=== PATIENT | female | born 1960 ===

== ENCOUNTER 2017-09-18 14:31 | Inpatient (IN) ==
[2017-09-18 15:25] LABS: Basophils % 0.9 % (0.0-0.8); Eosinophils # 0.1 10*3/uL (0.0-0.87); Eosinophils % 3.5 % (0.00-10.9); Immature Granulocytes % 0.9 %; Immature Granulocytes Absolute 0.03 #; Lymphocytes # 0.6 10*3/uL (1.4-4.0); Lymphocytes % 16.4 % (21.3-54.2); Mean Corpuscular HGB Conc 30.8 GM/DL (32-36); Mean Corpuscular Hemoglobin 37 PG (27-34); Mean Corpuscular Volume 119.2 FL (87-102); Mean Platelet Volume 11.8 FL (9.6-12.0); Monocytes # 0.3 10*3/uL (0.11-0.8); Monocytes % 9.1 % (1.7-12.7); Neutrophils # 2.4 10*3/uL (1.4-7.4); Neutrophils % 69.2 % (38.7-73.9); Red Blood Count 1.77 MC/CUMM (3.8-5.5); Red Cell Distribution Width 17.9 % (9.3-17.3); White Blood Count 3.4 T/CUMM (4-12)
[2017-09-18 15:31] LABS: Hemoglobin 6.5 GM/DL (12.0-16.0); Platelet Count 37 T/CUMM (130-400)
[2017-09-18 15:32] LABS: Hematocrit 21.1 VOL% (35.7-47.0)
[2017-09-18 15:55] LABS: Albumin 2.7 G/DL (3.4-5.0); Calcium 7.2 MG/DL (8.5-10.1); Osmolality,Calculated 290.5 MOS/KG (273-304); Potassium 3.8 MMOL/L (3.5-5.1); Total Protein 7.3 G/DL (6.4-8.3)
[2017-09-18 16:40] LABS: Hypochromasia 2+; Platelet Estimate Decreased; Target Cells 1+
[2017-09-18] MEDS ORDERED: GLUCAGON 1 MG VIAL IM PRN (16:44)
[2017-09-18] MEDS ORDERED: DEXTROSE 50% 25 GM/50 ML VIAL IV PRN (16:44)
[2017-09-18] MEDS ORDERED: DOCUSATE SODIUM 100 MG CAPSULE PO PRN (16:44)
[2017-09-18] MEDS: GABAPENTIN 100 MG CAPSULE PO SCH (21:56)
[2017-09-18] MEDS: SIMVASTATIN 20 MG TABLET PO SCH (21:56)
[2017-09-18] MEDS: CARVEDILOL 25 MG TABLET PO SCH (21:56)
[2017-09-18] MEDS: INSULIN REGULAR 100 UNIT/ML SUBCUT SCH (22:51)
[2017-09-18] MEDS: ACETAMINOPHEN 325 MG TABLET PO PRN (23:06)
[2017-09-19 05:24] LABS: Basophils % 0.7 % (0.0-0.8); Eosinophils # 0.1 10*3/uL (0.0-0.87); Eosinophils % 3.1 % (0.00-10.9); Hematocrit 18.9 VOL% (35.7-47.0); Immature Granulocytes Absolute 0.04 #; Lymphocytes # 0.6 10*3/uL (1.4-4.0); Lymphocytes % 13.3 % (21.3-54.2); Mean Corpuscular HGB Conc 30.7 GM/DL (32-36); Mean Corpuscular Hemoglobin 37 PG (27-34); Mean Corpuscular Volume 119.6 FL (87-102); Mean Platelet Volume 12.1 FL (9.6-12.0); Monocytes # 0.4 10*3/uL (0.11-0.8); Monocytes % 8.4 % (1.7-12.7); Neutrophils # 3.1 10*3/uL (1.4-7.4); Neutrophils % 73.5 % (38.7-73.9); Red Blood Count 1.58 MC/CUMM (3.8-5.5); White Blood Count 4.2 T/CUMM (4-12)
[2017-09-19 05:36] LABS: Hemoglobin 5.8 GM/DL (12.0-16.0)
[2017-09-19 05:37] LABS: Platelet Count 36 T/CUMM (130-400)
[2017-09-19 05:57] LABS: Calcium 6.5 MG/DL (8.5-10.1); Osmolality,Calculated 298.1 MOS/KG (273-304); Potassium 4.4 MMOL/L (3.5-5.1)
[2017-09-19 06:00] LABS: Hypochromasia 1+
[2017-09-19 06:01] LABS: Giant Platelets Few; Ovalocytes Slight; Platelet Estimate Decreased
[2017-09-19 06:47] LABS: HIV Antigen/Antibody Result Nonreactive (Nonreactive)
[2017-09-19] MEDS: MULTIVITAMIN (BEROCCA) TABLET PO SCH (08:50)
[2017-09-19] MEDS: amLODIPine 2.5 MG TABLET PO SCH (08:50)
[2017-09-19] MEDS: SEVELAMER CARBONATE 800 MG TABLET PO SCH ×3 (08:50→17:14)
[2017-09-19] MEDS: INSULIN REGULAR 100 UNIT/ML SUBCUT SCH ×4 (08:50→21:24)
[2017-09-19] MEDS: CARVEDILOL 25 MG TABLET PO SCH ×2 (08:50→21:25)
[2017-09-19] MEDS ORDERED: PANTOPRAZOLE 40 MG TABLET PO SCH (09:00)
[2017-09-19] MEDS ORDERED: SODIUM CHLORIDE 0.9% 1,000 ML IV PRN (09:54)
[2017-09-19] MEDS ORDERED: CINACALCET 30 MG TABLET PO SCH (17:00)
[2017-09-19] MEDS: ACETAMINOPHEN 325 MG TABLET PO PRN (17:14)
[2017-09-19 18:13] LABS: Hematocrit 25.6 VOL% (35.7-47.0); Hemoglobin 8.1 GM/DL (12.0-16.0)
[2017-09-19] MEDS: GABAPENTIN 100 MG CAPSULE PO SCH (21:25)
[2017-09-19] MEDS: SIMVASTATIN 20 MG TABLET PO SCH (21:25)
[2017-09-20] MEDS: INSULIN REGULAR 100 UNIT/ML SUBCUT SCH ×2 (08:16→11:36)
[2017-09-20] MEDS: MULTIVITAMIN (BEROCCA) TABLET PO SCH (10:56)
[2017-09-20] MEDS: CARVEDILOL 25 MG TABLET PO SCH (10:56)
[2017-09-20] MEDS: amLODIPine 2.5 MG TABLET PO SCH (10:56)
[2017-09-20] MEDS: SEVELAMER CARBONATE 800 MG TABLET PO SCH ×2 (10:57→11:41)
[2017-09-20 10:59] LABS: Ferritin 791.1 ng/ml (8-252); Total Protein 7.1 G/DL (6.4-8.3)
[2017-09-20 11:24] VITALS: BP 129/65
[2017-09-23 11:48] LABS: Albumin (SPE) 3.7 G/DL (3.2-5.3); Albumin (SPE) Rel % 52.5 %; Alpha 1 (SPE) 0.2 G/DL (0.1-0.4); Alpha 1 (SPE) Rel % 3.3 %; Alpha 2 (SPE) 0.5 G/DL (0.4-1.0); Alpha 2 (SPE) Rel % 7.8 %; Beta (SPE) 0.7 G/DL (0.5-1.1); Gamma (SPE) 1.9 G/DL (0.7-1.7); Gamma (SPE) Rel % 26.4 %; Total Protein (Chem) 7.1 G/DL (6.4-8.3)
== END 2017-09-20 17:20 | disposition home or self-care (01) | DRG 811 ==
LOC: EDUNIT# → EDBD → N.ED 14:31 → N.EDINP 14:31 → N.3E 19:03
PROVIDERS: ADMIT Internal Medicine; ATTEND Internal Medicine

== ENCOUNTER 2017-10-06 17:54 | Inpatient (IN) ==
[2017-10-06] MEDS ORDERED: GLUCAGON 1 MG VIAL IM PRN (21:54)
[2017-10-06] MEDS ORDERED: ONDANSETRON 4 MG/2 ML VIAL IV PRN (21:54)
[2017-10-06] MEDS ORDERED: DEXTROSE 50% 25 GM/50 ML VIAL IV PRN (21:54)
[2017-10-06] MEDS: ACETAMINOPHEN 325 MG TABLET PO PRN (23:34)
[2017-10-06] MEDS: CEFTAROLINE 600 MG in SODIUM CHLORIDE 0.9% 100 ML IV SCH (23:47)
[2017-10-07] MEDS: ACETAMINOPHEN 325 MG TABLET PO PRN ×3 (04:47→18:00)
[2017-10-07 05:43] LABS: Basophils % 0.3 % (0.0-0.8); Eosinophils # 0.1 10*3/uL (0.0-0.87); Eosinophils % 0.9 % (0.00-10.9); Hematocrit 27.4 VOL% (35.7-47.0); Hemoglobin 8.8 GM/DL (12.0-16.0); Immature Granulocytes % 0.6 %; Immature Granulocytes Absolute 0.05 #; Lymphocytes # 0.3 10*3/uL (1.4-4.0); Lymphocytes % 3.8 % (21.3-54.2); Mean Corpuscular HGB Conc 32.1 GM/DL (32-36); Mean Corpuscular Hemoglobin 36 PG (27-34); Mean Corpuscular Volume 112.3 FL (87-102); Mean Platelet Volume 12.7 FL (9.6-12.0); Monocytes # 0.2 10*3/uL (0.11-0.8); NRBC # 0.02 10*3/uL; Neutrophils # 7.3 10*3/uL (1.4-7.4); Neutrophils % 91.4 % (38.7-73.9); Red Blood Count 2.44 MC/CUMM (3.8-5.5); Red Cell Distribution Width 19.5 % (9.3-17.3)
[2017-10-07 05:52] LABS: INR 1.4; PT Patient Result 14.9 SECS
[2017-10-07 05:53] LABS: INR 1.4; PT Patient Result 14.9 SECS; Partial Thromboplastin Time 32.1 SECS (0-40)
[2017-10-07 05:57] LABS: Platelet Count 29 T/CUMM (130-400)
[2017-10-07 06:14] LABS: Calcium 7.2 MG/DL (8.5-10.1); Osmolality,Calculated 291.4 MOS/KG (273-304); Potassium 4.2 MMOL/L (3.5-5.1)
[2017-10-07 07:08] LABS: Band Neutrophils 18 % (0-10); Eosinophils 1 % (0-10); Hypochromasia 2+; Lymphocytes 2 % (20-55); Microcytosis 2+; Platelet Estimate Decreased; Segmented Neutrophils 74 % (50-85); Total Cells Counted 100
[2017-10-07] MEDS ORDERED: ALBUTEROL 2.5 MG/3 ML NEB RESP TX PRN (08:09)
[2017-10-07] MEDS: INSULIN LISPRO 100 UNIT/ML SUBCUT SCH ×4 (08:34→21:13)
[2017-10-07] MEDS: SEVELAMER CARBONATE 800 MG TABLET PO SCH ×3 (09:26→17:58)
[2017-10-07] MEDS: MULTIVITAMIN (BEROCCA) TABLET PO SCH (09:27)
[2017-10-07] MEDS: MULTIVITAMIN (CENTRUM) TABLET PO SCH (09:27)
[2017-10-07] MEDS: CARVEDILOL 25 MG TABLET PO SCH ×2 (09:27→21:12)
[2017-10-07] MEDS: CLINDAMYCIN INJ 600 MG in PREMIX 1 EACH IV SCH ×2 (13:29→17:59)
[2017-10-07] MEDS: CEFTAROLINE 600 MG in SODIUM CHLORIDE 0.9% 100 ML IV SCH (13:44)
[2017-10-07] MEDS ORDERED: CEFTAROLINE 200 MG in SODIUM CHLORIDE 0.9% 50 ML IV SCH (14:00)
[2017-10-07] MEDS: LOPERAMIDE 2 MG CAPSULE PO PRN ×2 (15:56→18:00)
[2017-10-07] MEDS: CINACALCET 30 MG TABLET PO SCH (17:58)
[2017-10-07] MEDS: ZINC OXIDE PASTE 113 GM TUBE TOP PRN (18:38)
[2017-10-07] MEDS ORDERED: amLODIPine 2.5 MG TABLET PO SCH (21:00)
[2017-10-07] MEDS: SIMVASTATIN 20 MG TABLET PO SCH (22:06)
[2017-10-07] MEDS: GABAPENTIN 100 MG CAPSULE PO SCH (22:06)
[2017-10-08] MEDS: CLINDAMYCIN INJ 600 MG in PREMIX 1 EACH IV SCH ×2 (03:02→09:00)
[2017-10-08 06:04] LABS: Basophils % 0.2 % (0.0-0.8); Eosinophils # 0.1 10*3/uL (0.0-0.87); Eosinophils % 0.9 % (0.00-10.9); Hematocrit 23.7 VOL% (35.7-47.0); Hemoglobin 7.5 GM/DL (12.0-16.0); Immature Granulocytes % 1.2 %; Immature Granulocytes Absolute 0.11 #; Lymphocytes # 0.5 10*3/uL (1.4-4.0); Lymphocytes % 5.1 % (21.3-54.2); Mean Corpuscular HGB Conc 31.6 GM/DL (32-36); Mean Corpuscular Hemoglobin 35 PG (27-34); Mean Corpuscular Volume 110.2 FL (87-102); Mean Platelet Volume 13.7 FL (9.6-12.0); Monocytes # 0.6 10*3/uL (0.11-0.8); Monocytes % 6.6 % (1.7-12.7); NRBC # 0.02 10*3/uL; Neutrophils # 7.7 10*3/uL (1.4-7.4); Red Blood Count 2.15 MC/CUMM (3.8-5.5); Red Cell Distribution Width 19.6 % (9.3-17.3)
[2017-10-08 06:18] LABS: Platelet Count 29 T/CUMM (130-400)
[2017-10-08 06:29] LABS: Band Neutrophils 5 % (0-10); Eosinophils 2 % (0-10); Hypochromasia 1+; Lymphocytes 5 % (20-55); Ovalocytes Slight; Platelet Estimate Decreased; Segmented Neutrophils 81 % (50-85); Total Cells Counted 100
[2017-10-08 06:30] LABS: Microcytosis 1+
[2017-10-08 06:30] LABS: Calcium 7.4 MG/DL (8.5-10.1); Osmolality,Calculated 276.1 MOS/KG (273-304); Potassium 4.2 MMOL/L (3.5-5.1)
[2017-10-08] MEDS: ACETAMINOPHEN 325 MG TABLET PO PRN ×3 (06:41→20:27)
[2017-10-08] MEDS ORDERED: SODIUM CHLORIDE 0.9% 100 ML IV ONE (07:29)
[2017-10-08] MEDS ORDERED: ceFAZolin 1,000 MG VIAL ONE (07:29)
[2017-10-08] MEDS: INSULIN LISPRO 100 UNIT/ML SUBCUT SCH ×4 (07:50→20:15)
[2017-10-08] MEDS: SEVELAMER CARBONATE 800 MG TABLET PO SCH ×4 (07:55→19:06)
[2017-10-08] MEDS: MULTIVITAMIN (CENTRUM) TABLET PO SCH (07:55)
[2017-10-08] MEDS: CARVEDILOL 25 MG TABLET PO SCH (07:55)
[2017-10-08] MEDS: MULTIVITAMIN (BEROCCA) TABLET PO SCH (07:55)
[2017-10-08] MEDS ORDERED: ceFAZolin 1,000 MG in SYRINGE 1 EACH IV SCH (09:00)
[2017-10-08] MEDS ORDERED: SODIUM CHLORIDE 0.9% 250 ML IV ONE (10:06)
[2017-10-08] MEDS ORDERED: NOREPINEPHRINE 8 MG in SODIUM CHLORIDE 0.9% 242 ML IV PRN (12:16)
[2017-10-08] MEDS ORDERED: SODIUM CHLORIDE 0.9% 1,000 ML IV PRN (12:36)
[2017-10-08] MEDS ORDERED: NOREPINEPHRINE 4 MG/4 ML VIAL IV ONE ×2 (12:38)
[2017-10-08] MEDS ORDERED: PIPERACILLIN/TAZOBACTAM 2,250 MG in SODIUM CHLORIDE 0.9% 100 ML IV SCH (13:00)
[2017-10-08] MEDS: FAMOTIDINE 20 MG/2 ML VIAL IV SCH (13:06)
[2017-10-08] MEDS ORDERED: TOBRAMYCIN INJ 80 MG in SODIUM CHLORIDE 0.9% 100 ML IV PRN (13:07)
[2017-10-08] MEDS: MEROPENEM 1,000 MG in SODIUM CHLORIDE 0.9% 100 ML IV SCH (13:10)
[2017-10-08] MEDS ORDERED: CEFTAROLINE 200 MG in SODIUM CHLORIDE 0.9% 100 ML IV SCH (14:00)
[2017-10-08] MEDS ORDERED: TOBRAMYCIN INJ 160 MG in SODIUM CHLORIDE 0.9% 100 ML IV ONE (14:00)
[2017-10-08] MEDS: LOPERAMIDE 2 MG CAPSULE PO PRN (14:10)
[2017-10-08] MEDS: ZINC OXIDE PASTE 113 GM TUBE TOP PRN (14:10)
[2017-10-08] MEDS: CINACALCET 30 MG TABLET PO SCH (19:06)
[2017-10-08] MEDS ORDERED: VANCOMYCIN INJ 500 MG in SODIUM CHLORIDE 0.9% 100 ML IV PRN (19:18)
[2017-10-08] MEDS ORDERED: VANCOMYCIN INJ 1,500 MG in SODIUM CHLORIDE 0.9% 500 ML IV ONE (19:30)
[2017-10-08] MEDS: GABAPENTIN 100 MG CAPSULE PO SCH (20:25)
[2017-10-08] MEDS: SIMVASTATIN 20 MG TABLET PO SCH (20:25)
[2017-10-09 04:52] LABS: Basophils % 0.4 % (0.0-0.8); Eosinophils # 0.1 10*3/uL (0.0-0.87); Eosinophils % 1.5 % (0.00-10.9); Immature Granulocytes % 1.3 %; Immature Granulocytes Absolute 0.11 #; Lymphocytes # 0.5 10*3/uL (1.4-4.0); Lymphocytes % 6.5 % (21.3-54.2); Mean Corpuscular HGB Conc 32.1 GM/DL (32-36); Mean Corpuscular Hemoglobin 34 PG (27-34); Mean Corpuscular Volume 105.3 FL (87-102); Monocytes # 0.6 10*3/uL (0.11-0.8); Monocytes % 7.7 % (1.7-12.7); NRBC # 0.05 10*3/uL; Neutrophils # 6.8 10*3/uL (1.4-7.4); Neutrophils % 82.6 % (38.7-73.9); Red Blood Count 2.66 MC/CUMM (3.8-5.5); Red Cell Distribution Width 23.2 % (9.3-17.3); White Blood Count 8.2 T/CUMM (4-12)
[2017-10-09 04:58] LABS: Platelet Count 24 T/CUMM (130-400)
[2017-10-09 05:21] LABS: Hypochromasia 1+; Microcytosis 1+; Ovalocytes Slight; Platelet Estimate Decreased
[2017-10-09] MEDS: INSULIN LISPRO 100 UNIT/ML SUBCUT SCH ×4 (07:44→22:45)
[2017-10-09] MEDS: SEVELAMER CARBONATE 800 MG TABLET PO SCH ×3 (08:20→18:12)
[2017-10-09] MEDS: MULTIVITAMIN (BEROCCA) TABLET PO SCH (09:15)
[2017-10-09] MEDS: MULTIVITAMIN (CENTRUM) TABLET PO SCH (09:15)
[2017-10-09] MEDS: MEROPENEM 1,000 MG in SODIUM CHLORIDE 0.9% 100 ML IV SCH (09:15)
[2017-10-09] MEDS: ACETAMINOPHEN 325 MG TABLET PO PRN (12:22)
[2017-10-09] MEDS: FAMOTIDINE 20 MG/2 ML VIAL IV SCH (12:51)
[2017-10-09] MEDS: oxyCODONE/ACETAMINOPHEN 5-325 MG TABLET PO PRN (16:44)
[2017-10-09] MEDS: CINACALCET 30 MG TABLET PO SCH (18:12)
[2017-10-09] MEDS ORDERED: TOBRAMYCIN INJ 80 MG in SODIUM CHLORIDE 0.9% 100 ML IV ONE (20:30)
[2017-10-09] MEDS ORDERED: VANCOMYCIN INJ 500 MG in SODIUM CHLORIDE 0.9% 100 ML IV ONE (21:00)
[2017-10-09] MEDS: GABAPENTIN 100 MG CAPSULE PO SCH (22:46)
[2017-10-09] MEDS: SIMVASTATIN 20 MG TABLET PO SCH (22:46)
[2017-10-10] MEDS: MULTIVITAMIN (BEROCCA) TABLET PO SCH (09:32)
[2017-10-10] MEDS: MULTIVITAMIN (CENTRUM) TABLET PO SCH (09:32)
[2017-10-10] MEDS: MEROPENEM 1,000 MG in SODIUM CHLORIDE 0.9% 100 ML IV SCH (09:33)
[2017-10-10] MEDS: INSULIN LISPRO 100 UNIT/ML SUBCUT SCH ×4 (09:33→21:49)
[2017-10-10] MEDS: SEVELAMER CARBONATE 800 MG TABLET PO SCH ×4 (09:33→16:50)
[2017-10-10] MEDS: FAMOTIDINE 20 MG/2 ML VIAL IV SCH (09:33)
[2017-10-10] MEDS ORDERED: TUBERCULIN SKIN TEST 0.1 ML SYRINGE INTRADERM ONE (15:00)
[2017-10-10] MEDS: CINACALCET 30 MG TABLET PO SCH (16:50)
[2017-10-10] MEDS: GABAPENTIN 100 MG CAPSULE PO SCH (21:48)
[2017-10-10] MEDS: SIMVASTATIN 20 MG TABLET PO SCH (21:48)
[2017-10-11 07:35] VITALS: BP 114/48
[2017-10-11] MEDS: INSULIN LISPRO 100 UNIT/ML SUBCUT SCH ×2 (08:36→11:47)
[2017-10-11] MEDS: MULTIVITAMIN (BEROCCA) TABLET PO SCH (08:47)
[2017-10-11] MEDS: SEVELAMER CARBONATE 800 MG TABLET PO SCH ×2 (08:47→11:48)
[2017-10-11] MEDS: MULTIVITAMIN (CENTRUM) TABLET PO SCH (08:47)
[2017-10-11] MEDS: oxyCODONE/ACETAMINOPHEN 5-325 MG TABLET PO PRN (08:47)
[2017-10-11] MEDS: MEROPENEM 1,000 MG in SODIUM CHLORIDE 0.9% 100 ML IV SCH (08:48)
[2017-10-11] MEDS: FAMOTIDINE 20 MG/2 ML VIAL IV SCH (08:50)
[2017-10-11] MEDS ORDERED: EPOETIN ALFA 2,000 UNIT/1 ML VIAL IV PRN (09:36)
[2017-10-11] MEDS ORDERED: TOBRAMYCIN INJ 80 MG in SODIUM CHLORIDE 0.9% 100 ML IV ONE (13:00)
[2017-10-11] MEDS ORDERED: VANCOMYCIN INJ 500 MG in SODIUM CHLORIDE 0.9% 100 ML IV ONE (14:00)
[2017-10-11] MEDS ORDERED: CIPROFLOXACIN 500 MG TABLET PO SCH (21:00)
[2017-10-12] MEDS ORDERED: CALCITRIOL 0.25 MCG CAPSULE PO SCH (09:00)
== END 2017-10-11 13:45 | disposition home or self-care (01) | DRG 871 ==
LOC: SUATTDRO 18:00 → N.3E 19:40 → SUATTDRO 19:40 → N.ICU 10-08 12:22 → N.2E 10-09 20:04
PROVIDERS: ADMIT Internal Medicine; ATTEND Internal Medicine

== ENCOUNTER 2017-10-11 20:42 | Inpatient (IN) ==
[2017-10-12] MEDS ORDERED: GLUCAGON 1 MG VIAL IM PRN (00:47)
[2017-10-12] MEDS ORDERED: DEXTROSE 50% 25 GM/50 ML VIAL IV PRN (00:47)
[2017-10-12] MEDS ORDERED: ONDANSETRON 4 MG/2 ML VIAL IV PRN (00:47)
[2017-10-12 02:21] LABS: Basophils # 0.1 10*3/uL (0.0-0.2); Basophils % 1.6 % (0.0-0.8); Eosinophils # 0.1 10*3/uL (0.0-0.87); Eosinophils % 3.5 % (0.00-10.9); Hematocrit 30.8 VOL% (35.7-47.0); Hemoglobin 9.5 GM/DL (12.0-16.0); Immature Granulocytes % 5.1 %; Immature Granulocytes Absolute 0.19 #; Lymphocytes # 0.5 10*3/uL (1.4-4.0); Lymphocytes % 14.6 % (21.3-54.2); Mean Corpuscular HGB Conc 30.8 GM/DL (32-36); Mean Corpuscular Hemoglobin 34 PG (27-34); Mean Platelet Volume 13.6 FL (9.6-12.0); Monocytes # 0.7 10*3/uL (0.11-0.8); Monocytes % 17.8 % (1.7-12.7); NRBC # 0.08 10*3/uL; Neutrophils # 2.1 10*3/uL (1.4-7.4); Neutrophils % 57.4 % (38.7-73.9); Red Cell Distribution Width 20.5 % (9.3-17.3); White Blood Count 3.7 T/CUMM (4-12)
[2017-10-12] MEDS: cefTRIAXone 2,000 MG in SYRINGE 1 EACH IV SCH (02:29)
[2017-10-12 02:30] LABS: Platelet Count 23 T/CUMM (130-400)
[2017-10-12 02:49] LABS: Alanine Aminotransferase < 9 U/L (13-56); Albumin 2.4 G/DL (3.4-5.0); Alkaline Phosphatase 176 U/L (45-117); Aspartate Amino Transferase 26 U/L (0-37); Blood Urea Nitrogen 18 MG/DL (7-18); Calcium 7.3 MG/DL (8.5-10.1); Glucose 80 MG/DL (74-106); Osmolality,Calculated 279.4 MOS/KG (273-304); Potassium 4.5 MMOL/L (3.5-5.1); Sodium 140 MMOL/L (136-145)
[2017-10-12] MEDS ORDERED: LACTULOSE 20 GM/30 ML UDCUP PO PRN (05:21)
[2017-10-12 05:38] LABS: Eosinophils 4 % (0-10); Lymphocytes 20 % (20-55); Platelet Estimate Decreased; Segmented Neutrophils 62 % (50-85); Total Cells Counted 100
[2017-10-12] MEDS: INSULIN LISPRO 100 UNIT/ML SUBCUT SCH ×4 (08:00→22:44)
[2017-10-13] MEDS: cefTRIAXone 2,000 MG in SYRINGE 1 EACH IV SCH (01:10)
[2017-10-13 04:15] LABS: Basophils # 0.1 10*3/uL (0.0-0.2); Basophils % 1.1 % (0.0-0.8); Eosinophils # 0.2 10*3/uL (0.0-0.87); Eosinophils % 3.5 % (0.00-10.9); Hematocrit 29.6 VOL% (35.7-47.0); Hemoglobin 9.3 GM/DL (12.0-16.0); Immature Granulocytes % 5.1 %; Immature Granulocytes Absolute 0.23 #; Lymphocytes # 0.7 10*3/uL (1.4-4.0); Lymphocytes % 14.5 % (21.3-54.2); Mean Corpuscular HGB Conc 31.4 GM/DL (32-36); Mean Corpuscular Hemoglobin 35 PG (27-34); Mean Platelet Volume 12.4 FL (9.6-12.0); Monocytes # 0.7 10*3/uL (0.11-0.8); Monocytes % 14.8 % (1.7-12.7); NRBC # 0.08 10*3/uL; Neutrophils # 2.8 10*3/uL (1.4-7.4); Red Blood Count 2.69 MC/CUMM (3.8-5.5); Red Cell Distribution Width 19.9 % (9.3-17.3); White Blood Count 4.5 T/CUMM (4-12)
[2017-10-13 04:20] LABS: Platelet Count 27 T/CUMM (130-400)
[2017-10-13 04:49] LABS: Calcium 6.9 MG/DL (8.5-10.1); Osmolality,Calculated 284.4 MOS/KG (273-304); Potassium 4.9 MMOL/L (3.5-5.1)
[2017-10-13 05:13] LABS: Band Neutrophils 3 % (0-10); Eosinophils 5 % (0-10); Hypochromasia 1+; Lymphocytes 15 % (20-55); Nucleated Red Blood Cells 2 (0-5); Segmented Neutrophils 64 % (50-85); Total Cells Counted 100
[2017-10-13 05:14] LABS: Macrocytosis 1+; Platelet Estimate Decreased
[2017-10-13] MEDS: INSULIN LISPRO 100 UNIT/ML SUBCUT SCH ×4 (07:21→22:19)
[2017-10-13] MEDS ORDERED: CALCIUM GLUCONATE 2,000 MG in SODIUM CHLORIDE 0.9% 100 ML IV ONE (10:30)
[2017-10-13 11:02] LABS: Parathyroid Hormone Intact 720.7 PG/ML (18.4-80.1)
[2017-10-14] MEDS: cefTRIAXone 2,000 MG in SYRINGE 1 EACH IV SCH (01:46)
[2017-10-14 04:35] LABS: Basophils # 0.1 10*3/uL (0.0-0.2); Basophils % 1.2 % (0.0-0.8); Eosinophils # 0.2 10*3/uL (0.0-0.87); Eosinophils % 4.5 % (0.00-10.9); Hematocrit 30.7 VOL% (35.7-47.0); Hemoglobin 9.6 GM/DL (12.0-16.0); Immature Granulocytes Absolute 0.32 #; Lymphocytes # 0.7 10*3/uL (1.4-4.0); Lymphocytes % 16.2 % (21.3-54.2); Mean Corpuscular HGB Conc 31.3 GM/DL (32-36); Mean Corpuscular Hemoglobin 34 PG (27-34); Mean Corpuscular Volume 109.6 FL (87-102); Mean Platelet Volume 13.4 FL (9.6-12.0); Monocytes # 0.5 10*3/uL (0.11-0.8); Monocytes % 11.2 % (1.7-12.7); NRBC # 0.04 10*3/uL; Neutrophils # 2.4 10*3/uL (1.4-7.4); Neutrophils % 58.9 % (38.7-73.9); Red Cell Distribution Width 19.4 % (9.3-17.3)
[2017-10-14 04:43] LABS: Platelet Count 25 T/CUMM (130-400)
[2017-10-14 04:54] LABS: Calcium 7.6 MG/DL (8.5-10.1); Osmolality,Calculated 288.4 MOS/KG (273-304); Potassium 5.3 MMOL/L (3.5-5.1)
[2017-10-14 05:00] LABS: Band Neutrophils 3 % (0-10); Eosinophils 5 % (0-10); Lymphocytes 15 % (20-55); Platelet Estimate Decreased; Segmented Neutrophils 64 % (50-85); Total Cells Counted 100
[2017-10-14 05:01] LABS: Giant Platelets Few; Hypochromasia 1+; Macrocytosis 1+; Ovalocytes Slight; Polychromasia Slight
[2017-10-14] MEDS: INSULIN LISPRO 100 UNIT/ML SUBCUT SCH ×4 (11:38→20:19)
[2017-10-14] MEDS ORDERED: ALBUTEROL 2.5 MG/3 ML NEB RESP TX PRN ×2 (14:48→15:00)
[2017-10-14] MEDS ORDERED: ZINC OXIDE PASTE 113 GM TUBE TOP PRN (14:48)
[2017-10-14] MEDS: amLODIPine 2.5 MG TABLET PO SCH (15:17)
[2017-10-14] MEDS: CARVEDILOL 25 MG TABLET PO SCH ×2 (15:17→20:19)
[2017-10-14] MEDS: SEVELAMER CARBONATE 800 MG TABLET PO SCH (18:01)
[2017-10-14] MEDS ORDERED: SIMVASTATIN 20 MG TABLET PO SCH (21:00)
[2017-10-15] MEDS: cefTRIAXone 2,000 MG in SYRINGE 1 EACH IV SCH (02:56)
[2017-10-15] MEDS: SEVELAMER CARBONATE 800 MG TABLET PO SCH ×2 (09:17→12:41)
[2017-10-15] MEDS: amLODIPine 2.5 MG TABLET PO SCH (09:17)
[2017-10-15] MEDS: CARVEDILOL 25 MG TABLET PO SCH (09:17)
[2017-10-15] MEDS: INSULIN LISPRO 100 UNIT/ML SUBCUT SCH ×2 (09:44→12:42)
[2017-10-15 11:21] LABS: Calcium 7.5 MG/DL (8.5-10.1); Osmolality,Calculated 283.7 MOS/KG (273-304); Potassium 4.9 MMOL/L (3.5-5.1)
[2017-10-15 17:25] VITALS: BP 109/56
== END 2017-10-15 17:53 | disposition home or self-care (01) | DRG 683 ==
LOC: N.TELES 22:21 → SUATTDRO 22:21
PROVIDERS: ADMIT Family Medicine; ATTEND Internal Medicine

== ENCOUNTER 2017-12-04 12:59 | Observation (INO) ==
[2017-12-04 14:31] LABS: Basophils % 0.9 % (0.0-0.8); Eosinophils # 0.1 10*3/uL (0.0-0.87); Eosinophils % 2.4 % (0.00-10.9); Immature Granulocytes % 0.3 %; Immature Granulocytes Absolute 0.01 #; Lymphocytes # 0.4 10*3/uL (1.4-4.0); Lymphocytes % 11.4 % (21.3-54.2); Mean Corpuscular HGB Conc 30.8 GM/DL (32-36); Mean Corpuscular Hemoglobin 36 PG (27-34); Mean Corpuscular Volume 115.3 FL (87-102); Mean Platelet Volume 12.6 FL (9.6-12.0); Monocytes # 0.3 10*3/uL (0.11-0.8); Monocytes % 8.7 % (1.7-12.7); Neutrophils # 2.5 10*3/uL (1.4-7.4); Neutrophils % 76.3 % (38.7-73.9); Red Cell Distribution Width 17.5 % (9.3-17.3); White Blood Count 3.3 T/CUMM (4-12)
[2017-12-04 14:38] LABS: Hematocrit 21.1 VOL% (35.7-47.0); Hemoglobin 6.5 GM/DL (12.0-16.0); Platelet Count 31 T/CUMM (130-400); Red Blood Count 1.83 MC/CUMM (3.8-5.5)
[2017-12-04 14:50] LABS: Albumin 2.6 G/DL (3.4-5.0); Bilirubin,Total 0.9 MG/DL (0.2-1.0); Calcium 7.2 MG/DL (8.5-10.1); Potassium 4.5 MMOL/L (3.5-5.1); Total Protein 7.3 G/DL (6.4-8.3)
[2017-12-04] MEDS ORDERED: ONDANSETRON 4 MG/2 ML VIAL IV PRN (15:28)
[2017-12-04] MEDS ORDERED: DEXTROSE 50% 25 GM/50 ML VIAL IV PRN (15:28)
[2017-12-04] MEDS ORDERED: GLUCAGON 1 MG VIAL IM PRN (15:28)
[2017-12-04] MEDS ORDERED: ACETAMINOPHEN 325 MG TABLET PO PRN (15:28)
[2017-12-04] MEDS ORDERED: SODIUM CHLORIDE 0.9% 1,000 ML IV PRN ×2 (15:55→18:34)
[2017-12-04] MEDS: INSULIN LISPRO 100 UNIT/ML SUBCUT SCH ×2 (18:30→21:59)
[2017-12-04 19:14] LABS: Band Neutrophils 6 % (0-10); Eosinophils 3 % (0-10); Lymphocytes 11 % (20-55); Metamyelocytes 2 %; Segmented Neutrophils 69 % (50-85); Total Cells Counted 100
[2017-12-04 19:15] LABS: Acanthocytes Few; Anisocytosis 3+; Hypochromasia 2+; Macrocytosis 2+; Microcytosis 1+; Ovalocytes 1+; Platelet Estimate Decreased; Polychromasia 2+
[2017-12-04] MEDS ORDERED: ACETAMINOPHEN 500 MG TABLET PO PRN (19:47)
[2017-12-04] MEDS: MULTIVITAMIN (CENTRUM) TABLET PO SCH (21:58)
[2017-12-04] MEDS: CARVEDILOL 25 MG TABLET PO SCH (21:59)
[2017-12-04] MEDS: GABAPENTIN 100 MG CAPSULE PO SCH (21:59)
[2017-12-04] MEDS: amLODIPine 2.5 MG TABLET PO SCH (21:59)
[2017-12-05 01:41] LABS: Basophils % 0.8 % (0.0-0.8); Eosinophils # 0.1 10*3/uL (0.0-0.87); Eosinophils % 2.2 % (0.00-10.9); Hematocrit 20.7 VOL% (35.7-47.0); Immature Granulocytes % 0.3 %; Immature Granulocytes Absolute 0.01 #; Lymphocytes # 0.5 10*3/uL (1.4-4.0); Lymphocytes % 12.6 % (21.3-54.2); Mean Corpuscular HGB Conc 30.4 GM/DL (32-36); Mean Corpuscular Hemoglobin 33 PG (27-34); Mean Corpuscular Volume 109.5 FL (87-102); Mean Platelet Volume 11.6 FL (9.6-12.0); Monocytes # 0.4 10*3/uL (0.11-0.8); Monocytes % 10.1 % (1.7-12.7); NRBC # 0.02 10*3/uL; Neutrophils # 2.7 10*3/uL (1.4-7.4); Red Blood Count 1.89 MC/CUMM (3.8-5.5); White Blood Count 3.7 T/CUMM (4-12)
[2017-12-05 01:48] LABS: Hemoglobin 6.3 GM/DL (12.0-16.0); Platelet Count 31 T/CUMM (130-400)
[2017-12-05 02:13] LABS: Calcium 7.1 MG/DL (8.5-10.1); Osmolality,Calculated 301.3 MOS/KG (273-304); Potassium 4.9 MMOL/L (3.5-5.1)
[2017-12-05 02:14] LABS: Hypochromasia 2+; Platelet Estimate Decreased; Polychromasia Few
[2017-12-05 02:16] LABS: Anisocytosis 2+; Microcytosis 2+
[2017-12-05] MEDS ORDERED: SODIUM CHLORIDE 0.9% 1,000 ML IV PRN (07:30)
[2017-12-05] MEDS: PANTOPRAZOLE 40 MG TABLET PO SCH (09:05)
[2017-12-05] MEDS: SEVELAMER CARBONATE 800 MG TABLET PO SCH ×3 (09:05→17:20)
[2017-12-05] MEDS: CARVEDILOL 25 MG TABLET PO SCH ×2 (09:05→17:20)
[2017-12-05] MEDS: INSULIN LISPRO 100 UNIT/ML SUBCUT SCH ×4 (13:25→21:27)
[2017-12-05 14:44] LABS: Hematocrit 28.8 VOL% (35.7-47.0); Hemoglobin 9.4 GM/DL (12.0-16.0)
[2017-12-05] MEDS: GABAPENTIN 100 MG CAPSULE PO SCH (20:22)
[2017-12-05] MEDS: amLODIPine 2.5 MG TABLET PO SCH (20:22)
[2017-12-05] MEDS: MULTIVITAMIN (CENTRUM) TABLET PO SCH (20:22)
[2017-12-06] MEDS: INSULIN LISPRO 100 UNIT/ML SUBCUT SCH ×3 (08:03→16:53)
[2017-12-06] MEDS: SEVELAMER CARBONATE 800 MG TABLET PO SCH ×2 (09:22→13:43)
[2017-12-06] MEDS: PANTOPRAZOLE 40 MG TABLET PO SCH (09:22)
[2017-12-06] MEDS: CARVEDILOL 25 MG TABLET PO SCH (09:22)
[2017-12-06] MEDS ORDERED: HYDROCORTISONE 0.5% CREAM 28.35 GM TUBE TOP PRN (14:26)
[2017-12-06 15:51] VITALS: BP 139/62
== END 2017-12-06 17:02 | disposition home or self-care (01) ==
LOC: N.ED 12:59 → N.EDINP 12:59 → N.5E 17:35

== ENCOUNTER 2017-12-10 19:06 | Inpatient (IN) ==
[2017-12-10] MEDS ORDERED: ACETAMINOPHEN 160 MG/5 ML UDCUP ONE (19:33)
[2017-12-10] MEDS ORDERED: PANTOPRAZOLE 40 MG VIAL IV STA (19:33)
[2017-12-10 20:13] LABS: Basophils % 0.5 % (0.0-0.8); Eosinophils # 0.1 10*3/uL (0.0-0.87); Eosinophils % 3.8 % (0.00-10.9); Hemoglobin 8.8 GM/DL (12.0-16.0); Immature Granulocytes % 0.5 %; Immature Granulocytes Absolute 0.02 #; Lymphocytes # 0.6 10*3/uL (1.4-4.0); Lymphocytes % 17.2 % (21.3-54.2); Mean Corpuscular HGB Conc 31.4 GM/DL (32-36); Mean Corpuscular Hemoglobin 33 PG (27-34); Mean Corpuscular Volume 106.1 FL (87-102); Mean Platelet Volume 12.9 FL (9.6-12.0); Monocytes # 0.4 10*3/uL (0.11-0.8); Monocytes % 9.9 % (1.7-12.7); Neutrophils # 2.5 10*3/uL (1.4-7.4); Neutrophils % 68.1 % (38.7-73.9); Red Blood Count 2.64 MC/CUMM (3.8-5.5); Red Cell Distribution Width 21.7 % (9.3-17.3); White Blood Count 3.7 T/CUMM (4-12)
[2017-12-10 20:16] LABS: Platelet Count 30 T/CUMM (130-400)
[2017-12-10 20:30] LABS: INR 1.3; PT Patient Result 13.8 SECS; Partial Thromboplastin Time 29.9 SECS (0-40)
[2017-12-10 20:33] LABS: Albumin 2.9 G/DL (3.4-5.0); Calcium 7.7 MG/DL (8.5-10.1); Osmolality,Calculated 295.1 MOS/KG (273-304); Potassium 4.1 MMOL/L (3.5-5.1); Total Protein 7.9 G/DL (6.4-8.3)
[2017-12-10 20:41] LABS: Microcytosis 1+; Polychromasia Few
[2017-12-10 20:42] LABS: Anisocytosis Slight; Hypochromasia 1+; Platelet Estimate Decreased
[2017-12-10] MEDS ORDERED: DOCUSATE SODIUM 100 MG CAPSULE PO PRN (21:19)
[2017-12-10] MEDS ORDERED: ACETAMINOPHEN 325 MG TABLET PO PRN (21:19)
[2017-12-10] MEDS ORDERED: ONDANSETRON 4 MG/2 ML VIAL IV PRN (21:19)
[2017-12-10] MEDS ORDERED: GLUCAGON 1 MG VIAL IM PRN (21:30)
[2017-12-10] MEDS ORDERED: DEXTROSE 50% 25 GM/50 ML VIAL IV PRN (21:30)
[2017-12-10] MEDS: PANTOPRAZOLE 40 MG VIAL IV SCH (23:55)
[2017-12-11 02:38] LABS: Basophils % 0.6 % (0.0-0.8); Eosinophils # 0.1 10*3/uL (0.0-0.87); Eosinophils % 4.2 % (0.00-10.9); Hematocrit 25.4 VOL% (35.7-47.0); Immature Granulocytes % 0.6 %; Immature Granulocytes Absolute 0.02 #; Lymphocytes # 0.7 10*3/uL (1.4-4.0); Mean Corpuscular HGB Conc 31.5 GM/DL (32-36); Mean Corpuscular Hemoglobin 33 PG (27-34); Mean Corpuscular Volume 105.8 FL (87-102); Mean Platelet Volume 12.4 FL (9.6-12.0); Monocytes # 0.4 10*3/uL (0.11-0.8); Monocytes % 12.1 % (1.7-12.7); Neutrophils # 2.1 10*3/uL (1.4-7.4); Neutrophils % 62.5 % (38.7-73.9); Red Cell Distribution Width 21.5 % (9.3-17.3); White Blood Count 3.3 T/CUMM (4-12)
[2017-12-11 02:44] LABS: Platelet Count 28 T/CUMM (130-400)
[2017-12-11 03:06] LABS: Calcium 7.4 MG/DL (8.5-10.1)
[2017-12-11 03:25] LABS: Eosinophils 7 % (0-10); Lymphocytes 20 % (20-55); Macrocytosis 3+; Platelet Estimate Decreased; Segmented Neutrophils 68 % (50-85); Total Cells Counted 100
[2017-12-11] MEDS ORDERED: SODIUM CHLORIDE 0.9% 1,000 ML IV PRN (07:19)
[2017-12-11 07:38] LABS: % Iron Saturation 51.4 % (18-50)
[2017-12-11] MEDS: INSULIN REGULAR 100 UNIT/ML SUBCUT SCH ×4 (08:08→22:46)
[2017-12-11 09:51] LABS: Hepatitis A Ab IgM Quant 0.27 Index; Hepatitis A Ab IgM Result Negative (Negative); Hepatitis B Core IgM Result Negative (Negative); Hepatitis B Surface Ag Quant 0.13 Index; Hepatitis B Surface Ag Result Negative (Negative); Hepatitis C Virus Ab Quant 0.09 Index; Hepatitis C Virus Ab Result Negative (Negative)
[2017-12-11] MEDS: SEVELAMER CARBONATE 800 MG TABLET PO SCH ×3 (11:06→16:54)
[2017-12-11] MEDS: PANTOPRAZOLE 40 MG VIAL IV SCH ×2 (13:42→20:18)
[2017-12-11] MEDS: CARVEDILOL 25 MG TABLET PO SCH ×2 (13:42→20:18)
[2017-12-11] MEDS: amLODIPine 2.5 MG TABLET PO SCH (20:18)
[2017-12-11] MEDS: GABAPENTIN 100 MG CAPSULE PO SCH (20:18)
[2017-12-12 00:59] LABS: Hematocrit 24.2 VOL% (35.7-47.0); Hemoglobin 7.9 GM/DL (12.0-16.0)
[2017-12-12 01:00] LABS: Basophils % 0.7 % (0.0-0.8); Eosinophils # 0.1 10*3/uL (0.0-0.87); Eosinophils % 4.2 % (0.00-10.9); Hematocrit 23.9 VOL% (35.7-47.0); Hemoglobin 7.9 GM/DL (12.0-16.0); Immature Granulocytes % 0.7 %; Immature Granulocytes Absolute 0.02 #; Lymphocytes # 0.5 10*3/uL (1.4-4.0); Lymphocytes % 18.3 % (21.3-54.2); Mean Corpuscular HGB Conc 33.1 GM/DL (32-36); Mean Corpuscular Hemoglobin 34 PG (27-34); Mean Platelet Volume 12.4 FL (9.6-12.0); Monocytes # 0.3 10*3/uL (0.11-0.8); Monocytes % 11.6 % (1.7-12.7); Neutrophils # 1.8 10*3/uL (1.4-7.4); Neutrophils % 64.5 % (38.7-73.9); Red Blood Count 2.32 MC/CUMM (3.8-5.5); Red Cell Distribution Width 21.2 % (9.3-17.3); White Blood Count 2.8 T/CUMM (4-12)
[2017-12-12 01:03] LABS: Platelet Count 27 T/CUMM (130-400)
[2017-12-12 01:12] LABS: Calcium 7.6 MG/DL (8.5-10.1); Potassium 4.3 MMOL/L (3.5-5.1)
[2017-12-12] MEDS ORDERED: SODIUM CHLORIDE 0.9% 1,000 ML IV PRN (02:01)
[2017-12-12 03:42] LABS: Eosinophils 4 % (0-10); Lymphocytes 25 % (20-55); Segmented Neutrophils 71 % (50-85); Total Cells Counted 100
[2017-12-12 03:43] LABS: Anisocytosis 1+; Macrocytosis 2+; Platelet Estimate Decreased
[2017-12-12] MEDS: SEVELAMER CARBONATE 800 MG TABLET PO SCH ×3 (07:47→16:43)
[2017-12-12] MEDS: INSULIN REGULAR 100 UNIT/ML SUBCUT SCH ×4 (07:47→22:43)
[2017-12-12 08:12] LABS: Hematocrit 26.3 VOL% (35.7-47.0); Hemoglobin 8.6 GM/DL (12.0-16.0)
[2017-12-12] MEDS: PANTOPRAZOLE 40 MG VIAL IV SCH ×2 (10:10→22:43)
[2017-12-12] MEDS: CARVEDILOL 25 MG TABLET PO SCH ×2 (10:10→22:46)
[2017-12-12] MEDS ORDERED: ZINC OXIDE PASTE 113 GM TUBE TOP PRN (13:19)
[2017-12-12] MEDS: GABAPENTIN 100 MG CAPSULE PO SCH (22:46)
[2017-12-12] MEDS: amLODIPine 2.5 MG TABLET PO SCH (22:46)
[2017-12-13] MEDS: INSULIN REGULAR 100 UNIT/ML SUBCUT SCH ×3 (07:55→17:55)
[2017-12-13 08:01] VITALS: BP 145/60
[2017-12-13] MEDS: SEVELAMER CARBONATE 800 MG TABLET PO SCH ×3 (09:59→17:55)
[2017-12-13] MEDS: PANTOPRAZOLE 40 MG VIAL IV SCH (13:19)
[2017-12-13] MEDS: CARVEDILOL 25 MG TABLET PO SCH (13:20)
[2017-12-13] MEDS ORDERED: PANTOPRAZOLE 40 MG TABLET PO SCH (19:00)
[2017-12-16 09:56] LABS: Mitochondrial Antibody (M2) <0.1 U
== END 2017-12-13 18:24 | disposition home or self-care (01) | DRG 377 ==
LOC: N.ED 19:06 → N.EDINP 21:19 → N.2E 21:42
PROVIDERS: ADMIT Internal Medicine Infectious Disease; ATTEND Internal Medicine Infectious Disease

== ENCOUNTER 2018-03-12 11:55 | Inpatient (IN) ==
[2018-03-12] MEDS ORDERED: PNEUMOCOCCAL VACCINE (13 VALENT) 0.5 ML SYRINGE IM ONE (13:50)
[2018-03-12] MEDS ORDERED: GLUCAGON 1 MG VIAL IM PRN ×2 (14:05)
[2018-03-12] MEDS ORDERED: BISACODYL 5 MG TABLET PO PRN (14:05)
[2018-03-12] MEDS ORDERED: ACETAMINOPHEN 325 MG TABLET PO PRN (14:05)
[2018-03-12] MEDS ORDERED: DOCUSATE SODIUM 100 MG CAPSULE PO PRN (14:05)
[2018-03-12] MEDS ORDERED: DEXTROSE 50% 25 GM/50 ML VIAL IV PRN (14:05)
[2018-03-12] MEDS ORDERED: guaiFENesin/DM ER 600-30 MG TABLET PO PRN (14:05)
[2018-03-12] MEDS ORDERED: ALBUTEROL 2.5 MG/3 ML NEB RESP TX PRN (14:05)
[2018-03-12] MEDS ORDERED: ZALEPLON 5 MG CAPSULE PO PRN (14:05)
[2018-03-12] MEDS ORDERED: ONDANSETRON 4 MG/2 ML VIAL IV PRN (14:05)
[2018-03-12] MEDS ORDERED: ZINC OXIDE PASTE 113 GM TUBE TOP PRN (14:15)
[2018-03-12] MEDS ORDERED: SODIUM CHLORIDE 0.9% 1,000 ML IV PRN (14:16)
[2018-03-12 14:41] LABS: Basophils % 0.2 % (0.0-0.8); Eosinophils # 0.2 10*3/uL (0.0-0.87); Eosinophils % 4.6 % (0.00-10.9); Immature Granulocytes Absolute 0.04 #; Lymphocytes # 0.7 10*3/uL (1.4-4.0); Mean Corpuscular Hemoglobin 35 PG (27-34); Mean Corpuscular Volume 112.4 FL (87-102); Mean Platelet Volume 11.8 FL (9.6-12.0); Monocytes # 0.3 10*3/uL (0.11-0.8); Monocytes % 8.3 % (1.7-12.7); NRBC # 0.03 10*3/uL; Neutrophils # 2.8 10*3/uL (1.4-7.4); Neutrophils % 67.9 % (38.7-73.9); Red Blood Count 1.29 MC/CUMM (3.8-5.5); Red Cell Distribution Width 25.8 % (9.3-17.3); White Blood Count 4.1 T/CUMM (4-12)
[2018-03-12 14:45] LABS: Hemoglobin 4.5 GM/DL (12.0-16.0)
[2018-03-12 14:46] LABS: Hematocrit 14.5 VOL% (35.7-47.0); Platelet Count 39 T/CUMM (130-400)
[2018-03-12 14:53] LABS: INR 1.4; PT Patient Result 14.3 SECS
[2018-03-12 14:59] LABS: Bilirubin,Total 0.9 MG/DL (0.2-1.0); Osmolality,Calculated 296.3 MOS/KG (273-304); Total Protein 6.8 G/DL (6.4-8.3)
[2018-03-12 15:21] LABS: Platelet Estimate Decreased
[2018-03-12 15:22] LABS: Hypochromasia 2+; Macrocytosis 1+
[2018-03-12] MEDS: INSULIN REGULAR 100 UNIT/ML SUBCUT SCH ×3 (16:24→21:09)
[2018-03-12] MEDS: PANTOPRAZOLE 40 MG VIAL IV SCH ×2 (16:36→20:32)
[2018-03-12] MEDS ORDERED: SEVELAMER CARBONATE 800 MG TABLET PO SCH (17:00)
[2018-03-12] MEDS ORDERED: hydrALAZINE 20 MG/1 ML VIAL IV PRN (19:03)
[2018-03-12] MEDS: MULTIVITAMIN (CENTRUM) TABLET PO SCH (20:32)
[2018-03-12] MEDS: GABAPENTIN 100 MG CAPSULE PO SCH (20:32)
[2018-03-12 21:18] LABS: Hematocrit 26.2 VOL% (35.7-47.0)
[2018-03-12 21:19] LABS: Hemoglobin 8.4 GM/DL (12.0-16.0)
[2018-03-13 02:03] LABS: Hematocrit 25.7 VOL% (35.7-47.0); Hemoglobin 8.3 GM/DL (12.0-16.0)
[2018-03-13 02:05] LABS: Basophils % 1.1 % (0.0-0.8); Eosinophils # 0.2 10*3/uL (0.0-0.87); Eosinophils % 5.5 % (0.00-10.9); Hematocrit 25.7 VOL% (35.7-47.0); Hemoglobin 8.5 GM/DL (12.0-16.0); Immature Granulocytes % 0.6 %; Immature Granulocytes Absolute 0.02 #; Lymphocytes # 0.6 10*3/uL (1.4-4.0); Lymphocytes % 17.4 % (21.3-54.2); Mean Corpuscular HGB Conc 33.1 GM/DL (32-36); Mean Corpuscular Hemoglobin 32 PG (27-34); Mean Corpuscular Volume 98.1 FL (87-102); Monocytes # 0.4 10*3/uL (0.11-0.8); Monocytes % 10.8 % (1.7-12.7); NRBC # 0.03 10*3/uL; Neutrophils # 2.3 10*3/uL (1.4-7.4); Neutrophils % 64.6 % (38.7-73.9); Red Blood Count 2.62 MC/CUMM (3.8-5.5); Red Cell Distribution Width 22.9 % (9.3-17.3); White Blood Count 3.6 T/CUMM (4-12)
[2018-03-13 02:18] LABS: Calcium 7.9 MG/DL (8.5-10.1); Osmolality,Calculated 282.4 MOS/KG (273-304)
[2018-03-13 02:40] LABS: Platelet Count 34 T/CUMM (130-400)
[2018-03-13] MEDS: INSULIN REGULAR 100 UNIT/ML SUBCUT SCH ×4 (07:32→20:02)
[2018-03-13] MEDS: DEXTROSE 50% 25 GM/50 ML VIAL IV PRN ×4 (07:42→20:02)
[2018-03-13] MEDS: PANTOPRAZOLE 40 MG VIAL IV SCH ×2 (08:01→20:02)
[2018-03-13 08:24] LABS: Hematocrit 25.9 VOL% (35.7-47.0); Hemoglobin 8.4 GM/DL (12.0-16.0)
[2018-03-13] MEDS: MULTIVITAMIN (CENTRUM) TABLET PO SCH (20:01)
[2018-03-13] MEDS: GABAPENTIN 100 MG CAPSULE PO SCH (20:01)
[2018-03-14] MEDS: DEXTROSE 50% 25 GM/50 ML VIAL IV PRN ×4 (00:30→12:30)
[2018-03-14 05:43] LABS: Basophils % 1.1 % (0.0-0.8); Eosinophils # 0.2 10*3/uL (0.0-0.87); Eosinophils % 7.3 % (0.00-10.9); Hematocrit 27.8 VOL% (35.7-47.0); Immature Granulocytes % 0.8 %; Immature Granulocytes Absolute 0.02 #; Lymphocytes # 0.5 10*3/uL (1.4-4.0); Lymphocytes % 18.8 % (21.3-54.2); Mean Corpuscular HGB Conc 32.4 GM/DL (32-36); Mean Corpuscular Hemoglobin 32 PG (27-34); Mean Platelet Volume 12.5 FL (9.6-12.0); Monocytes # 0.3 10*3/uL (0.11-0.8); Monocytes % 9.6 % (1.7-12.7); Neutrophils # 1.6 10*3/uL (1.4-7.4); Neutrophils % 62.4 % (38.7-73.9); Red Blood Count 2.78 MC/CUMM (3.8-5.5); Red Cell Distribution Width 22.8 % (9.3-17.3); White Blood Count 2.6 T/CUMM (4-12)
[2018-03-14 05:48] LABS: Platelet Count 35 T/CUMM (130-400)
[2018-03-14 06:04] LABS: Calcium 7.9 MG/DL (8.5-10.1); Osmolality,Calculated 291.4 MOS/KG (273-304); Potassium 4.2 MMOL/L (3.5-5.1)
[2018-03-14 06:08] LABS: Platelet Estimate Decreased
[2018-03-14 06:09] LABS: Anisocytosis 3+
[2018-03-14 06:10] LABS: Basophilic Stippling Slight
[2018-03-14] MEDS: INSULIN REGULAR 100 UNIT/ML SUBCUT SCH ×4 (07:26→20:04)
[2018-03-14] MEDS: PANTOPRAZOLE 40 MG VIAL IV SCH (08:05)
[2018-03-14] MEDS ORDERED: ENALAPRIL 2.5 MG/2 ML VIAL IV PRN (09:04)
[2018-03-14] MEDS ORDERED: cloNIDine 0.3 MG/24 HR PATCH TRANSDERM SCH (09:30)
[2018-03-14] MEDS ORDERED: PANTOPRAZOLE 40 MG TABLET PO SCH (19:00)
[2018-03-14] MEDS ORDERED: PANTOPRAZOLE 40 MG TABLET PO ONE (19:49)
[2018-03-14] MEDS: GABAPENTIN 100 MG CAPSULE PO SCH (20:03)
[2018-03-14] MEDS: PANTOPRAZOLE 40 MG TABLET PO SCH (20:03)
[2018-03-14] MEDS: MULTIVITAMIN (CENTRUM) TABLET PO SCH (20:03)
[2018-03-14] MEDS: POLYETHYLENE GLYCOL POWDER 17 GM PACK PO SCH (20:04)
[2018-03-15 06:31] LABS: Basophils % 0.8 % (0.0-0.8); Eosinophils # 0.2 10*3/uL (0.0-0.87); Eosinophils % 6.4 % (0.00-10.9); Hematocrit 25.4 VOL% (35.7-47.0); Hemoglobin 8.2 GM/DL (12.0-16.0); Immature Granulocytes % 0.3 %; Immature Granulocytes Absolute 0.01 #; Lymphocytes # 0.5 10*3/uL (1.4-4.0); Lymphocytes % 13.1 % (21.3-54.2); Mean Corpuscular HGB Conc 32.3 GM/DL (32-36); Mean Corpuscular Hemoglobin 32 PG (27-34); Mean Platelet Volume 12.1 FL (9.6-12.0); Monocytes # 0.3 10*3/uL (0.11-0.8); Monocytes % 9.4 % (1.7-12.7); Neutrophils # 2.5 10*3/uL (1.4-7.4); Red Blood Count 2.54 MC/CUMM (3.8-5.5); Red Cell Distribution Width 22.5 % (9.3-17.3); White Blood Count 3.6 T/CUMM (4-12)
[2018-03-15 06:40] LABS: Platelet Count 34 T/CUMM (130-400)
[2018-03-15 07:09] LABS: Albumin 1.9 G/DL (3.4-5.0); Bilirubin,Total 1.3 MG/DL (0.2-1.0); Calcium 7.8 MG/DL (8.5-10.1); Osmolality,Calculated 277.7 MOS/KG (273-304); Potassium 4.7 MMOL/L (3.5-5.1); Total Protein 7.1 G/DL (6.4-8.3)
[2018-03-15 07:16] LABS: Anisocytosis 1+; Band Neutrophils 2 % (0-10); Eosinophils 6 % (0-10); Lymphocytes 17 % (20-55); Macrocytosis 3+; Platelet Estimate Decreased; Segmented Neutrophils 75 % (50-85); Total Cells Counted 100
[2018-03-15] MEDS: INSULIN REGULAR 100 UNIT/ML SUBCUT SCH ×3 (07:32→20:56)
[2018-03-15] MEDS: PANTOPRAZOLE 40 MG TABLET PO SCH ×2 (08:00→20:55)
[2018-03-15] MEDS: POLYETHYLENE GLYCOL POWDER 17 GM PACK PO SCH ×2 (08:00→20:55)
[2018-03-15] MEDS: MULTIVITAMIN (CENTRUM) TABLET PO SCH (20:55)
[2018-03-15] MEDS: GABAPENTIN 100 MG CAPSULE PO SCH (20:55)
[2018-03-16 08:36] LABS: Basophils % 1.2 % (0.0-0.8); Eosinophils # 0.2 10*3/uL (0.0-0.87); Eosinophils % 5.2 % (0.00-10.9); Hematocrit 26.6 VOL% (35.7-47.0); Hemoglobin 8.2 GM/DL (12.0-16.0); Immature Granulocytes % 0.3 %; Immature Granulocytes Absolute 0.01 #; Lymphocytes # 0.6 10*3/uL (1.4-4.0); Lymphocytes % 17.4 % (21.3-54.2); Mean Corpuscular HGB Conc 30.8 GM/DL (32-36); Mean Corpuscular Hemoglobin 32 PG (27-34); Mean Corpuscular Volume 105.1 FL (87-102); Monocytes # 0.4 10*3/uL (0.11-0.8); Monocytes % 10.5 % (1.7-12.7); Neutrophils # 2.3 10*3/uL (1.4-7.4); Neutrophils % 65.4 % (38.7-73.9); Red Blood Count 2.53 MC/CUMM (3.8-5.5); Red Cell Distribution Width 22.4 % (9.3-17.3); White Blood Count 3.4 T/CUMM (4-12)
[2018-03-16 08:51] LABS: Platelet Count 36 T/CUMM (130-400)
[2018-03-16] MEDS: INSULIN REGULAR 100 UNIT/ML SUBCUT SCH ×2 (09:12→12:02)
[2018-03-16] MEDS: POLYETHYLENE GLYCOL POWDER 17 GM PACK PO SCH (09:13)
[2018-03-16] MEDS: PANTOPRAZOLE 40 MG TABLET PO SCH (09:13)
[2018-03-16 13:18] VITALS: BP 162/58
[2018-03-16 14:40] LABS: Hypochromasia 1+; Macrocytosis 1+; Platelet Estimate Decreased
[2018-03-16 14:41] LABS: Target Cells 1+
== END 2018-03-16 15:10 | disposition home or self-care (01) | DRG 808 ==
LOC: N.CC 13:24 → SUATTDRO 13:24 → N.2E 03-15 11:25
PROVIDERS: ADMIT Internal Medicine; ATTEND Hospitalist

== ENCOUNTER 2018-03-27 05:42 | Inpatient (IN) ==
[2018-03-27] MEDS ORDERED: ONDANSETRON 4 MG/2 ML VIAL IV PRN (07:24)
[2018-03-27] MEDS ORDERED: ACETAMINOPHEN 325 MG TABLET PO PRN (07:24)
[2018-03-27] MEDS ORDERED: SODIUM CHLORIDE 0.9% 1,000 ML IV PRN ×3 (07:36→19:50)
[2018-03-27 08:26] LABS: Basophils % 0.2 % (0.0-0.8); Eosinophils # 0.1 10*3/uL (0.0-0.87); Eosinophils % 3.2 % (0.00-10.9); Immature Granulocytes % 0.5 %; Immature Granulocytes Absolute 0.02 #; Lymphocytes # 0.8 10*3/uL (1.4-4.0); Lymphocytes % 17.6 % (21.3-54.2); Mean Corpuscular HGB Conc 30.3 GM/DL (32-36); Mean Corpuscular Hemoglobin 34 PG (27-34); Mean Corpuscular Volume 112.8 FL (87-102); Mean Platelet Volume 11.5 FL (9.6-12.0); Monocytes # 0.6 10*3/uL (0.11-0.8); Monocytes % 12.9 % (1.7-12.7); NRBC # 0.02 10*3/uL; Neutrophils # 2.8 10*3/uL (1.4-7.4); Neutrophils % 65.6 % (38.7-73.9); Platelet Count 51 T/CUMM (130-400); Red Blood Count 1.17 MC/CUMM (3.8-5.5); Red Cell Distribution Width 21.8 % (9.3-17.3); White Blood Count 4.3 T/CUMM (4-12)
[2018-03-27 08:48] LABS: Hematocrit 13.2 VOL% (35.7-47.0)
[2018-03-27] MEDS: PANTOPRAZOLE 40 MG TABLET PO SCH ×2 (08:58→21:19)
[2018-03-27 09:08] LABS: Platelet Estimate Decreased
[2018-03-27] MEDS ORDERED: EPOETIN ALFA 10,000 UNIT/1 ML VIAL IV PRN (11:36)
[2018-03-27] MEDS: BISACODYL 5 MG TABLET PO SCH ×2 (14:59→21:19)
[2018-03-27] MEDS ORDERED: POLYETHYLENE GLYCOL 3350/ELECTROLYTES 4,000 ML BOTTLE PO ONE (18:00)
[2018-03-27 19:32] LABS: Hematocrit 18.7 VOL% (35.7-47.0)
[2018-03-27] MEDS ORDERED: MAGNESIUM CITRATE 300 ML BOTTLE PO ONE (21:00)
[2018-03-28] MEDS: BISACODYL 5 MG TABLET PO SCH (06:53)
[2018-03-28 07:05] LABS: Basophils % 1.1 % (0.0-0.8); Eosinophils # 0.2 10*3/uL (0.0-0.87); Eosinophils % 3.9 % (0.00-10.9); Hematocrit 26.1 VOL% (35.7-47.0); Hemoglobin 8.6 GM/DL (12.0-16.0); Immature Granulocytes % 2.1 %; Immature Granulocytes Absolute 0.08 #; Lymphocytes # 0.6 10*3/uL (1.4-4.0); Mean Corpuscular Hemoglobin 33 PG (27-34); Mean Corpuscular Volume 98.9 FL (87-102); Mean Platelet Volume 11.1 FL (9.6-12.0); Monocytes # 0.3 10*3/uL (0.11-0.8); Monocytes % 7.9 % (1.7-12.7); NRBC # 0.04 10*3/uL; Neutrophils # 2.7 10*3/uL (1.4-7.4); Platelet Count 45 T/CUMM (130-400); Red Blood Count 2.64 MC/CUMM (3.8-5.5); Red Cell Distribution Width 19.2 % (9.3-17.3); White Blood Count 3.8 T/CUMM (4-12)
[2018-03-28 07:11] LABS: INR 1.3; PT Patient Result 13.1 SECS
[2018-03-28 07:36] LABS: Calcium 7.6 MG/DL (8.5-10.1); Osmolality,Calculated 286.3 MOS/KG (273-304)
[2018-03-28 07:37] LABS: Troponin I 0.105 NG/ML (0.00-0.045)
[2018-03-28] MEDS ORDERED: LIDOCAINE 100 MG/5 ML SYRINGE ONE (07:43)
[2018-03-28] MEDS ORDERED: PROPOFOL 200 MG/20 ML VIAL IV ONE (07:43)
[2018-03-28] MEDS ORDERED: PHENYLEPHRINE 1 MG/10 ML SYRINGE IV ONE (07:43)
[2018-03-28 08:03] LABS: Platelet Estimate Decreased
[2018-03-28] MEDS: PANTOPRAZOLE 40 MG TABLET PO SCH ×2 (08:07→20:42)
[2018-03-28] MEDS: CARVEDILOL 25 MG TABLET PO SCH ×2 (16:09→20:42)
[2018-03-28] MEDS: SEVELAMER CARBONATE 800 MG TABLET PO SCH (17:43)
[2018-03-28] MEDS: SIMVASTATIN 20 MG TABLET PO SCH (20:42)
[2018-03-28] MEDS: GABAPENTIN 100 MG CAPSULE PO SCH (20:42)
[2018-03-28] MEDS: amLODIPine 2.5 MG TABLET PO SCH (20:42)
[2018-03-29 05:16] LABS: Basophils % 0.9 % (0.0-0.8); Eosinophils # 0.2 10*3/uL (0.0-0.87); Eosinophils % 6.2 % (0.00-10.9); Hematocrit 29.6 VOL% (35.7-47.0); Hemoglobin 9.9 GM/DL (12.0-16.0); Immature Granulocytes % 0.6 %; Immature Granulocytes Absolute 0.02 #; Lymphocytes # 0.5 10*3/uL (1.4-4.0); Lymphocytes % 16.4 % (21.3-54.2); Mean Corpuscular HGB Conc 33.4 GM/DL (32-36); Mean Corpuscular Hemoglobin 32 PG (27-34); Mean Corpuscular Volume 96.4 FL (87-102); Mean Platelet Volume 11.3 FL (9.6-12.0); Monocytes # 0.3 10*3/uL (0.11-0.8); Monocytes % 9.3 % (1.7-12.7); Neutrophils # 2.2 10*3/uL (1.4-7.4); Neutrophils % 66.6 % (38.7-73.9); Red Blood Count 3.07 MC/CUMM (3.8-5.5); Red Cell Distribution Width 19.5 % (9.3-17.3); White Blood Count 3.2 T/CUMM (4-12)
[2018-03-29 05:29] LABS: Platelet Count 36 T/CUMM (130-400)
[2018-03-29 05:31] LABS: Calcium 7.8 MG/DL (8.5-10.1); Osmolality,Calculated 279.4 MOS/KG (273-304); Potassium 4.2 MMOL/L (3.5-5.1)
[2018-03-29 06:16] LABS: Band Neutrophils 10 % (0-10); Eosinophils 6 % (0-10); Lymphocytes 16 % (20-55); Platelet Estimate Decreased; Segmented Neutrophils 62 % (50-85); Total Cells Counted 100
[2018-03-29 06:17] LABS: Anisocytosis Slight; Basophilic Stippling Slight; Hypochromasia Slight; Macrocytosis Slight
[2018-03-29] MEDS: PANTOPRAZOLE 40 MG TABLET PO SCH ×2 (08:02→21:58)
[2018-03-29] MEDS: SEVELAMER CARBONATE 800 MG TABLET PO SCH ×3 (08:02→16:58)
[2018-03-29] MEDS: MULTIVITAMIN (BEROCCA) TABLET PO SCH (08:02)
[2018-03-29] MEDS: CARVEDILOL 25 MG TABLET PO SCH ×2 (08:03→21:59)
[2018-03-29 11:26] LABS: Albumin 1.7 G/DL (3.4-5.0); Bilirubin,Direct 0.78 MG/DL (0.0-0.20); Bilirubin,Indirect 0.4 MG/DL (0.0-1.0); Bilirubin,Total 1.2 MG/DL (0.2-1.0); Total Protein 6.1 G/DL (6.4-8.3)
[2018-03-29 11:33] LABS: Haptoglobin < 8.0 MG/DL (30-200)
[2018-03-29] MEDS: amLODIPine 2.5 MG TABLET PO SCH (21:58)
[2018-03-29] MEDS: GABAPENTIN 100 MG CAPSULE PO SCH (21:59)
[2018-03-29] MEDS: SIMVASTATIN 20 MG TABLET PO SCH (21:59)
[2018-03-30 08:20] LABS: Basophils % 1.2 % (0.0-0.8); Eosinophils # 0.2 10*3/uL (0.0-0.87); Eosinophils % 5.6 % (0.00-10.9); Hemoglobin 9.7 GM/DL (12.0-16.0); Immature Granulocytes % 0.3 %; Immature Granulocytes Absolute 0.01 #; Lymphocytes # 0.5 10*3/uL (1.4-4.0); Lymphocytes % 14.6 % (21.3-54.2); Mean Corpuscular HGB Conc 32.3 GM/DL (32-36); Mean Corpuscular Hemoglobin 32 PG (27-34); Mean Corpuscular Volume 99.7 FL (87-102); Mean Platelet Volume 11.9 FL (9.6-12.0); Monocytes # 0.3 10*3/uL (0.11-0.8); Monocytes % 9.9 % (1.7-12.7); Neutrophils # 2.3 10*3/uL (1.4-7.4); Neutrophils % 68.4 % (38.7-73.9); Red Blood Count 3.01 MC/CUMM (3.8-5.5); Red Cell Distribution Width 19.5 % (9.3-17.3); White Blood Count 3.4 T/CUMM (4-12)
[2018-03-30 08:22] LABS: Platelet Count 37 T/CUMM (130-400)
[2018-03-30 08:40] LABS: Calcium 7.7 MG/DL (8.5-10.1); Osmolality,Calculated 282.5 MOS/KG (273-304); Potassium 4.1 MMOL/L (3.5-5.1)
[2018-03-30 08:45] LABS: Platelet Estimate Decreased
[2018-03-30 08:46] LABS: Anisocytosis 1+
[2018-03-30] MEDS: SEVELAMER CARBONATE 800 MG TABLET PO SCH ×3 (09:06→16:11)
[2018-03-30] MEDS: PANTOPRAZOLE 40 MG TABLET PO SCH ×2 (09:07→21:13)
[2018-03-30] MEDS: MULTIVITAMIN (BEROCCA) TABLET PO SCH (09:07)
[2018-03-30] MEDS: CARVEDILOL 25 MG TABLET PO SCH ×2 (09:07→21:13)
[2018-03-30] MEDS ORDERED: SIMETHICONE CHEW 125 MG TABLET PO PRN (20:37)
[2018-03-30] MEDS: amLODIPine 2.5 MG TABLET PO SCH (21:13)
[2018-03-30] MEDS: SIMVASTATIN 20 MG TABLET PO SCH (21:13)
[2018-03-30] MEDS: GABAPENTIN 100 MG CAPSULE PO SCH (21:13)
[2018-03-31 05:18] LABS: Basophils % 0.8 % (0.0-0.8); Eosinophils # 0.2 10*3/uL (0.0-0.87); Hematocrit 29.2 VOL% (35.7-47.0); Hemoglobin 9.7 GM/DL (12.0-16.0); Immature Granulocytes % 1.6 %; Immature Granulocytes Absolute 0.08 #; Lymphocytes # 0.3 10*3/uL (1.4-4.0); Lymphocytes % 6.2 % (21.3-54.2); Mean Corpuscular HGB Conc 33.2 GM/DL (32-36); Mean Corpuscular Hemoglobin 33 PG (27-34); Mean Platelet Volume 11.7 FL (9.6-12.0); Monocytes # 0.3 10*3/uL (0.11-0.8); Monocytes % 6.6 % (1.7-12.7); Neutrophils % 80.8 % (38.7-73.9); Red Blood Count 2.98 MC/CUMM (3.8-5.5); Red Cell Distribution Width 19.5 % (9.3-17.3)
[2018-03-31 05:29] LABS: Platelet Count 30 T/CUMM (130-400)
[2018-03-31 05:53] LABS: Calcium 7.2 MG/DL (8.5-10.1); Osmolality,Calculated 284.7 MOS/KG (273-304); Potassium 4.4 MMOL/L (3.5-5.1)
[2018-03-31 06:04] LABS: Hypochromasia 1+; Ovalocytes Slight; Platelet Estimate Decreased
[2018-03-31] MEDS: SEVELAMER CARBONATE 800 MG TABLET PO SCH ×3 (09:52→18:16)
[2018-03-31] MEDS: PANTOPRAZOLE 40 MG TABLET PO SCH ×2 (09:52→21:08)
[2018-03-31] MEDS: MULTIVITAMIN (BEROCCA) TABLET PO SCH (09:52)
[2018-03-31] MEDS: CARVEDILOL 25 MG TABLET PO SCH ×2 (09:52→21:07)
[2018-03-31] MEDS: amLODIPine 2.5 MG TABLET PO SCH (21:07)
[2018-03-31] MEDS: GABAPENTIN 100 MG CAPSULE PO SCH (21:08)
[2018-03-31] MEDS: SIMVASTATIN 20 MG TABLET PO SCH (21:08)
[2018-04-01 07:40] VITALS: BP 140/64
[2018-04-01] MEDS: MULTIVITAMIN (BEROCCA) TABLET PO SCH (10:19)
[2018-04-01] MEDS: CARVEDILOL 25 MG TABLET PO SCH (10:19)
[2018-04-01] MEDS: SEVELAMER CARBONATE 800 MG TABLET PO SCH (10:19)
[2018-04-01] MEDS: PANTOPRAZOLE 40 MG TABLET PO SCH (10:19)
== END 2018-04-01 17:10 | disposition home or self-care (01) | DRG 377 ==
LOC: SUATTDRO 07:05 → N.ICU 07:05 → N.5E 03-29 15:39
PROVIDERS: ADMIT Internal Medicine; ATTEND Internal Medicine

== ENCOUNTER 2018-04-21 22:56 | Inpatient (IN) ==
[2018-04-22] MEDS ORDERED: ACETAMINOPHEN 325 MG TABLET PO PRN (01:33)
[2018-04-22] MEDS ORDERED: ONDANSETRON 4 MG/2 ML VIAL IV PRN (01:33)
[2018-04-22] MEDS ORDERED: GLUCAGON 1 MG VIAL IM PRN ×2 (01:33)
[2018-04-22] MEDS ORDERED: DEXTROSE 50% 25 GM/50 ML VIAL IV PRN ×2 (01:33)
[2018-04-22] MEDS ORDERED: SODIUM CHLORIDE 0.9% 1,000 ML IV PRN ×2 (01:33→07:14)
[2018-04-22] MEDS ORDERED: CARBOXYMETHYLCELLULOSE 1% OPH SOLN BOTH EYES PRN (01:54)
[2018-04-22] MEDS ORDERED: CHOLESTYRAMINE 4 GM PACK PO PRN (01:54)
[2018-04-22] MEDS ORDERED: LOPERAMIDE 2 MG CAPSULE PO PRN (01:54)
[2018-04-22] MEDS ORDERED: TRIAMCINOLONE 0.1% CREAM 15 GM TUBE TOP PRN (01:54)
[2018-04-22] MEDS ORDERED: diphenhydrAMINE 2% CREAM 28 GM TUBE TOP PRN (01:54)
[2018-04-22] MEDS ORDERED: ZINC OXIDE PASTE 113 GM TUBE TOP PRN (01:54)
[2018-04-22 05:26] LABS: Basophils % 0.3 % (0.0-0.8); Eosinophils # 0.1 10*3/uL (0.0-0.87); Eosinophils % 3.7 % (0.00-10.9); Immature Granulocytes % 0.6 %; Immature Granulocytes Absolute 0.02 #; Lymphocytes # 0.5 10*3/uL (1.4-4.0); Lymphocytes % 15.6 % (21.3-54.2); Mean Corpuscular HGB Conc 29.7 GM/DL (32-36); Mean Corpuscular Hemoglobin 32 PG (27-34); Mean Corpuscular Volume 108.9 FL (87-102); Mean Platelet Volume 11.8 FL (9.6-12.0); Monocytes # 0.3 10*3/uL (0.11-0.8); Monocytes % 8.9 % (1.7-12.7); NRBC # 0.02 10*3/uL; Neutrophils # 2.3 10*3/uL (1.4-7.4); Neutrophils % 70.9 % (38.7-73.9); Red Blood Count 1.58 MC/CUMM (3.8-5.5); Red Cell Distribution Width 21.3 % (9.3-17.3); White Blood Count 3.3 T/CUMM (4-12)
[2018-04-22 05:32] LABS: Hemoglobin 5.1 GM/DL (12.0-16.0)
[2018-04-22 05:33] LABS: Hematocrit 17.2 VOL% (35.7-47.0); Platelet Count 52 T/CUMM (130-400)
[2018-04-22 05:44] LABS: Hypochromasia 1+; Ovalocytes Slight; Platelet Estimate Decreased
[2018-04-22 05:58] LABS: Albumin 1.9 G/DL (3.4-5.0); Bilirubin,Total 0.8 MG/DL (0.2-1.0); Calcium 7.5 MG/DL (8.5-10.1); Potassium 4.4 MMOL/L (3.5-5.1); Total Protein 7.1 G/DL (6.4-8.3)
[2018-04-22] MEDS ORDERED: CARVEDILOL 25 MG TABLET PO SCH (08:00)
[2018-04-22] MEDS ORDERED: PANTOPRAZOLE 40 MG TABLET PO SCH (09:00)
[2018-04-22] MEDS: MULTIVITAMIN (BEROCCA) TABLET PO SCH (09:14)
[2018-04-22] MEDS: SEVELAMER CARBONATE 800 MG TABLET PO SCH ×3 (09:14→17:10)
[2018-04-22] MEDS: INSULIN REGULAR 100 UNIT/ML SUBCUT SCH ×4 (09:14→20:36)
[2018-04-22] MEDS: CARVEDILOL 12.5 MG TABLET PO SCH ×2 (09:15→17:12)
[2018-04-22] MEDS: PANTOPRAZOLE 40 MG TABLET PO SCH ×2 (09:15→20:36)
[2018-04-22] MEDS: GABAPENTIN 100 MG CAPSULE PO SCH (20:36)
[2018-04-22] MEDS: SIMVASTATIN 20 MG TABLET PO SCH (20:36)
[2018-04-22] MEDS: amLODIPine 2.5 MG TABLET PO SCH (20:36)
[2018-04-23 04:51] LABS: Basophils % 0.6 % (0.0-0.8); Eosinophils # 0.1 10*3/uL (0.0-0.87); Eosinophils % 3.8 % (0.00-10.9); Hematocrit 23.6 VOL% (35.7-47.0); Hemoglobin 7.1 GM/DL (12.0-16.0); Immature Granulocytes % 0.9 %; Immature Granulocytes Absolute 0.03 #; Lymphocytes # 0.5 10*3/uL (1.4-4.0); Lymphocytes % 14.8 % (21.3-54.2); Mean Corpuscular HGB Conc 30.1 GM/DL (32-36); Mean Corpuscular Hemoglobin 31 PG (27-34); Mean Platelet Volume 11.3 FL (9.6-12.0); Monocytes # 0.4 10*3/uL (0.11-0.8); Monocytes % 10.7 % (1.7-12.7); NRBC # 0.02 10*3/uL; Neutrophils # 2.3 10*3/uL (1.4-7.4); Neutrophils % 69.2 % (38.7-73.9); Red Blood Count 2.27 MC/CUMM (3.8-5.5); Red Cell Distribution Width 22.4 % (9.3-17.3); White Blood Count 3.4 T/CUMM (4-12)
[2018-04-23 04:52] LABS: Platelet Count 53 T/CUMM (130-400)
[2018-04-23 05:17] LABS: Calcium 7.3 MG/DL (8.5-10.1)
[2018-04-23 05:31] LABS: Hypochromasia 1+; Ovalocytes Slight; Platelet Estimate Decreased
[2018-04-23] MEDS ORDERED: ePHEDrine 50 MG/ML AMP ONE (07:34)
[2018-04-23] MEDS ORDERED: SEVOFLURANE 1 UNIT/15 MINUTE INH ONE (08:13)
[2018-04-23] MEDS ORDERED: PHENYLEPHRINE 0.5% NASAL SPRAY 15 ML BOTTLE BOTH NARES STA (08:38)
[2018-04-23] MEDS ORDERED: DEXTROSE 50% 25 GM/50 ML VIAL IV PRN (09:29)
[2018-04-23] MEDS ORDERED: GLUCAGON 1 MG VIAL IM PRN (09:29)
[2018-04-23] MEDS: SEVELAMER CARBONATE 800 MG TABLET PO SCH ×3 (09:55→17:57)
[2018-04-23] MEDS: CARVEDILOL 12.5 MG TABLET PO SCH ×2 (09:55→18:20)
[2018-04-23] MEDS: PANTOPRAZOLE 40 MG TABLET PO SCH ×2 (09:56→20:23)
[2018-04-23] MEDS ORDERED: PROPOFOL 200 MG/20 ML VIAL IV ONE (10:00)
[2018-04-23] MEDS: MULTIVITAMIN (BEROCCA) TABLET PO SCH (10:00)
[2018-04-23] MEDS ORDERED: ONDANSETRON 4 MG/2 ML VIAL ONE (10:00)
[2018-04-23] MEDS ORDERED: LIDOCAINE 100 MG/5 ML SYRINGE ONE (10:00)
[2018-04-23] MEDS ORDERED: SUCCINYLCHOLINE 200 MG/10 ML VIAL ONE (10:00)
[2018-04-23] MEDS ORDERED: SODIUM CHLORIDE 0.9% 1,000 ML IV PRN (10:50)
[2018-04-23] MEDS: INSULIN REGULAR 100 UNIT/ML SUBCUT SCH ×4 (11:18→20:28)
[2018-04-23] MEDS: ALBUTEROL 2.5 MG/3 ML NEB RESP TX SCH ×4 (12:42→23:20)
[2018-04-23] MEDS: GABAPENTIN 100 MG CAPSULE PO SCH (20:23)
[2018-04-23] MEDS: amLODIPine 2.5 MG TABLET PO SCH (20:23)
[2018-04-23] MEDS: SIMVASTATIN 20 MG TABLET PO SCH (20:26)
[2018-04-24 05:55] LABS: Basophils % 0.9 % (0.0-0.8); Eosinophils # 0.1 10*3/uL (0.0-0.87); Eosinophils % 3.3 % (0.00-10.9); Hematocrit 28.9 VOL% (35.7-47.0); Immature Granulocytes % 0.9 %; Immature Granulocytes Absolute 0.03 #; Lymphocytes # 0.5 10*3/uL (1.4-4.0); Lymphocytes % 14.8 % (21.3-54.2); Mean Corpuscular HGB Conc 30.4 GM/DL (32-36); Mean Corpuscular Hemoglobin 31 PG (27-34); Mean Corpuscular Volume 101.4 FL (87-102); Mean Platelet Volume 10.7 FL (9.6-12.0); Monocytes # 0.2 10*3/uL (0.11-0.8); Neutrophils # 2.4 10*3/uL (1.4-7.4); Neutrophils % 73.1 % (38.7-73.9); Platelet Count 49 T/CUMM (130-400); Red Cell Distribution Width 21.7 % (9.3-17.3); White Blood Count 3.3 T/CUMM (4-12)
[2018-04-24 05:56] LABS: Red Blood Count 2.85 MC/CUMM (3.8-5.5)
[2018-04-24 05:57] LABS: Hemoglobin 8.8 GM/DL (12.0-16.0)
[2018-04-24 06:09] LABS: Calcium 7.5 MG/DL (8.5-10.1); Osmolality,Calculated 292.1 MOS/KG (273-304); Potassium 4.3 MMOL/L (3.5-5.1)
[2018-04-24 06:19] LABS: Hypochromasia Slight; Platelet Estimate Decreased; Polychromasia Few
[2018-04-24] MEDS: ALBUTEROL 2.5 MG/3 ML NEB RESP TX SCH ×3 (07:00→22:41)
[2018-04-24] MEDS: INSULIN REGULAR 100 UNIT/ML SUBCUT SCH ×4 (08:20→20:17)
[2018-04-24] MEDS: SEVELAMER CARBONATE 800 MG TABLET PO SCH ×4 (08:20→16:12)
[2018-04-24] MEDS: PANTOPRAZOLE 40 MG TABLET PO SCH ×2 (08:21→20:17)
[2018-04-24] MEDS: MULTIVITAMIN (BEROCCA) TABLET PO SCH (08:21)
[2018-04-24] MEDS: CARVEDILOL 12.5 MG TABLET PO SCH ×3 (12:58→16:12)
[2018-04-24 19:01] LABS: HIT Interpretation Negative (Negative)
[2018-04-24] MEDS: SIMVASTATIN 20 MG TABLET PO SCH (20:17)
[2018-04-24] MEDS: amLODIPine 2.5 MG TABLET PO SCH (20:17)
[2018-04-24] MEDS: GABAPENTIN 100 MG CAPSULE PO SCH (20:17)
[2018-04-25] MEDS: ALBUTEROL 2.5 MG/3 ML NEB RESP TX SCH ×3 (07:19→23:59)
[2018-04-25] MEDS: SEVELAMER CARBONATE 800 MG TABLET PO SCH ×3 (07:24→16:06)
[2018-04-25] MEDS: INSULIN REGULAR 100 UNIT/ML SUBCUT SCH ×4 (07:24→20:54)
[2018-04-25] MEDS ORDERED: ceFAZolin 1,000 MG in SYRINGE 1 EACH IV ONE (08:03)
[2018-04-25] MEDS: PANTOPRAZOLE 40 MG TABLET PO SCH ×2 (08:07→20:49)
[2018-04-25] MEDS: MULTIVITAMIN (BEROCCA) TABLET PO SCH (08:07)
[2018-04-25] MEDS: CARVEDILOL 12.5 MG TABLET PO SCH ×2 (08:09→16:06)
[2018-04-25 08:41] LABS: Basophils % 0.3 % (0.0-0.8); Eosinophils # 0.1 10*3/uL (0.0-0.87); Eosinophils % 3.7 % (0.00-10.9); Hemoglobin 8.8 GM/DL (12.0-16.0); Immature Granulocytes % 0.8 %; Immature Granulocytes Absolute 0.03 #; Lymphocytes # 0.5 10*3/uL (1.4-4.0); Lymphocytes % 14.2 % (21.3-54.2); Mean Corpuscular HGB Conc 31.4 GM/DL (32-36); Mean Corpuscular Hemoglobin 32 PG (27-34); Mean Corpuscular Volume 102.6 FL (87-102); Mean Platelet Volume 11.3 FL (9.6-12.0); Monocytes # 0.4 10*3/uL (0.11-0.8); Monocytes % 11.3 % (1.7-12.7); Neutrophils # 2.7 10*3/uL (1.4-7.4); Neutrophils % 69.7 % (38.7-73.9); Platelet Count 47 T/CUMM (130-400); Red Blood Count 2.73 MC/CUMM (3.8-5.5); Red Cell Distribution Width 21.4 % (9.3-17.3); White Blood Count 3.8 T/CUMM (4-12)
[2018-04-25 08:56] LABS: INR 1.3; PT Patient Result 13.7 SECS; Partial Thromboplastin Time 29.9 SECS (0-40)
[2018-04-25] MEDS ORDERED: LIDOCAINE 1%/EPI INJ 20 ML VIAL ONE (08:57)
[2018-04-25] MEDS ORDERED: BUPIVACAINE MPF 0.25% /EPI 30 ML VIAL ONE (08:57)
[2018-04-25 09:18] LABS: Macrocytosis 1+; Platelet Estimate Decreased
[2018-04-25] MEDS ORDERED: MICROFIBRILLAR COLLAGEN POWDER 1 GM CAN TOP ONE (09:57)
[2018-04-25] MEDS ORDERED: SODIUM CHLORIDE 0.9% 250 ML IV SCH (10:00)
[2018-04-25] MEDS ORDERED: TISSUE ADHESIVE 1 EACH APPLICATOR TOP ONE (10:05)
[2018-04-25] MEDS ORDERED: fentaNYL 100 MCG/2 ML VIAL ONE (10:31)
[2018-04-25] MEDS ORDERED: PROPOFOL 200 MG/20 ML VIAL IV ONE (10:31)
[2018-04-25] MEDS: GABAPENTIN 100 MG CAPSULE PO SCH (20:49)
[2018-04-25] MEDS: amLODIPine 2.5 MG TABLET PO SCH (20:49)
[2018-04-25] MEDS: SIMVASTATIN 20 MG TABLET PO SCH (20:50)
[2018-04-26 05:24] LABS: Basophils % 0.5 % (0.0-0.8); Eosinophils # 0.2 10*3/uL (0.0-0.87); Eosinophils % 4.3 % (0.00-10.9); Hemoglobin 8.4 GM/DL (12.0-16.0); Immature Granulocytes % 0.5 %; Immature Granulocytes Absolute 0.02 #; Lymphocytes # 0.5 10*3/uL (1.4-4.0); Lymphocytes % 13.9 % (21.3-54.2); Mean Corpuscular Hemoglobin 32 PG (27-34); Mean Corpuscular Volume 104.9 FL (87-102); Mean Platelet Volume 12.2 FL (9.6-12.0); Monocytes # 0.4 10*3/uL (0.11-0.8); Neutrophils # 2.6 10*3/uL (1.4-7.4); Neutrophils % 69.8 % (38.7-73.9); Platelet Count 40 T/CUMM (130-400); Red Blood Count 2.67 MC/CUMM (3.8-5.5); Red Cell Distribution Width 21.2 % (9.3-17.3); White Blood Count 3.7 T/CUMM (4-12)
[2018-04-26 05:38] LABS: Osmolality,Calculated 293.1 MOS/KG (273-304); Potassium 4.6 MMOL/L (3.5-5.1)
[2018-04-26 06:18] LABS: Band Neutrophils 7 % (0-10); Eosinophils 5 % (0-10); Lymphocytes 18 % (20-55); Segmented Neutrophils 63 % (50-85); Total Cells Counted 100
[2018-04-26 06:19] LABS: Anisocytosis 1+; Basophilic Stippling Slight; Hypochromasia Slight; Platelet Estimate Decreased
[2018-04-26] MEDS: ALBUTEROL 2.5 MG/3 ML NEB RESP TX SCH ×2 (07:44→14:54)
[2018-04-26] MEDS: SEVELAMER CARBONATE 800 MG TABLET PO SCH ×3 (08:02→16:02)
[2018-04-26] MEDS: MULTIVITAMIN (BEROCCA) TABLET PO SCH (08:02)
[2018-04-26] MEDS: PANTOPRAZOLE 40 MG TABLET PO SCH ×2 (08:02→21:36)
[2018-04-26] MEDS: CARVEDILOL 12.5 MG TABLET PO SCH ×2 (08:02→16:02)
[2018-04-26] MEDS: INSULIN REGULAR 100 UNIT/ML SUBCUT SCH ×4 (08:02→22:44)
[2018-04-26] MEDS: SIMVASTATIN 20 MG TABLET PO SCH (21:36)
[2018-04-26] MEDS: amLODIPine 2.5 MG TABLET PO SCH (21:36)
[2018-04-26] MEDS: GABAPENTIN 100 MG CAPSULE PO SCH (21:36)
[2018-04-27] MEDS: ALBUTEROL 2.5 MG/3 ML NEB RESP TX SCH ×4 (00:08→23:30)
[2018-04-27 06:24] LABS: Basophils % 0.6 % (0.0-0.8); Eosinophils # 0.2 10*3/uL (0.0-0.87); Eosinophils % 5.4 % (0.00-10.9); Hematocrit 27.4 VOL% (35.7-47.0); Hemoglobin 8.5 GM/DL (12.0-16.0); Immature Granulocytes % 0.3 %; Immature Granulocytes Absolute 0.01 #; Lymphocytes # 0.5 10*3/uL (1.4-4.0); Lymphocytes % 13.9 % (21.3-54.2); Mean Corpuscular Hemoglobin 32 PG (27-34); Mean Corpuscular Volume 103.4 FL (87-102); Mean Platelet Volume 11.1 FL (9.6-12.0); Monocytes # 0.3 10*3/uL (0.11-0.8); Monocytes % 9.6 % (1.7-12.7); Neutrophils # 2.5 10*3/uL (1.4-7.4); Neutrophils % 70.2 % (38.7-73.9); Red Blood Count 2.65 MC/CUMM (3.8-5.5); Red Cell Distribution Width 20.5 % (9.3-17.3); White Blood Count 3.5 T/CUMM (4-12)
[2018-04-27 06:34] LABS: Platelet Count 38 T/CUMM (130-400)
[2018-04-27 06:43] LABS: Calcium 7.9 MG/DL (8.5-10.1); Osmolality,Calculated 281.4 MOS/KG (273-304); Potassium 4.1 MMOL/L (3.5-5.1)
[2018-04-27 06:53] LABS: Platelet Estimate Decreased
[2018-04-27] MEDS: INSULIN REGULAR 100 UNIT/ML SUBCUT SCH ×4 (07:15→20:37)
[2018-04-27] MEDS: CARVEDILOL 12.5 MG TABLET PO SCH ×2 (08:02→16:07)
[2018-04-27] MEDS: MULTIVITAMIN (BEROCCA) TABLET PO SCH (08:02)
[2018-04-27] MEDS: SEVELAMER CARBONATE 800 MG TABLET PO SCH ×3 (08:02→16:08)
[2018-04-27] MEDS: PANTOPRAZOLE 40 MG TABLET PO SCH ×2 (08:02→20:37)
[2018-04-27] MEDS: MUPIROCIN 2% OINT 22 GM TUBE TOP SCH ×2 (09:37→20:42)
[2018-04-27] MEDS: SIMVASTATIN 20 MG TABLET PO SCH (20:37)
[2018-04-27] MEDS: amLODIPine 2.5 MG TABLET PO SCH (20:37)
[2018-04-27] MEDS: GABAPENTIN 100 MG CAPSULE PO SCH (20:37)
[2018-04-28 05:32] LABS: Basophils % 0.7 % (0.0-0.8); Eosinophils # 0.2 10*3/uL (0.0-0.87); Eosinophils % 6.7 % (0.00-10.9); Hematocrit 27.2 VOL% (35.7-47.0); Hemoglobin 8.4 GM/DL (12.0-16.0); Immature Granulocytes % 0.7 %; Immature Granulocytes Absolute 0.02 #; Lymphocytes # 0.4 10*3/uL (1.4-4.0); Lymphocytes % 13.7 % (21.3-54.2); Mean Corpuscular HGB Conc 30.9 GM/DL (32-36); Mean Corpuscular Hemoglobin 32 PG (27-34); Mean Corpuscular Volume 104.6 FL (87-102); Mean Platelet Volume 11.8 FL (9.6-12.0); Monocytes # 0.3 10*3/uL (0.11-0.8); Neutrophils # 2.1 10*3/uL (1.4-7.4); Neutrophils % 68.2 % (38.7-73.9); Red Cell Distribution Width 20.6 % (9.3-17.3)
[2018-04-28 05:45] LABS: Platelet Count 36 T/CUMM (130-400)
[2018-04-28 05:59] LABS: Calcium 7.8 MG/DL (8.5-10.1); Osmolality,Calculated 290.1 MOS/KG (273-304); Potassium 4.7 MMOL/L (3.5-5.1)
[2018-04-28 06:07] LABS: Eosinophils 4 % (0-10); Hypochromasia 1+; Lymphocytes 6 % (20-55); Ovalocytes Slight; Platelet Estimate Decreased; Segmented Neutrophils 79 % (50-85); Total Cells Counted 100
[2018-04-28] MEDS: INSULIN REGULAR 100 UNIT/ML SUBCUT SCH ×3 (07:46→17:31)
[2018-04-28] MEDS: ALBUTEROL 2.5 MG/3 ML NEB RESP TX SCH ×2 (07:50→15:25)
[2018-04-28] MEDS: PANTOPRAZOLE 40 MG TABLET PO SCH (08:26)
[2018-04-28] MEDS: SEVELAMER CARBONATE 800 MG TABLET PO SCH ×3 (08:26→17:31)
[2018-04-28] MEDS: CARVEDILOL 12.5 MG TABLET PO SCH ×2 (08:26→18:33)
[2018-04-28] MEDS: MULTIVITAMIN (BEROCCA) TABLET PO SCH (08:26)
[2018-04-28 17:26] VITALS: BP 115/57
[2018-04-28] MEDS: MUPIROCIN 2% OINT 22 GM TUBE TOP SCH (17:31)
== END 2018-04-28 18:10 | disposition home or self-care (01) | DRG 808 ==
LOC: SUATTDRO 04-22 00:22 → N.5E 04-22 00:22
PROVIDERS: ADMIT Internal Medicine; ATTEND Internal Medicine

== ENCOUNTER 2018-05-30 12:33 | Observation (INO) ==
[2018-05-30] MEDS ORDERED: ONDANSETRON 4 MG/2 ML VIAL IV PRN (16:04)
[2018-05-30] MEDS ORDERED: PROMETHAZINE 25 MG/1 ML VIAL IM PRN (16:04)
[2018-05-30] MEDS ORDERED: VANCOMYCIN INJ 1,000 MG in SODIUM CHLORIDE 0.9% 250 ML IV STA (16:04)
[2018-05-30] MEDS ORDERED: ACETAMINOPHEN 325 MG TABLET PO PRN (16:04)
[2018-05-30] MEDS ORDERED: GLUCAGON 1 MG VIAL IM PRN (16:04)
[2018-05-30] MEDS ORDERED: DEXTROSE 50% 25 GM/50 ML VIAL IV PRN (16:04)
[2018-05-30] MEDS ORDERED: VANCOMYCIN 1,000 MG VIAL ONE (16:18)
[2018-05-30 16:25] LABS: Basophils % 0.6 % (0.0-0.8); Eosinophils # 0.2 10*3/uL (0.0-0.87); Eosinophils % 4.6 % (0.00-10.9); Hemoglobin 8.1 GM/DL (12.0-16.0); Immature Granulocytes % 0.9 %; Immature Granulocytes Absolute 0.03 #; Lymphocytes # 0.4 10*3/uL (1.4-4.0); Lymphocytes % 11.1 % (21.3-54.2); Mean Corpuscular HGB Conc 38.6 GM/DL (32-36); Mean Corpuscular Hemoglobin 44 PG (27-34); Mean Corpuscular Volume 114.1 FL (87-102); Mean Platelet Volume 12.9 FL (9.6-12.0); Monocytes # 0.3 10*3/uL (0.11-0.8); Monocytes % 9.8 % (1.7-12.7); Neutrophils # 2.4 10*3/uL (1.4-7.4); Red Blood Count 1.84 MC/CUMM (3.8-5.5); Red Cell Distribution Width 23.5 % (9.3-17.3); White Blood Count 3.3 T/CUMM (4-12)
[2018-05-30 16:48] LABS: Albumin 2.6 G/DL (3.4-5.0); Bilirubin,Total 0.9 MG/DL (0.2-1.0); Calcium 7.3 MG/DL (8.5-10.1); Osmolality,Calculated 292.3 MOS/KG (273-304); Total Protein 8.5 G/DL (6.4-8.3)
[2018-05-30 16:51] LABS: Platelet Count 29 T/CUMM (130-400)
[2018-05-30 18:04] LABS: Platelet Estimate Decreased
[2018-05-30 18:07] LABS: Anisocytosis 1+; Giant Platelets Few; Hypochromasia 1+; Ovalocytes Few
[2018-05-30] MEDS ORDERED: ALBUTEROL 2.5 MG/3 ML NEB RESP TX PRN (18:17)
[2018-05-30] MEDS: INSULIN LISPRO 100 UNIT/ML SUBCUT SCH ×2 (18:22→20:55)
[2018-05-30] MEDS: CARVEDILOL 25 MG TABLET PO SCH (20:55)
[2018-05-30] MEDS ORDERED: GABAPENTIN 100 MG CAPSULE PO SCH (21:00)
[2018-05-30] MEDS ORDERED: amLODIPine 2.5 MG TABLET PO SCH (21:00)
[2018-05-31 06:31] LABS: Basophils % 0.9 % (0.0-0.8); Eosinophils # 0.2 10*3/uL (0.0-0.87); Eosinophils % 4.7 % (0.00-10.9); Hematocrit 18.6 VOL% (35.7-47.0); Hemoglobin 7.3 GM/DL (12.0-16.0); Immature Granulocytes % 0.6 %; Immature Granulocytes Absolute 0.02 #; Lymphocytes # 0.4 10*3/uL (1.4-4.0); Lymphocytes % 11.1 % (21.3-54.2); Mean Corpuscular HGB Conc 39.2 GM/DL (32-36); Mean Corpuscular Hemoglobin 45 PG (27-34); Mean Corpuscular Volume 114.1 FL (87-102); Mean Platelet Volume 12.7 FL (9.6-12.0); Monocytes # 0.3 10*3/uL (0.11-0.8); Monocytes % 9.4 % (1.7-12.7); Neutrophils # 2.5 10*3/uL (1.4-7.4); Neutrophils % 73.3 % (38.7-73.9); Red Blood Count 1.63 MC/CUMM (3.8-5.5); Red Cell Distribution Width 22.9 % (9.3-17.3); White Blood Count 3.4 T/CUMM (4-12)
[2018-05-31 06:35] LABS: Platelet Count 27 T/CUMM (130-400)
[2018-05-31 06:55] LABS: Osmolality,Calculated 294.1 MOS/KG (273-304); Potassium 4.1 MMOL/L (3.5-5.1)
[2018-05-31 07:37] LABS: Hypochromasia 1+
[2018-05-31 07:38] LABS: Anisocytosis 1+; Macrocytosis 1+
[2018-05-31 07:39] LABS: Platelet Estimate Decreased
[2018-05-31] MEDS: INSULIN LISPRO 100 UNIT/ML SUBCUT SCH ×3 (07:54→16:57)
[2018-05-31] MEDS: CARVEDILOL 25 MG TABLET PO SCH (08:06)
[2018-05-31] MEDS ORDERED: LIDOCAINE 1% 20 ML VIAL ONE (08:27)
[2018-05-31] MEDS ORDERED: BUPIVACAINE MPF 0.25% 30 ML VIAL ONE (08:27)
[2018-05-31] MEDS ORDERED: MULTIVITAMIN (BEROCCA) TABLET PO SCH (09:00)
[2018-05-31] MEDS ORDERED: DEXTROSE 50% 25 GM/50 ML VIAL IV ONE ×2 (09:13→09:18)
[2018-05-31] MEDS ORDERED: fentaNYL 100 MCG/2 ML VIAL ONE (10:53)
[2018-05-31] MEDS ORDERED: ePHEDrine 50 MG/ML AMP ONE (10:54)
[2018-05-31] MEDS ORDERED: PROPOFOL 200 MG/20 ML VIAL IV ONE (11:11)
[2018-05-31] MEDS ORDERED: SEVOFLURANE 1 UNIT/15 MINUTE INH ONE (11:11)
[2018-05-31] MEDS ORDERED: MIDAZOLAM 2 MG/2 ML VIAL ONE (11:11)
[2018-05-31] MEDS ORDERED: ONDANSETRON 4 MG/2 ML VIAL ONE (11:11)
[2018-05-31 16:17] VITALS: BP 115/47
[2018-05-31] MEDS ORDERED: CINACALCET 30 MG TABLET PO SCH (17:00)
== END 2018-05-31 19:05 | disposition home or self-care (01) ==
LOC: N.EDINP 12:33 → N.ED 12:33 → N.2E 17:43
PROVIDERS: ADMIT Internal Medicine Geriatric Medicine; ATTEND Internal Medicine Geriatric Medicine

== ENCOUNTER 2018-06-28 05:53 | Inpatient (IN) ==
[2018-06-28 09:59] LABS: Hematocrit 20.3 VOL% (35.7-47.0)
[2018-06-28 10:33] LABS: Hemoglobin 6.3 GM/DL (12.0-16.0)
[2018-06-28] MEDS ORDERED: SODIUM CHLORIDE 0.9% 1,000 ML IV PRN ×2 (11:05→11:12)
[2018-06-28] MEDS ORDERED: DEXTROSE 50% 25 GM/50 ML SYRINGE IV PRN (14:31)
[2018-06-28] MEDS ORDERED: ZALEPLON 5 MG CAPSULE PO PRN (14:31)
[2018-06-28] MEDS ORDERED: GLUCAGON 1 MG VIAL IM PRN (14:31)
[2018-06-28] MEDS ORDERED: ONDANSETRON 4 MG/2 ML VIAL IV PRN (14:31)
[2018-06-28] MEDS: CINACALCET 30 MG TABLET PO SCH (16:48)
[2018-06-28] MEDS ORDERED: PANTOPRAZOLE 40 MG TABLET PO SCH (21:00)
[2018-06-28] MEDS: DOCUSATE SODIUM 100 MG CAPSULE PO SCH (21:32)
[2018-06-28] MEDS: CARVEDILOL 25 MG TABLET PO SCH (21:32)
[2018-06-28] MEDS: GABAPENTIN 100 MG CAPSULE PO SCH (21:32)
[2018-06-28] MEDS: SIMVASTATIN 20 MG TABLET PO SCH (21:32)
[2018-06-28] MEDS: amLODIPine 2.5 MG TABLET PO SCH (21:32)
[2018-06-28] MEDS: ACETAMINOPHEN 325 MG TABLET PO PRN (22:18)
[2018-06-29 05:45] LABS: Basophils % 0.9 % (0.0-0.8); Eosinophils # 0.2 10*3/uL (0.0-0.87); Eosinophils % 5.3 % (0.00-10.9); Hematocrit 20.9 VOL% (35.7-47.0); Hemoglobin 7.8 GM/DL (12.0-16.0); Immature Granulocytes % 0.9 %; Immature Granulocytes Absolute 0.03 #; Lymphocytes # 0.5 10*3/uL (1.4-4.0); Lymphocytes % 14.5 % (21.3-54.2); Mean Corpuscular HGB Conc 37.3 GM/DL (32-36); Mean Corpuscular Hemoglobin 42 PG (27-34); Mean Corpuscular Volume 113.6 FL (87-102); Mean Platelet Volume 12.7 FL (9.6-12.0); Monocytes # 0.4 10*3/uL (0.11-0.8); Monocytes % 10.7 % (1.7-12.7); Neutrophils # 2.3 10*3/uL (1.4-7.4); Neutrophils % 67.7 % (38.7-73.9); Red Blood Count 1.84 MC/CUMM (3.8-5.5); Red Cell Distribution Width 23.5 % (9.3-17.3); White Blood Count 3.4 T/CUMM (4-12)
[2018-06-29 05:49] LABS: Platelet Count 27 T/CUMM (130-400)
[2018-06-29 06:04] LABS: Albumin 2.3 G/DL (3.4-5.0); Calcium 7.9 MG/DL (8.5-10.1); Osmolality,Calculated 276.7 MOS/KG (273-304); Potassium 3.6 MMOL/L (3.5-5.1); Total Protein 6.7 G/DL (6.4-8.3)
[2018-06-29 06:17] LABS: Hypochromasia 1+; Macrocytosis 1+
[2018-06-29 06:18] LABS: Polychromasia Slight
[2018-06-29 06:20] LABS: Rouleau Slight
[2018-06-29 06:21] LABS: Platelet Estimate Decreased
[2018-06-29] MEDS ORDERED: NON-FORMULARY MEDICATION (Vitamin B Complex [Vitamin B Complex] 1 EACH) PO SCH (09:00)
[2018-06-29] MEDS: MULTIVITAMIN (BEROCCA) TABLET PO SCH (09:40)
[2018-06-29] MEDS: DOCUSATE SODIUM 100 MG CAPSULE PO SCH ×2 (09:40→21:02)
[2018-06-29] MEDS: CARVEDILOL 25 MG TABLET PO SCH ×2 (09:40→21:59)
[2018-06-29] MEDS ORDERED: SODIUM CHLORIDE 0.9% 1,000 ML IV PRN (11:27)
[2018-06-29] MEDS: MONTELUKAST 10 MG TABLET PO SCH (12:25)
[2018-06-29] MEDS ORDERED: DEXTROSE 50% 25 GM/50 ML VIAL IV PRN (13:19)
[2018-06-29] MEDS ORDERED: GLUCAGON 1 MG VIAL IM PRN (13:19)
[2018-06-29] MEDS: INSULIN LISPRO 100 UNIT/ML SUBCUT SCH ×2 (16:31→21:04)
[2018-06-29] MEDS: CINACALCET 30 MG TABLET PO SCH (16:32)
[2018-06-29] MEDS: GABAPENTIN 100 MG CAPSULE PO SCH (21:02)
[2018-06-29] MEDS: ACETAMINOPHEN 325 MG TABLET PO PRN (21:02)
[2018-06-29] MEDS: SIMVASTATIN 20 MG TABLET PO SCH (21:02)
[2018-06-29] MEDS: amLODIPine 2.5 MG TABLET PO SCH (21:59)
[2018-06-30 04:11] LABS: Basophils % 0.9 % (0.0-0.8); Eosinophils # 0.2 10*3/uL (0.0-0.87); Eosinophils % 5.7 % (0.00-10.9); Hematocrit 20.6 VOL% (35.7-47.0); Hemoglobin 7.7 GM/DL (12.0-16.0); Immature Granulocytes % 0.6 %; Immature Granulocytes Absolute 0.02 #; Lymphocytes # 0.6 10*3/uL (1.4-4.0); Lymphocytes % 17.1 % (21.3-54.2); Mean Corpuscular HGB Conc 37.4 GM/DL (32-36); Mean Corpuscular Hemoglobin 43 PG (27-34); Mean Corpuscular Volume 114.4 FL (87-102); Mean Platelet Volume 12.3 FL (9.6-12.0); Monocytes # 0.4 10*3/uL (0.11-0.8); Monocytes % 11.4 % (1.7-12.7); Neutrophils # 2.2 10*3/uL (1.4-7.4); Neutrophils % 64.3 % (38.7-73.9); Red Cell Distribution Width 22.3 % (9.3-17.3); White Blood Count 3.3 T/CUMM (4-12)
[2018-06-30 04:20] LABS: Platelet Count 25 T/CUMM (130-400)
[2018-06-30 04:38] LABS: Calcium 7.3 MG/DL (8.5-10.1); Osmolality,Calculated 284.5 MOS/KG (273-304); Potassium 3.7 MMOL/L (3.5-5.1)
[2018-06-30 04:45] LABS: Platelet Estimate Decreased
[2018-06-30 04:46] LABS: Polychromasia Few
[2018-06-30] MEDS: INSULIN LISPRO 100 UNIT/ML SUBCUT SCH ×4 (07:45→21:03)
[2018-06-30] MEDS: DOCUSATE SODIUM 100 MG CAPSULE PO SCH ×2 (09:03→21:04)
[2018-06-30] MEDS: MULTIVITAMIN (BEROCCA) TABLET PO SCH (09:03)
[2018-06-30] MEDS: MONTELUKAST 10 MG TABLET PO SCH (09:03)
[2018-06-30] MEDS: CARVEDILOL 25 MG TABLET PO SCH ×2 (09:06→21:04)
[2018-06-30] MEDS ORDERED: SODIUM CHLORIDE 0.9% 1,000 ML IV PRN (10:38)
[2018-06-30] MEDS: CINACALCET 30 MG TABLET PO SCH (17:51)
[2018-06-30] MEDS: SIMVASTATIN 20 MG TABLET PO SCH (21:04)
[2018-06-30] MEDS: amLODIPine 2.5 MG TABLET PO SCH (21:04)
[2018-06-30] MEDS: GABAPENTIN 100 MG CAPSULE PO SCH (21:08)
[2018-06-30] MEDS: guaiFENesin/DM ER 600-30 MG TABLET PO PRN (21:08)
[2018-07-01 04:39] LABS: Calcium 7.1 MG/DL (8.5-10.1); Osmolality,Calculated 283.4 MOS/KG (273-304); Potassium 3.7 MMOL/L (3.5-5.1)
[2018-07-01 07:02] LABS: Basophils % 0.8 % (0.0-0.8); Eosinophils # 0.2 10*3/uL (0.0-0.87); Eosinophils % 5.1 % (0.00-10.9); Hematocrit 30.1 VOL% (35.7-47.0); Hemoglobin 9.3 GM/DL (12.0-16.0); Immature Granulocytes % 0.3 %; Immature Granulocytes Absolute 0.01 #; Lymphocytes # 0.5 10*3/uL (1.4-4.0); Lymphocytes % 12.2 % (21.3-54.2); Mean Corpuscular HGB Conc 30.9 GM/DL (32-36); Mean Corpuscular Hemoglobin 33 PG (27-34); Mean Corpuscular Volume 105.2 FL (87-102); Mean Platelet Volume 13.3 FL (9.6-12.0); Monocytes # 0.5 10*3/uL (0.11-0.8); Monocytes % 12.5 % (1.7-12.7); Neutrophils # 2.7 10*3/uL (1.4-7.4); Neutrophils % 69.1 % (38.7-73.9); Red Blood Count 2.86 MC/CUMM (3.8-5.5); Red Cell Distribution Width 22.2 % (9.3-17.3); White Blood Count 3.9 T/CUMM (4-12)
[2018-07-01 07:05] LABS: Platelet Count 22 T/CUMM (130-400)
[2018-07-01 08:26] VITALS: BP 117/55
[2018-07-01] MEDS: MONTELUKAST 10 MG TABLET PO SCH (08:56)
[2018-07-01] MEDS: DOCUSATE SODIUM 100 MG CAPSULE PO SCH (08:56)
[2018-07-01] MEDS: MULTIVITAMIN (BEROCCA) TABLET PO SCH (08:56)
[2018-07-01] MEDS: CARVEDILOL 25 MG TABLET PO SCH ×2 (08:56→08:58)
[2018-07-01] MEDS: INSULIN LISPRO 100 UNIT/ML SUBCUT SCH ×2 (08:59→12:08)
[2018-07-01] MEDS: ACETAMINOPHEN 325 MG TABLET PO PRN (11:33)
[2018-07-01] MEDS: guaiFENesin/DM ER 600-30 MG TABLET PO PRN (11:33)
== END 2018-07-01 15:35 | disposition home or self-care (01) | DRG 682 ==
LOC: SUATTDRO 08:29 → N.TELEN 08:29
PROVIDERS: ADMIT Internal Medicine; ATTEND Internal Medicine

== ENCOUNTER 2018-08-24 17:04 | Inpatient (IN) ==
[2018-08-24] MEDS ORDERED: ALBUTEROL/IPRATROPIUM 3 ML NEB RESP TX STA (17:50)
[2018-08-24] MEDS ORDERED: ONDANSETRON 4 MG/2 ML VIAL IV STA (17:50)
[2018-08-24] MEDS ORDERED: methylPREDNISolone SOD SUC 125 MG/2 ML VIAL IV STA (17:50)
[2018-08-24] MEDS ORDERED: CLINDAMYCIN INJ 900 MG in PREMIX 1 EACH IV STA (17:50)
[2018-08-24 18:50] LABS: Basophils % 0.2 % (0.0-0.8); Eosinophils # 0.1 10*3/uL (0.0-0.87); Eosinophils % 0.6 % (0.00-10.9); Hematocrit 25.6 VOL% (35.7-47.0); Hemoglobin 8.1 GM/DL (12.0-16.0); Immature Granulocytes % 1.2 %; Immature Granulocytes Absolute 0.12 #; Lymphocytes # 0.4 10*3/uL (1.4-4.0); Lymphocytes % 4.2 % (21.3-54.2); Mean Corpuscular HGB Conc 31.6 GM/DL (32-36); Mean Corpuscular Hemoglobin 34 PG (27-34); Mean Corpuscular Volume 107.1 FL (87-102); Monocytes # 0.3 10*3/uL (0.11-0.8); Neutrophils # 9.1 10*3/uL (1.4-7.4); Neutrophils % 90.8 % (38.7-73.9); Red Blood Count 2.39 MC/CUMM (3.8-5.5); Red Cell Distribution Width 18.5 % (9.3-17.3)
[2018-08-24 18:53] LABS: Platelet Count 35 T/CUMM (130-400)
[2018-08-24 19:01] LABS: INR 1.6; PT Patient Result 17.6 SECS; Partial Thromboplastin Time 31.7 SECS (0-40)
[2018-08-24 19:18] LABS: Band Neutrophils 15 % (0-10); Hypochromasia 1+; Lymphocytes 6 % (20-55); Myelocytes 2 %; Segmented Neutrophils 75 % (50-85); Total Cells Counted 100
[2018-08-24 19:19] LABS: Platelet Estimate Decreased
[2018-08-24 19:22] LABS: Alanine Aminotransferase 18 U/L (13-56); Albumin 2.3 G/DL (3.4-5.0); Alkaline Phosphatase 166 U/L (45-117); Aspartate Amino Transferase 58 U/L (0-37); Blood Urea Nitrogen 45 MG/DL (7-18); Calcium 7.4 MG/DL (8.5-10.1); Glucose 82 MG/DL (74-106); Osmolality,Calculated 285.7 MOS/KG (273-304); Potassium 5.3 MMOL/L (3.5-5.1); Sodium 138 MMOL/L (136-145); Total Protein 7.4 G/DL (6.4-8.3)
[2018-08-24 19:25] LABS: Troponin I 0.481 NG/ML (0.00-0.045)
[2018-08-24] MEDS ORDERED: ONDANSETRON 4 MG/2 ML VIAL IV PRN (21:18)
[2018-08-24] MEDS ORDERED: ALBUTEROL 2.5 MG/3 ML NEB RESP TX PRN (21:26)
[2018-08-24] MEDS ORDERED: OSELTAMIVIR 75 MG CAPSULE PO SCH (21:30)
[2018-08-24] MEDS ORDERED: PROMETHAZINE PO PRN (22:19)
[2018-08-24] MEDS ORDERED: DEXTROMETHORPHAN PO PRN (22:19)
[2018-08-24] MEDS: GABAPENTIN 100 MG CAPSULE PO SCH (22:34)
[2018-08-24] MEDS: amLODIPine 2.5 MG TABLET PO SCH (22:34)
[2018-08-24] MEDS: IBUPROFEN 800 MG TABLET PO SCH (22:34)
[2018-08-24] MEDS: CARVEDILOL 25 MG TABLET PO SCH (22:34)
[2018-08-24] MEDS: SIMVASTATIN 20 MG TABLET PO SCH (22:34)
[2018-08-24] MEDS: OSELTAMIVIR 30 MG CAPSULE PO SCH (22:39)
[2018-08-24] MEDS: CEFTAROLINE 200 MG in SODIUM CHLORIDE 0.9% 100 ML IV SCH (22:39)
[2018-08-25] MEDS: ACETAMINOPHEN 325 MG TABLET PO PRN (01:37)
[2018-08-25 05:17] LABS: Basophils % 0.1 % (0.0-0.8); Hematocrit 25.3 VOL% (35.7-47.0); Hemoglobin 7.7 GM/DL (12.0-16.0); Immature Granulocytes % 7.6 %; Lymphocytes # 0.3 10*3/uL (1.4-4.0); Lymphocytes % 2.5 % (21.3-54.2); Mean Corpuscular HGB Conc 30.4 GM/DL (32-36); Mean Corpuscular Hemoglobin 33 PG (27-34); Mean Corpuscular Volume 107.2 FL (87-102); Mean Platelet Volume 12.9 FL (9.6-12.0); Monocytes # 0.3 10*3/uL (0.11-0.8); Monocytes % 2.8 % (1.7-12.7); Neutrophils # 9.2 10*3/uL (1.4-7.4); Red Blood Count 2.36 MC/CUMM (3.8-5.5); Red Cell Distribution Width 18.2 % (9.3-17.3); White Blood Count 10.5 T/CUMM (4-12)
[2018-08-25 05:37] LABS: Calcium 7.1 MG/DL (8.5-10.1); Osmolality,Calculated 293.5 MOS/KG (273-304); Platelet Count 29 T/CUMM (130-400); Potassium 4.8 MMOL/L (3.5-5.1)
[2018-08-25] MEDS: IBUPROFEN 800 MG TABLET PO SCH ×3 (05:54→21:26)
[2018-08-25 05:59] LABS: Band Neutrophils 7 % (0-10); Hypochromasia Slight; Lymphocytes 3 % (20-55); Platelet Estimate Decreased; Polychromasia Few; Segmented Neutrophils 90 % (50-85); Total Cells Counted 100
[2018-08-25 06:26] LABS: Folate 15.3 NG/ML (5.4-24.0)
[2018-08-25] MEDS ORDERED: SODIUM CHLORIDE 0.9% 1,000 ML IV PRN (08:14)
[2018-08-25] MEDS: MULTIVITAMIN (BEROCCA) TABLET PO SCH (09:48)
[2018-08-25] MEDS: CARVEDILOL 25 MG TABLET PO SCH ×2 (09:48→21:24)
[2018-08-25] MEDS: OSELTAMIVIR 30 MG CAPSULE PO SCH ×2 (09:53→21:25)
[2018-08-25] MEDS ORDERED: EPOETIN ALFA 10,000 UNIT/1 ML VIAL IV PRN (13:04)
[2018-08-25] MEDS: CLINDAMYCIN 300 MG CAPSULE PO SCH ×2 (14:48→17:06)
[2018-08-25] MEDS: CEFTAROLINE 200 MG in SODIUM CHLORIDE 0.9% 100 ML IV SCH ×2 (14:48→21:45)
[2018-08-25] MEDS: CINACALCET 30 MG TABLET PO SCH (17:06)
[2018-08-25] MEDS: amLODIPine 2.5 MG TABLET PO SCH (21:25)
[2018-08-25] MEDS: GABAPENTIN 100 MG CAPSULE PO SCH (21:25)
[2018-08-25] MEDS: SIMVASTATIN 20 MG TABLET PO SCH (21:25)
[2018-08-26] MEDS: CLINDAMYCIN 300 MG CAPSULE PO SCH ×4 (01:22→17:23)
[2018-08-26] MEDS: ACETAMINOPHEN 325 MG TABLET PO PRN (02:37)
[2018-08-26 05:14] LABS: Calcium 7.5 MG/DL (8.5-10.1); Osmolality,Calculated 285.8 MOS/KG (273-304); Potassium 4.2 MMOL/L (3.5-5.1)
[2018-08-26 05:15] LABS: Calcium 7.6 MG/DL (8.5-10.1); Potassium 4.2 MMOL/L (3.5-5.1)
[2018-08-26 05:22] LABS: Basophils % 0.3 % (0.0-0.8); Hematocrit 29.2 VOL% (35.7-47.0); Hemoglobin 9.5 GM/DL (12.0-16.0); Immature Granulocytes % 10.7 %; Immature Granulocytes Absolute 1.43 #; Lymphocytes # 0.3 10*3/uL (1.4-4.0); Lymphocytes % 2.5 % (21.3-54.2); Mean Corpuscular HGB Conc 32.5 GM/DL (32-36); Mean Corpuscular Hemoglobin 33 PG (27-34); Mean Corpuscular Volume 101.4 FL (87-102); Mean Platelet Volume 13.6 FL (9.6-12.0); Monocytes # 0.5 10*3/uL (0.11-0.8); Monocytes % 3.8 % (1.7-12.7); NRBC # 0.03 10*3/uL; Neutrophils # 11.1 10*3/uL (1.4-7.4); Neutrophils % 82.7 % (38.7-73.9); Red Blood Count 2.88 MC/CUMM (3.8-5.5); Red Cell Distribution Width 20.5 % (9.3-17.3); White Blood Count 13.4 T/CUMM (4-12)
[2018-08-26 05:28] LABS: Platelet Count 29 T/CUMM (130-400)
[2018-08-26 06:06] LABS: Band Neutrophils 1 % (0-10); Hypochromasia 1+; Lymphocytes 2 % (20-55); Microcytosis 1+; Platelet Estimate Decreased; Segmented Neutrophils 93 % (50-85); Total Cells Counted 100
[2018-08-26] MEDS: IBUPROFEN 800 MG TABLET PO SCH ×3 (07:10→16:04)
[2018-08-26] MEDS: MULTIVITAMIN (BEROCCA) TABLET PO SCH (09:19)
[2018-08-26] MEDS: CARVEDILOL 25 MG TABLET PO SCH (09:19)
[2018-08-26] MEDS: OSELTAMIVIR 30 MG CAPSULE PO SCH (09:19)
[2018-08-26] MEDS: CEFTAROLINE 200 MG in SODIUM CHLORIDE 0.9% 100 ML IV SCH (10:10)
[2018-08-26 16:15] VITALS: BP 114/55
[2018-08-26] MEDS: CINACALCET 30 MG TABLET PO SCH (16:37)
== END 2018-08-26 17:40 | disposition home or self-care (01) | DRG 602 ==
LOC: N.EDINP 17:04 → N.ED 17:04 → N.2E 21:51
PROVIDERS: ADMIT Internal Medicine; ATTEND Internal Medicine

== ENCOUNTER 2018-08-28 15:27 | Observation (INO) ==
[2018-08-28] MEDS ORDERED: ACETAMINOPHEN 325 MG TABLET PO PRN (17:36)
[2018-08-28] MEDS ORDERED: ONDANSETRON 4 MG/2 ML VIAL IV PRN (17:36)
[2018-08-28] MEDS ORDERED: DEXTROMETHORPHAN PO PRN (17:39)
[2018-08-28] MEDS ORDERED: ALBUTEROL 2.5 MG/3 ML NEB RESP TX PRN (17:39)
[2018-08-28] MEDS ORDERED: PROMETHAZINE PO PRN (17:39)
[2018-08-28] MEDS ORDERED: VANCOMYCIN INJ 1,000 MG in SODIUM CHLORIDE 0.9% 250 ML IV STA (17:40)
[2018-08-28] MEDS ORDERED: ENOXAPARIN 30 MG/0.3 ML SYRINGE SUBCUT SCH (18:00)
[2018-08-28] MEDS: IBUPROFEN 800 MG TABLET PO SCH (20:20)
[2018-08-28] MEDS: CARVEDILOL 25 MG TABLET PO SCH (20:54)
[2018-08-28] MEDS: OSELTAMIVIR 75 MG CAPSULE PO SCH (20:57)
[2018-08-28] MEDS ORDERED: SIMVASTATIN 20 MG TABLET PO SCH (21:00)
[2018-08-28] MEDS ORDERED: GABAPENTIN 100 MG CAPSULE PO SCH (21:00)
[2018-08-28] MEDS ORDERED: amLODIPine 2.5 MG TABLET PO SCH (21:00)
[2018-08-29] MEDS: IBUPROFEN 800 MG TABLET PO SCH ×3 (01:07→17:31)
[2018-08-29 05:33] LABS: Basophils % 0.4 % (0.0-0.8); Eosinophils # 0.1 10*3/uL (0.0-0.87); Eosinophils % 1.3 % (0.00-10.9); Hematocrit 29.2 VOL% (35.7-47.0); Hemoglobin 8.9 GM/DL (12.0-16.0); Immature Granulocytes % 2.1 %; Immature Granulocytes Absolute 0.17 #; Lymphocytes # 0.7 10*3/uL (1.4-4.0); Mean Corpuscular HGB Conc 30.5 GM/DL (32-36); Mean Corpuscular Hemoglobin 32 PG (27-34); Mean Platelet Volume 12.7 FL (9.6-12.0); Monocytes # 1.2 10*3/uL (0.11-0.8); Monocytes % 14.6 % (1.7-12.7); NRBC # 0.04 10*3/uL; Neutrophils % 73.6 % (38.7-73.9); Red Blood Count 2.78 MC/CUMM (3.8-5.5); Red Cell Distribution Width 18.7 % (9.3-17.3); White Blood Count 8.2 T/CUMM (4-12)
[2018-08-29 05:40] LABS: Platelet Count 31 T/CUMM (130-400)
[2018-08-29 05:52] LABS: Hypochromasia 1+; Microcytosis Slight; Ovalocytes Slight; Platelet Estimate Decreased
[2018-08-29 05:58] LABS: Calcium 7.2 MG/DL (8.5-10.1); Osmolality,Calculated 284.7 MOS/KG (273-304); Potassium 4.2 MMOL/L (3.5-5.1)
[2018-08-29] MEDS ORDERED: MULTIVITAMIN (BEROCCA) TABLET PO SCH (09:00)
[2018-08-29] MEDS ORDERED: PANTOPRAZOLE 40 MG TABLET PO SCH (09:00)
[2018-08-29] MEDS: OSELTAMIVIR 75 MG CAPSULE PO SCH (09:04)
[2018-08-29] MEDS: CARVEDILOL 25 MG TABLET PO SCH ×2 (09:05→16:25)
[2018-08-29] MEDS ORDERED: ceFAZolin 2,000 MG in SYRINGE 1 EACH IV SCH (15:00)
[2018-08-29 15:29] VITALS: BP 113/53
[2018-08-29] MEDS ORDERED: CINACALCET 30 MG TABLET PO SCH (17:00)
== END 2018-08-29 18:30 | disposition home or self-care (01) ==
LOC: EDUNIT# → EDBD → N.EDINP 15:27 → N.ED 15:27 → N.5E 18:51
PROVIDERS: ADMIT Internal Medicine; ATTEND Internal Medicine

== ENCOUNTER 2018-10-11 00:26 | Inpatient (IN) ==
[2018-10-11] MEDS ORDERED: PANTOPRAZOLE 40 MG VIAL IV STA (00:37)
[2018-10-11 01:03] LABS: Basophils % 0.2 % (0.0-0.8); Eosinophils # 0.2 10*3/uL (0.0-0.87); Eosinophils % 4.4 % (0.00-10.9); Immature Granulocytes % 0.8 %; Immature Granulocytes Absolute 0.04 #; Lymphocytes # 0.4 10*3/uL (1.4-4.0); Lymphocytes % 7.5 % (21.3-54.2); Mean Corpuscular HGB Conc 29.8 GM/DL (32-36); Mean Corpuscular Volume 110.2 FL (87-102); Monocytes % 9.4 % (1.7-12.7); Neutrophils % 77.7 % (38.7-73.9); Red Blood Count 1.37 MC/CUMM (3.8-5.5); Red Cell Distribution Width 23.9 % (9.3-17.3); White Blood Count 4.8 T/CUMM (4-12)
[2018-10-11 01:18] LABS: Albumin 2.1 G/DL (3.4-5.0); Bilirubin,Total 0.7 MG/DL (0.2-1.0); Calcium 6.3 MG/DL (8.5-10.1); Osmolality,Calculated 307.6 MOS/KG (273-304); Total Protein 5.6 G/DL (6.4-8.3)
[2018-10-11 01:19] LABS: Hematocrit 15.1 VOL% (35.7-47.0); Hemoglobin 4.5 GM/DL (12.0-16.0); Platelet Count 29 T/CUMM (130-400)
[2018-10-11] MEDS ORDERED: ACETAMINOPHEN 325 MG TABLET PO PRN (01:23)
[2018-10-11] MEDS ORDERED: SODIUM CHLORIDE 0.9% 1,000 ML IV PRN (01:23)
[2018-10-11] MEDS ORDERED: diphenhydrAMINE CAP 25 MG CAPSULE PO PRN (01:23)
[2018-10-11 01:27] LABS: INR 1.4; PT Patient Result 14.9 SECS
[2018-10-11 02:29] LABS: Anisocytosis 1+; Macrocytosis Slight; Polychromasia Slight
[2018-10-11 02:31] LABS: Basophilic Stippling Slight
[2018-10-11 02:32] LABS: Platelet Estimate Decreased
[2018-10-11] MEDS ORDERED: ONDANSETRON 4 MG/2 ML VIAL IV PRN (04:28)
[2018-10-11] MEDS ORDERED: ALBUTEROL 2.5 MG/3 ML NEB RESP TX PRN (04:28)
[2018-10-11 05:28] LABS: Hemoglobin 4.2 GM/DL (12.0-16.0)
[2018-10-11 10:11] LABS: Hemoglobin 4.1 GM/DL (12.0-16.0)
[2018-10-11 10:12] LABS: Hematocrit 13.9 VOL% (35.7-47.0)
[2018-10-11 18:53] LABS: Hemoglobin 5.8 GM/DL (12.0-16.0)
[2018-10-11] MEDS ORDERED: diphenhydrAMINE CAP 25 MG CAPSULE ONE (20:13)
[2018-10-11] MEDS: diphenhydrAMINE CAP 25 MG CAPSULE PO PRN (20:18)
[2018-10-11] MEDS: PREGABALIN 25 MG CAPSULE PO SCH (20:18)
[2018-10-11] MEDS: amLODIPine 2.5 MG TABLET PO SCH (20:18)
[2018-10-11 22:39] LABS: Hematocrit 17.1 VOL% (35.7-47.0)
[2018-10-11 22:40] LABS: Hemoglobin 5.4 GM/DL (12.0-16.0)
[2018-10-12 05:41] LABS: Basophils % 0.3 % (0.0-0.8); Eosinophils # 0.2 10*3/uL (0.0-0.87); Eosinophils % 5.9 % (0.00-10.9); Immature Granulocytes % 1.1 %; Immature Granulocytes Absolute 0.04 #; Lymphocytes # 0.5 10*3/uL (1.4-4.0); Lymphocytes % 12.6 % (21.3-54.2); Mean Corpuscular HGB Conc 30.5 GM/DL (32-36); Mean Corpuscular Volume 99.5 FL (87-102); Monocytes % 10.4 % (1.7-12.7); Neutrophils % 69.7 % (38.7-73.9); Red Blood Count 1.91 MC/CUMM (3.8-5.5); Red Cell Distribution Width 21.6 % (9.3-17.3); White Blood Count 3.6 T/CUMM (4-12)
[2018-10-12 05:51] LABS: Hemoglobin 5.8 GM/DL (12.0-16.0); Platelet Count 22 T/CUMM (130-400)
[2018-10-12 06:12] LABS: Calcium 6.2 MG/DL (8.5-10.1); Osmolality,Calculated 308.6 MOS/KG (273-304); Osmolality,Calculated 311.4 MOS/KG (273-304)
[2018-10-12] MEDS ORDERED: DOCUSATE/SENNA 50-8.6 MG TABLET PO SCH (09:00)
[2018-10-12] MEDS: LEVOTHYROXINE 50 MCG TABLET PO SCH (09:27)
[2018-10-12] MEDS: SEVELAMER CARBONATE 800 MG TABLET PO SCH ×3 (09:27→16:58)
[2018-10-12] MEDS: PREGABALIN 25 MG CAPSULE PO SCH ×2 (09:28→21:03)
[2018-10-12] MEDS: MULTIVITAMIN (BEROCCA) TABLET PO SCH (09:28)
[2018-10-12] MEDS ORDERED: cloNIDine 0.1 MG TABLET PO PRN (10:36)
[2018-10-12 11:16] LABS: Hematocrit 21.8 VOL% (35.7-47.0); Hemoglobin 6.8 GM/DL (12.0-16.0)
[2018-10-12] MEDS ORDERED: SODIUM CHLORIDE 0.9% 1,000 ML IV PRN ×2 (11:45→11:46)
[2018-10-12] MEDS: PANTOPRAZOLE 40 MG VIAL IV SCH (21:03)
[2018-10-12] MEDS: amLODIPine 2.5 MG TABLET PO SCH (21:04)
[2018-10-12] MEDS: diphenhydrAMINE CAP 25 MG CAPSULE PO PRN (21:41)
[2018-10-12 23:18] LABS: Hemoglobin 6.3 GM/DL (12.0-16.0)
[2018-10-13 05:09] LABS: Basophils % 0.2 % (0.0-0.8); Eosinophils # 0.3 10*3/uL (0.0-0.87); Eosinophils % 5.2 % (0.00-10.9); Hematocrit 22.2 VOL% (35.7-47.0); Hemoglobin 7.1 GM/DL (12.0-16.0); Immature Granulocytes Absolute 0.05 #; Lymphocytes # 0.4 10*3/uL (1.4-4.0); Lymphocytes % 8.3 % (21.3-54.2); Mean Corpuscular Volume 94.5 FL (87-102); Mean Platelet Volume 11.6 FL (9.6-12.0); Monocytes % 10.1 % (1.7-12.7); NRBC # 0.02 10*3/uL; Neutrophils % 75.2 % (38.7-73.9); Red Blood Count 2.35 MC/CUMM (3.8-5.5); Red Cell Distribution Width 19.7 % (9.3-17.3); White Blood Count 4.8 T/CUMM (4-12)
[2018-10-13 05:12] LABS: Platelet Count 35 T/CUMM (130-400)
[2018-10-13 05:29] LABS: Calcium 6.1 MG/DL (8.5-10.1); Osmolality,Calculated 312.7 MOS/KG (273-304)
[2018-10-13 06:32] LABS: Anisocytosis Slight; Eosinophils 3 % (0-10); Lymphocytes 10 % (20-55); Microcytosis Slight; Segmented Neutrophils 85 % (50-85); Total Cells Counted 100
[2018-10-13 06:34] LABS: Polychromasia Slight; Target Cells Slight
[2018-10-13 06:35] LABS: Platelet Estimate Decreased
[2018-10-13] MEDS: LEVOTHYROXINE 50 MCG TABLET PO SCH (06:44)
[2018-10-13 07:52] LABS: Hematocrit 22.6 VOL% (35.7-47.0); Hemoglobin 7.1 GM/DL (12.0-16.0)
[2018-10-13] MEDS ORDERED: MAGNESIUM SULF RIDER 4 GM in PREMIX 1 EACH IV PRN (08:28)
[2018-10-13] MEDS ORDERED: MAGNESIUM SULF RIDER 2 GM in PREMIX 1 EACH IV PRN (08:28)
[2018-10-13 08:54] LABS: % Iron Saturation 86.5 % (18-50); Albumin 1.9 G/DL (3.4-5.0); Bilirubin,Direct 0.33 MG/DL (0.0-0.20); Bilirubin,Indirect 0.6 MG/DL (0.0-1.0); Bilirubin,Total 0.9 MG/DL (0.2-1.0); Total Protein 4.9 G/DL (6.4-8.3)
[2018-10-13 09:51] LABS: Hepatitis B Core IgM Quant 0.13 Index; Hepatitis B Surface Ag Quant < 0.10 Index; Hepatitis B Surface Ag Result Negative (Negative); Hepatitis C Virus Ab Quant < 0.02 Index; Hepatitis C Virus Ab Result Negative (Negative)
[2018-10-13 10:02] LABS: INR 1.2; PT Patient Result 13.2 SECS
[2018-10-13] MEDS: PANTOPRAZOLE 40 MG VIAL IV SCH ×2 (10:06→20:15)
[2018-10-13] MEDS: MULTIVITAMIN (BEROCCA) TABLET PO SCH (10:10)
[2018-10-13] MEDS: SEVELAMER CARBONATE 800 MG TABLET PO SCH ×3 (10:10→17:57)
[2018-10-13] MEDS: PREGABALIN 25 MG CAPSULE PO SCH ×2 (10:10→20:14)
[2018-10-13] MEDS: POLYETHYLENE GLYCOL POWDER 17 GM PACK PO SCH ×3 (10:11→20:15)
[2018-10-13] MEDS ORDERED: ceFAZolin 2,000 MG in SYRINGE 1 EACH IV PRN (12:00)
[2018-10-13] MEDS: ACETAMINOPHEN 325 MG TABLET PO PRN (15:13)
[2018-10-13] MEDS ORDERED: ceFAZolin 1,000 MG VIAL IV SCH (17:16)
[2018-10-13] MEDS: amLODIPine 2.5 MG TABLET PO SCH (20:14)
[2018-10-14 04:49] LABS: Calcium 6.3 MG/DL (8.5-10.1); Osmolality,Calculated 299.8 MOS/KG (273-304)
[2018-10-14 04:51] LABS: Eosinophils # 0.3 10*3/uL (0.0-0.87); Eosinophils % 5.8 % (0.00-10.9); Hematocrit 20.1 VOL% (35.7-47.0); Immature Granulocytes % 0.5 %; Immature Granulocytes Absolute 0.02 #; Lymphocytes # 0.4 10*3/uL (1.4-4.0); Lymphocytes % 10.1 % (21.3-54.2); Mean Corpuscular HGB Conc 31.3 GM/DL (32-36); Mean Corpuscular Volume 93.9 FL (87-102); Mean Platelet Volume 13.4 FL (9.6-12.0); Monocytes % 11.1 % (1.7-12.7); Neutrophils % 72.5 % (38.7-73.9); Red Blood Count 2.14 MC/CUMM (3.8-5.5); Red Cell Distribution Width 18.6 % (9.3-17.3); White Blood Count 4.3 T/CUMM (4-12)
[2018-10-14 04:57] LABS: Hemoglobin 6.3 GM/DL (12.0-16.0); Platelet Count 12 T/CUMM (130-400)
[2018-10-14] MEDS: LEVOTHYROXINE 50 MCG TABLET PO SCH (06:14)
[2018-10-14] MEDS ORDERED: SODIUM CHLORIDE 0.9% 1,000 ML IV PRN (09:01)
[2018-10-14 10:56] LABS: Basophils % 0.2 % (0.0-0.8); Eosinophils # 0.3 10*3/uL (0.0-0.87); Eosinophils % 5.3 % (0.00-10.9); Hematocrit 18.9 VOL% (35.7-47.0); Immature Granulocytes % 0.6 %; Immature Granulocytes Absolute 0.03 #; Lymphocytes # 0.4 10*3/uL (1.4-4.0); Lymphocytes % 7.5 % (21.3-54.2); Mean Corpuscular HGB Conc 32.3 GM/DL (32-36); Mean Corpuscular Volume 94.5 FL (87-102); Mean Platelet Volume 12.7 FL (9.6-12.0); Monocytes % 7.2 % (1.7-12.7); Neutrophils % 79.2 % (38.7-73.9); White Blood Count 5.3 T/CUMM (4-12)
[2018-10-14 11:00] LABS: Hemoglobin 6.1 GM/DL (12.0-16.0); Platelet Count 15 T/CUMM (130-400)
[2018-10-14 11:19] LABS: Hypochromasia 1+; Microcytosis 1+
[2018-10-14 11:20] LABS: Anisocytosis 1+; Platelet Estimate Decreased
[2018-10-14] MEDS: PANTOPRAZOLE 40 MG VIAL IV SCH ×2 (13:39→22:35)
[2018-10-14] MEDS: PREGABALIN 25 MG CAPSULE PO SCH ×2 (13:40→22:43)
[2018-10-14] MEDS: POLYETHYLENE GLYCOL POWDER 17 GM PACK PO SCH ×3 (13:40→22:29)
[2018-10-14] MEDS: MULTIVITAMIN (BEROCCA) TABLET PO SCH (13:40)
[2018-10-14] MEDS: SEVELAMER CARBONATE 800 MG TABLET PO SCH ×3 (13:40→17:29)
[2018-10-14] MEDS: predniSONE 20 MG TABLET PO SCH (20:07)
[2018-10-14] MEDS ORDERED: IMMUNE GLOBULIN 10% 20 GM, IMMUNE GLOBULIN 10% 10 GM, IMMUNE GLOBULIN 10% 5 GM in PREMI... IV ONE (21:00)
[2018-10-14] MEDS: amLODIPine 2.5 MG TABLET PO SCH (22:35)
[2018-10-14 23:31] LABS: Basophils % 0.2 % (0.0-0.8); Eosinophils # 0.2 10*3/uL (0.0-0.87); Eosinophils % 4.4 % (0.00-10.9); Immature Granulocytes % 0.7 %; Immature Granulocytes Absolute 0.03 #; Lymphocytes # 0.3 10*3/uL (1.4-4.0); Lymphocytes % 7.5 % (21.3-54.2); Mean Corpuscular HGB Conc 30.7 GM/DL (32-36); Mean Corpuscular Volume 96.2 FL (87-102); Mean Platelet Volume 12.8 FL (9.6-12.0); Monocytes % 6.4 % (1.7-12.7); Neutrophils % 80.8 % (38.7-73.9); Red Blood Count 1.59 MC/CUMM (3.8-5.5); Red Cell Distribution Width 19.2 % (9.3-17.3); White Blood Count 4.5 T/CUMM (4-12)
[2018-10-14 23:41] LABS: Hematocrit 15.3 VOL% (35.7-47.0); Hemoglobin 4.7 GM/DL (12.0-16.0)
[2018-10-14 23:42] LABS: Platelet Count 13 T/CUMM (130-400)
[2018-10-15] MEDS ORDERED: SODIUM CHLORIDE 0.9% 1,000 ML IV PRN ×3 (00:01→08:46)
[2018-10-15 00:50] LABS: Anisocytosis 1+; Eosinophils 5 % (0-10); Hypochromasia 1+; Lymphocytes 10 % (20-55); Platelet Estimate Decreased; Segmented Neutrophils 80 % (50-85); Spherocytes Few; Total Cells Counted 100
[2018-10-15 00:51] LABS: Macrocytosis Slight; Microcytosis 1+; Ovalocytes Few; Target Cells Slight
[2018-10-15 01:11] LABS: Polychromasia Few
[2018-10-15 06:13] LABS: Eosinophils % 0.2 % (0.00-10.9); Immature Granulocytes % 4.6 %; Immature Granulocytes Absolute 0.24 #; Lymphocytes # 0.2 10*3/uL (1.4-4.0); Mean Corpuscular HGB Conc 31.6 GM/DL (32-36); Mean Corpuscular Volume 95.1 FL (87-102); Mean Platelet Volume 11.5 FL (9.6-12.0); NRBC # 0.02 10*3/uL; Neutrophils % 90.2 % (38.7-73.9); Red Blood Count 1.83 MC/CUMM (3.8-5.5); Red Cell Distribution Width 17.9 % (9.3-17.3); White Blood Count 5.2 T/CUMM (4-12)
[2018-10-15 06:24] LABS: Hemoglobin 5.5 GM/DL (12.0-16.0)
[2018-10-15 06:25] LABS: Hematocrit 17.4 VOL% (35.7-47.0); Platelet Count 33 T/CUMM (130-400)
[2018-10-15] MEDS: LEVOTHYROXINE 50 MCG TABLET PO SCH (06:40)
[2018-10-15] MEDS ORDERED: MAGNESIUM CITRATE 300 ML BOTTLE PO ONE (06:59)
[2018-10-15 07:00] LABS: Lymphocytes 4 % (20-55); Nucleated Red Blood Cells 2 (0-5); Platelet Estimate Decreased; Segmented Neutrophils 96 % (50-85); Total Cells Counted 100
[2018-10-15 07:01] LABS: Hypochromasia 1+; Microcytosis 1+; Ovalocytes Slight
[2018-10-15] MEDS ORDERED: TRANEXAMIC ACID 1,000 MG in SODIUM CHLORIDE 0.9% 100 ML IV ONE (08:38)
[2018-10-15] MEDS: SEVELAMER CARBONATE 800 MG TABLET PO SCH ×2 (08:44→12:33)
[2018-10-15] MEDS ORDERED: IMMUNE GLOBULIN 10% 20 GM, IMMUNE GLOBULIN 10% 10 GM, IMMUNE GLOBULIN 10% 5 GM in PREMI... IV ONE (09:30)
[2018-10-15 09:33] LABS: INR 1.2; PT Patient Result 12.9 SECS
[2018-10-15] MEDS: PANTOPRAZOLE 40 MG VIAL IV SCH ×2 (12:33→22:17)
[2018-10-15] MEDS: predniSONE 20 MG TABLET PO SCH (12:33)
[2018-10-15] MEDS: MULTIVITAMIN (BEROCCA) TABLET PO SCH (12:33)
[2018-10-15] MEDS: POLYETHYLENE GLYCOL POWDER 17 GM PACK PO SCH ×2 (12:34→14:24)
[2018-10-15] MEDS: PREGABALIN 25 MG CAPSULE PO SCH (14:22)
[2018-10-15] MEDS ORDERED: EPINEPHrine 1 MG/10 ML SYRINGE IV ONE (15:51)
[2018-10-15] MEDS ORDERED: ATROPINE 1 MG/10 ML SYRINGE IV ONE (15:55)
[2018-10-15] MEDS ORDERED: SODIUM BICARBONATE 50 MEQ/50 ML SYRINGE IV ONE (15:58)
[2018-10-15] MEDS ORDERED: ETOMIDATE 20 MG/10 ML VIAL IV ONE ×2 (15:58→19:37)
[2018-10-15] MEDS ORDERED: NOREPINEPHRINE 4 MG/4 ML VIAL IV ONE (16:01)
[2018-10-15 16:47] LABS: ABG Base Excess -1.7 MMOL/L (-2.5-2.5); ABG PCO2 52.9 MM HG (35-48); ABG PH 7.281 (7.35-7.45); ABG TCO2 24.3 MMOL/L (23-27); Glucose Heart Surgery 199 MG/DL (74-106); Potassium Heart/CVR 4.2 MMOL/L (3.5-5.1)
[2018-10-15 16:50] LABS: Hematocrit Heart Surgery 16.4 PERCENT (37-47); Hemoglobin Heart Surgery 5.2 G/DL (12.0-16.0)
[2018-10-15] MEDS ORDERED: ROCURONIUM 100 MG/10 ML VIAL IV ONE (19:38)
[2018-10-15] MEDS: PROPOFOL 1,000 MG/100 ML BOTTLE IV SCH (19:38)
[2018-10-15] MEDS: LORazepam 2 MG/1 ML VIAL IV PRN (22:17)
[2018-10-16] MEDS: PROPOFOL 1,000 MG/100 ML BOTTLE IV SCH ×4 (04:31→21:08)
[2018-10-16 04:50] LABS: ABG Base Excess 1.4 MMOL/L (-2.5-2.5); ABG HCO3 25.5 MMOL/L (20-26); ABG Oxygen Saturation 78.6 % (95-100); ABG PCO2 43.3 MM HG (35-48); ABG PH 7.393 (7.35-7.45); ABG PO2 42.6 MM HG (80-95); ABG TCO2 25.6 MMOL/L (23-27); Allen Test Positive; Pt O2 Delivery Device Ventilator
[2018-10-16 06:13] LABS: Immature Granulocytes % 1.1 %; Lymphocytes # 0.4 10*3/uL (1.4-4.0); Lymphocytes % 4.1 % (21.3-54.2); Mean Corpuscular HGB Conc 32.1 GM/DL (32-36); Mean Corpuscular Volume 90.2 FL (87-102); Monocytes % 5.1 % (1.7-12.7); NRBC # 0.02 10*3/uL; Neutrophils % 89.7 % (38.7-73.9); Red Blood Count 1.73 MC/CUMM (3.8-5.5)
[2018-10-16 06:16] LABS: Hematocrit 15.6 VOL% (35.7-47.0); Platelet Count 11 T/CUMM (130-400)
[2018-10-16] MEDS: LEVOTHYROXINE 100 MCG VIAL IV SCH (06:22)
[2018-10-16 06:44] LABS: Anisocytosis 1+; Hypochromasia 1+; Lymphocytes 2 % (20-55); Microcytosis 1+; Segmented Neutrophils 95 % (50-85); Target Cells Slight; Total Cells Counted 100
[2018-10-16 06:45] LABS: Platelet Estimate Decreased
[2018-10-16] MEDS ORDERED: SODIUM CHLORIDE 0.9% 1,000 ML IV PRN (07:31)
[2018-10-16] MEDS ORDERED: DESMOPRESSIN 4 MCG/1 ML AMP IV ONE (07:53)
[2018-10-16] MEDS ORDERED: TRANEXAMIC ACID 1,000 MG in SODIUM CHLORIDE 0.9% 100 ML IV ONE ×2 (08:30→11:00)
[2018-10-16] MEDS ORDERED: DESMOPRESSIN INJ 20 MCG in SODIUM CHLORIDE 0.9% 50 ML IV ONE (08:30)
[2018-10-16] MEDS ORDERED: DEXAMETHASONE 10 MG/1 ML VIAL IV SCH (09:00)
[2018-10-16] MEDS ORDERED: GLUCAGON 1 MG VIAL IM PRN (09:09)
[2018-10-16] MEDS ORDERED: DEXTROSE 50% 25 GM/50 ML SYRINGE IV PRN (09:09)
[2018-10-16 09:15] LABS: Hematocrit 23.5 VOL% (35.7-47.0); Immature Granulocytes % 0.8 %; Immature Granulocytes Absolute 0.09 #; Lymphocytes # 0.4 10*3/uL (1.4-4.0); Lymphocytes % 4.1 % (21.3-54.2); Mean Corpuscular HGB Conc 32.3 GM/DL (32-36); Mean Corpuscular Volume 88.3 FL (87-102); Monocytes % 4.7 % (1.7-12.7); NRBC # 0.03 10*3/uL; Neutrophils % 90.4 % (38.7-73.9); Red Cell Distribution Width 18.6 % (9.3-17.3); White Blood Count 10.8 T/CUMM (4-12)
[2018-10-16 09:23] LABS: INR 1.2; PT Patient Result 13.3 SECS; Partial Thromboplastin Time 28.9 SECS (0-40)
[2018-10-16] MEDS: PANTOPRAZOLE 40 MG VIAL IV SCH ×2 (09:35→21:25)
[2018-10-16] MEDS: LORazepam 2 MG/1 ML VIAL IV PRN (09:45)
[2018-10-16] MEDS ORDERED: IMMUNE GLOBULIN 10% 20 GM, IMMUNE GLOBULIN 10% 10 GM, IMMUNE GLOBULIN 10% 5 GM in PREMI... IV ONE (10:00)
[2018-10-16 10:13] LABS: Hemoglobin 7.6 GM/DL (12.0-16.0); Platelet Count 10 T/CUMM (130-400); Red Blood Count 2.66 MC/CUMM (3.8-5.5)
[2018-10-16 10:23] LABS: Hypochromasia 1+; Lymphocytes 3 % (20-55); Platelet Estimate Decreased; Segmented Neutrophils 93 % (50-85); Total Cells Counted 100
[2018-10-16 10:24] LABS: Microcytosis 1+
[2018-10-16] MEDS: DEXAMETHASONE INJ 40 MG in SODIUM CHLORIDE 0.9% 50 ML IV SCH (10:28)
[2018-10-16] MEDS: INSULIN REGULAR 100 UNIT/ML SUBCUT SCH ×2 (12:04→17:58)
[2018-10-16] MEDS ORDERED: diphenhydrAMINE 50 MG/1 ML VIAL IV ONE (13:00)
[2018-10-16] MEDS ORDERED: RITUXIMAB IV ONE (13:00)
[2018-10-16] MEDS ORDERED: ACETAMINOPHEN 325 MG/10.15 ML UDCUP PO ONE (13:00)
[2018-10-16] MEDS ORDERED: SODIUM CHLORIDE 0.9% IV ONE (13:00)
[2018-10-16] MEDS ORDERED: ACETAMINOPHEN 650 MG SUPP RECTAL ONE (13:29)
[2018-10-16 20:47] LABS: Hematocrit 22.9 VOL% (35.7-47.0); Hemoglobin 7.2 GM/DL (12.0-16.0); Immature Granulocytes % 1.2 %; Lymphocytes # 0.3 10*3/uL (1.4-4.0); Lymphocytes % 3.2 % (21.3-54.2); Mean Corpuscular HGB Conc 31.4 GM/DL (32-36); Mean Corpuscular Volume 88.8 FL (87-102); Mean Platelet Volume 11.1 FL (9.6-12.0); Monocytes % 1.3 % (1.7-12.7); NRBC # 0.04 10*3/uL; Neutrophils % 94.3 % (38.7-73.9); Red Blood Count 2.58 MC/CUMM (3.8-5.5); Red Cell Distribution Width 19.4 % (9.3-17.3); White Blood Count 8.2 T/CUMM (4-12)
[2018-10-16 20:50] LABS: Platelet Count 35 T/CUMM (130-400)
[2018-10-16 21:14] LABS: Lymphocytes 2 % (20-55); Segmented Neutrophils 97 % (50-85)
[2018-10-16 21:15] LABS: Hypochromasia 1+; Platelet Estimate Decreased; Polychromasia Few
[2018-10-16 21:16] LABS: Total Cells Counted 100
[2018-10-17] MEDS: INSULIN REGULAR 100 UNIT/ML SUBCUT SCH ×4 (00:51→18:21)
[2018-10-17] MEDS ORDERED: SODIUM CHLORIDE 0.9% 1,000 ML IV PRN (03:02)
[2018-10-17] MEDS: PROPOFOL 1,000 MG/100 ML BOTTLE IV SCH ×4 (03:19→21:48)
[2018-10-17 04:11] LABS: Allen Test Positive; Pt O2 Delivery Device Ventilator
[2018-10-17 04:12] LABS: ABG Base Excess -0.2 MMOL/L (-2.5-2.5); ABG HCO3 23.5 MMOL/L (20-26); ABG Oxygen Saturation 97.5 % (95-100); ABG PCO2 33.9 MM HG (35-48); ABG PH 7.458 (7.35-7.45); ABG PO2 104.2 MM HG (80-95); ABG TCO2 24.5 MMOL/L (23-27)
[2018-10-17 05:26] LABS: Hematocrit 23.5 VOL% (35.7-47.0); Hemoglobin 7.6 GM/DL (12.0-16.0); Immature Granulocytes Absolute 0.06 #; Lymphocytes # 0.2 10*3/uL (1.4-4.0); Lymphocytes % 3.2 % (21.3-54.2); Mean Corpuscular HGB Conc 32.3 GM/DL (32-36); Mean Platelet Volume 11.4 FL (9.6-12.0); Monocytes % 3.7 % (1.7-12.7); NRBC # 0.02 10*3/uL; Neutrophils % 92.1 % (38.7-73.9); Red Blood Count 2.64 MC/CUMM (3.8-5.5); Red Cell Distribution Width 20.1 % (9.3-17.3)
[2018-10-17 05:29] LABS: INR 1.1; PT Patient Result 12.4 SECS; Partial Thromboplastin Time 27.1 SECS (0-40); Platelet Count 55 T/CUMM (130-400)
[2018-10-17 05:42] LABS: Prealbumin 14.8 MG/DL (20-40)
[2018-10-17 05:44] LABS: Albumin 2.1 G/DL (3.4-5.0); Bilirubin,Total 0.8 MG/DL (0.2-1.0); Calcium 6.4 MG/DL (8.5-10.1); Osmolality,Calculated 304.3 MOS/KG (273-304); Total Protein 5.5 G/DL (6.4-8.3)
[2018-10-17] MEDS: LEVOTHYROXINE 100 MCG VIAL IV SCH (05:49)
[2018-10-17 06:00] LABS: Anisocytosis 1+; Band Neutrophils 3 % (0-10); Lymphocytes 3 % (20-55); Macrocytosis 1+; Platelet Estimate Decreased; Segmented Neutrophils 92 % (50-85); Total Cells Counted 100
[2018-10-17] MEDS ORDERED: DESMOPRESSIN INJ 20 MCG in SODIUM CHLORIDE 0.9% 50 ML IV SCH (08:00)
[2018-10-17] MEDS ORDERED: TRANEXAMIC ACID 1,000 MG in SODIUM CHLORIDE 0.9% 100 ML IV ONE (09:00)
[2018-10-17] MEDS: PANTOPRAZOLE 40 MG VIAL IV SCH ×2 (09:48→20:51)
[2018-10-17] MEDS: DEXAMETHASONE INJ 40 MG in SODIUM CHLORIDE 0.9% 50 ML IV SCH (09:49)
[2018-10-17] MEDS ORDERED: IMMUNE GLOBULIN 10% 20 GM, IMMUNE GLOBULIN 10% 10 GM, IMMUNE GLOBULIN 10% 5 GM in PREMI... IV ONE (10:00)
[2018-10-17] MEDS: ceFAZolin 2,000 MG in SYRINGE 1 EACH IV SCH (14:21)
[2018-10-17] MEDS: DESMOPRESSIN INJ 20 MCG in SODIUM CHLORIDE 0.9% 50 ML IV SCH (14:21)
[2018-10-17] MEDS: cloNIDine 0.3 MG/24 HR PATCH TRANSDERM SCH (18:17)
[2018-10-17] MEDS: LORazepam 2 MG/1 ML VIAL IV PRN (20:49)
[2018-10-18] MEDS: INSULIN REGULAR 100 UNIT/ML SUBCUT SCH ×4 (01:46→18:51)
[2018-10-18] MEDS: PROPOFOL 1,000 MG/100 ML BOTTLE IV SCH ×5 (02:09→21:55)
[2018-10-18 03:36] LABS: ABG Base Excess 4.2 MMOL/L (-2.5-2.5); ABG HCO3 28.2 MMOL/L (20-26); ABG Oxygen Saturation 99.8 % (95-100); ABG PCO2 25.6 MM HG (35-48); ABG TCO2 22.8 MMOL/L (23-27); Allen Test Positive; Pt O2 Delivery Device Ventilator
[2018-10-18 04:02] LABS: ABG PH 7.599 (7.35-7.45)
[2018-10-18 04:09] LABS: Hematocrit 29.3 VOL% (35.7-47.0); Hemoglobin 9.8 GM/DL (12.0-16.0); Immature Granulocytes % 1.1 %; Immature Granulocytes Absolute 0.06 #; Lymphocytes # 0.2 10*3/uL (1.4-4.0); Lymphocytes % 3.2 % (21.3-54.2); Mean Corpuscular HGB Conc 33.4 GM/DL (32-36); Mean Corpuscular Volume 88.5 FL (87-102); Mean Platelet Volume 13.1 FL (9.6-12.0); Monocytes % 7.5 % (1.7-12.7); NRBC # 0.02 10*3/uL; Neutrophils % 88.2 % (38.7-73.9); Red Blood Count 3.31 MC/CUMM (3.8-5.5); Red Cell Distribution Width 18.9 % (9.3-17.3); White Blood Count 5.6 T/CUMM (4-12)
[2018-10-18 04:14] LABS: INR 1.2; PT Patient Result 13.3 SECS; Partial Thromboplastin Time 27.5 SECS (0-40)
[2018-10-18 04:18] LABS: Platelet Count 11 T/CUMM (130-400)
[2018-10-18 04:47] LABS: Calcium 6.5 MG/DL (8.5-10.1); Osmolality,Calculated 286.8 MOS/KG (273-304)
[2018-10-18 04:54] LABS: Band Neutrophils 1 % (0-10); Lymphocytes 4 % (20-55); Myelocytes 1 %; Segmented Neutrophils 89 % (50-85)
[2018-10-18 04:55] LABS: Platelet Estimate Decreased
[2018-10-18 06:00] LABS: Hypochromasia Slight; Polychromasia Few
[2018-10-18 06:02] LABS: Total Cells Counted 100
[2018-10-18] MEDS: LEVOTHYROXINE 100 MCG VIAL IV SCH (06:23)
[2018-10-18] MEDS ORDERED: TRANEXAMIC ACID 1,000 MG in SODIUM CHLORIDE 0.9% 100 ML IV ONE (09:30)
[2018-10-18] MEDS: PANTOPRAZOLE 40 MG VIAL IV SCH ×2 (09:33→21:53)
[2018-10-18] MEDS: DEXAMETHASONE INJ 40 MG in SODIUM CHLORIDE 0.9% 50 ML IV SCH (09:33)
[2018-10-18] MEDS ORDERED: IMMUNE GLOBULIN 10% 20 GM, IMMUNE GLOBULIN 10% 10 GM in PREMIX 1 EACH IV ONE (10:00)
[2018-10-18] MEDS: DESMOPRESSIN INJ 20 MCG in SODIUM CHLORIDE 0.9% 50 ML IV SCH (10:06)
[2018-10-19] MEDS: INSULIN REGULAR 100 UNIT/ML SUBCUT SCH ×5 (00:54→23:57)
[2018-10-19 04:00] LABS: Allen Test Positive; Pt O2 Delivery Device Ventilator
[2018-10-19 04:01] LABS: ABG Base Excess 0.6 MMOL/L (-2.5-2.5); ABG Oxygen Saturation 99.8 % (95-100); ABG PCO2 35.4 MM HG (35-48); ABG PH 7.446 (7.35-7.45); ABG TCO2 22.1 MMOL/L (23-27)
[2018-10-19 04:28] LABS: Hematocrit 29.5 VOL% (35.7-47.0); Hemoglobin 9.4 GM/DL (12.0-16.0); Immature Granulocytes % 1.2 %; Immature Granulocytes Absolute 0.06 #; Lymphocytes # 0.2 10*3/uL (1.4-4.0); Lymphocytes % 3.3 % (21.3-54.2); Mean Corpuscular HGB Conc 31.9 GM/DL (32-36); Mean Corpuscular Volume 92.2 FL (87-102); Mean Platelet Volume 10.8 FL (9.6-12.0); Monocytes % 7.6 % (1.7-12.7); NRBC # 0.03 10*3/uL; Neutrophils % 87.9 % (38.7-73.9); Red Cell Distribution Width 19.8 % (9.3-17.3); White Blood Count 4.9 T/CUMM (4-12)
[2018-10-19 04:35] LABS: INR 1.3; PT Patient Result 13.8 SECS; Partial Thromboplastin Time 27.4 SECS (0-40)
[2018-10-19] MEDS: PROPOFOL 1,000 MG/100 ML BOTTLE IV SCH (04:36)
[2018-10-19 04:39] LABS: Calcium 6.3 MG/DL (8.5-10.1)
[2018-10-19 04:43] LABS: Platelet Count 15 T/CUMM (130-400)
[2018-10-19 05:19] LABS: Hypochromasia 1+; Lymphocytes 2 % (20-55); Nucleated Red Blood Cells 1 (0-5); Segmented Neutrophils 91 % (50-85); Total Cells Counted 100
[2018-10-19 05:20] LABS: Anisocytosis 1+; Microcytosis 1+; Platelet Estimate Decreased
[2018-10-19] MEDS: hydrALAZINE 20 MG/1 ML VIAL IV PRN (06:00)
[2018-10-19] MEDS: LEVOTHYROXINE 100 MCG VIAL IV SCH (06:06)
[2018-10-19] MEDS ORDERED: CALCIUM GLUCONATE 3,000 MG in SODIUM CHLORIDE 0.9% 100 ML IV ONE (08:00)
[2018-10-19] MEDS: DESMOPRESSIN INJ 20 MCG in SODIUM CHLORIDE 0.9% 50 ML IV SCH (09:35)
[2018-10-19] MEDS: PANTOPRAZOLE 40 MG VIAL IV SCH ×2 (09:38→22:25)
[2018-10-19] MEDS: DEXAMETHASONE INJ 40 MG in SODIUM CHLORIDE 0.9% 50 ML IV SCH (10:31)
[2018-10-19] MEDS ORDERED: TRANEXAMIC ACID 1,000 MG in SODIUM CHLORIDE 0.9% 100 ML IV ONE (12:00)
[2018-10-20 04:44] LABS: Hematocrit 30.9 VOL% (35.7-47.0); Hemoglobin 9.4 GM/DL (12.0-16.0); Immature Granulocytes % 1.4 %; Immature Granulocytes Absolute 0.14 #; Lymphocytes # 0.1 10*3/uL (1.4-4.0); Lymphocytes % 0.9 % (21.3-54.2); Mean Corpuscular HGB Conc 30.4 GM/DL (32-36); Mean Corpuscular Volume 96.3 FL (87-102); Monocytes % 2.1 % (1.7-12.7); NRBC # 0.02 10*3/uL; Neutrophils % 95.6 % (38.7-73.9); Red Blood Count 3.21 MC/CUMM (3.8-5.5); Red Cell Distribution Width 20.6 % (9.3-17.3)
[2018-10-20 04:47] LABS: Platelet Count 9 T/CUMM (130-400)
[2018-10-20 05:09] LABS: Calcium 6.4 MG/DL (8.5-10.1)
[2018-10-20] MEDS: INSULIN REGULAR 100 UNIT/ML SUBCUT SCH ×3 (05:50→18:25)
[2018-10-20 05:56] LABS: Band Neutrophils 2 % (0-10); Hypochromasia 2+; Nucleated Red Blood Cells 1 (0-5); Platelet Estimate Decreased; Segmented Neutrophils 97 % (50-85); Total Cells Counted 100
[2018-10-20] MEDS: LEVOTHYROXINE 100 MCG VIAL IV SCH (06:02)
[2018-10-20] MEDS: DEXAMETHASONE INJ 40 MG in SODIUM CHLORIDE 0.9% 50 ML IV SCH (08:09)
[2018-10-20] MEDS: PANTOPRAZOLE 40 MG VIAL IV SCH ×2 (08:12→20:22)
[2018-10-20] MEDS ORDERED: TRANEXAMIC ACID 1,000 MG in SODIUM CHLORIDE 0.9% 100 ML IV ONE (09:30)
[2018-10-20] MEDS: DESMOPRESSIN INJ 20 MCG in SODIUM CHLORIDE 0.9% 50 ML IV SCH (09:35)
[2018-10-20] MEDS: ceFAZolin 2,000 MG in SYRINGE 1 EACH IV SCH (14:30)
[2018-10-20] MEDS: SEVELAMER CARBONATE 800 MG TABLET PO SCH (17:16)
[2018-10-20] MEDS: hydrALAZINE 20 MG/1 ML VIAL IV PRN (21:04)
[2018-10-20] MEDS: ACETAMINOPHEN 325 MG TABLET PO PRN (21:30)
[2018-10-21] MEDS: INSULIN REGULAR 100 UNIT/ML SUBCUT SCH ×5 (00:05→23:46)
[2018-10-21 04:30] LABS: Hematocrit 31.8 VOL% (35.7-47.0); Hemoglobin 9.9 GM/DL (12.0-16.0); Immature Granulocytes Absolute 0.06 #; Lymphocytes # 0.1 10*3/uL (1.4-4.0); Lymphocytes % 1.7 % (21.3-54.2); Mean Corpuscular HGB Conc 31.1 GM/DL (32-36); Mean Corpuscular Volume 96.1 FL (87-102); Monocytes % 4.5 % (1.7-12.7); Neutrophils % 92.8 % (38.7-73.9); Red Blood Count 3.31 MC/CUMM (3.8-5.5); Red Cell Distribution Width 20.6 % (9.3-17.3); White Blood Count 5.7 T/CUMM (4-12)
[2018-10-21 04:41] LABS: Platelet Count 7 T/CUMM (130-400)
[2018-10-21 05:05] LABS: Alanine Aminotransferase < 6 U/L (13-56); Albumin 2.3 G/DL (3.4-5.0); Alkaline Phosphatase 97 U/L (45-117); Aspartate Amino Transferase 26 U/L (0-37); Blood Urea Nitrogen 58 MG/DL (7-18); Calcium 6.9 MG/DL (8.5-10.1); Glucose 132 MG/DL (74-106); Total Protein 6.8 G/DL (6.4-8.3)
[2018-10-21 05:44] LABS: Lymphocytes 2 % (20-55); Platelet Estimate Decreased; Polychromasia Few; Segmented Neutrophils 96 % (50-85); Total Cells Counted 100
[2018-10-21 05:45] LABS: Hypochromasia Slight
[2018-10-21] MEDS: LEVOTHYROXINE 100 MCG VIAL IV SCH (06:10)
[2018-10-21] MEDS: PANTOPRAZOLE 40 MG VIAL IV SCH ×2 (08:56→21:30)
[2018-10-21] MEDS: SEVELAMER CARBONATE 800 MG TABLET PO SCH ×3 (08:56→17:46)
[2018-10-21] MEDS: DEXAMETHASONE INJ 40 MG in SODIUM CHLORIDE 0.9% 50 ML IV SCH (08:56)
[2018-10-21] MEDS: DESMOPRESSIN INJ 20 MCG in SODIUM CHLORIDE 0.9% 50 ML IV SCH (09:04)
[2018-10-21] MEDS ORDERED: TRANEXAMIC ACID 1,000 MG in SODIUM CHLORIDE 0.9% 100 ML IV ONE (10:00)
[2018-10-21] MEDS ORDERED: HEPARIN 5,000 UNIT/1 ML VIAL ONE (13:49)
[2018-10-21] MEDS: hydrALAZINE 20 MG/1 ML VIAL IV PRN (14:37)
[2018-10-22 04:39] LABS: Basophils % 0.2 % (0.0-0.8); Hematocrit 32.2 VOL% (35.7-47.0); Hemoglobin 9.9 GM/DL (12.0-16.0); Immature Granulocytes Absolute 0.13 #; Lymphocytes # 0.1 10*3/uL (1.4-4.0); Lymphocytes % 0.9 % (21.3-54.2); Mean Corpuscular HGB Conc 30.7 GM/DL (32-36); Mean Corpuscular Volume 97.9 FL (87-102); Monocytes % 3.6 % (1.7-12.7); NRBC # 0.02 10*3/uL; Neutrophils % 93.3 % (38.7-73.9); Red Blood Count 3.29 MC/CUMM (3.8-5.5); Red Cell Distribution Width 21.3 % (9.3-17.3); White Blood Count 6.6 T/CUMM (4-12)
[2018-10-22 04:43] LABS: Platelet Count 7 T/CUMM (130-400)
[2018-10-22 04:48] LABS: Calcium 6.8 MG/DL (8.5-10.1); Osmolality,Calculated 295.8 MOS/KG (273-304)
[2018-10-22 05:20] LABS: Band Neutrophils 1 % (0-10); Lymphocytes 1 % (20-55); Metamyelocytes 1 %; Segmented Neutrophils 92 % (50-85)
[2018-10-22 05:22] LABS: Hypochromasia 1+; Platelet Estimate Decreased
[2018-10-22 05:39] LABS: Total Cells Counted 100
[2018-10-22] MEDS: LEVOTHYROXINE 100 MCG VIAL IV SCH (05:55)
[2018-10-22] MEDS: INSULIN REGULAR 100 UNIT/ML SUBCUT SCH ×4 (05:56→23:43)
[2018-10-22] MEDS ORDERED: TRANEXAMIC ACID 1,000 MG in SODIUM CHLORIDE 0.9% 100 ML IV ONE (09:00)
[2018-10-22] MEDS: SEVELAMER CARBONATE 800 MG TABLET PO SCH ×3 (09:03→17:58)
[2018-10-22] MEDS: MULTIVITAMIN (BEROCCA) TABLET PO SCH (09:03)
[2018-10-22] MEDS: PANTOPRAZOLE 40 MG VIAL IV SCH ×2 (09:03→20:18)
[2018-10-22] MEDS: ceFAZolin 2,000 MG in SYRINGE 1 EACH IV SCH ×2 (09:03→12:51)
[2018-10-22] MEDS: DEXAMETHASONE INJ 40 MG in SODIUM CHLORIDE 0.9% 50 ML IV SCH (15:00)
[2018-10-23 04:21] LABS: Basophils % 0.1 % (0.0-0.8); Hematocrit 32.4 VOL% (35.7-47.0); Immature Granulocytes Absolute 0.14 #; Lymphocytes # 0.1 10*3/uL (1.4-4.0); Mean Corpuscular HGB Conc 30.9 GM/DL (32-36); Mean Corpuscular Volume 98.2 FL (87-102); Mean Platelet Volume 14.1 FL (9.6-12.0); Monocytes % 2.5 % (1.7-12.7); NRBC # 0.02 10*3/uL; Neutrophils % 94.4 % (38.7-73.9); Red Cell Distribution Width 21.3 % (9.3-17.3); White Blood Count 7.1 T/CUMM (4-12)
[2018-10-23 04:26] LABS: Platelet Count 14 T/CUMM (130-400)
[2018-10-23] MEDS ORDERED: SODIUM CHLORIDE 0.9% 1,000 ML IV PRN (04:34)
[2018-10-23 04:37] LABS: Calcium 7.1 MG/DL (8.5-10.1); Osmolality,Calculated 294.4 MOS/KG (273-304)
[2018-10-23 04:52] LABS: Hypochromasia 1+; Microcytosis 1+; Nucleated Red Blood Cells 1 (0-5); Platelet Estimate Decreased; Polychromasia Few; Segmented Neutrophils 99 % (50-85); Total Cells Counted 100
[2018-10-23] MEDS: INSULIN REGULAR 100 UNIT/ML SUBCUT SCH ×3 (06:03→17:42)
[2018-10-23] MEDS: LEVOTHYROXINE 100 MCG VIAL IV SCH (06:05)
[2018-10-23] MEDS: PANTOPRAZOLE 40 MG VIAL IV SCH ×2 (09:00→10:30)
[2018-10-23] MEDS: DEXAMETHASONE INJ 40 MG in SODIUM CHLORIDE 0.9% 50 ML IV SCH ×2 (10:30→16:33)
[2018-10-23] MEDS: SEVELAMER CARBONATE 800 MG TABLET PO SCH ×3 (10:30→17:18)
[2018-10-23] MEDS: MULTIVITAMIN (BEROCCA) TABLET PO SCH (10:30)
[2018-10-23] MEDS ORDERED: ACETAMINOPHEN 325 MG TABLET PO ONE (11:41)
[2018-10-23] MEDS ORDERED: diphenhydrAMINE 50 MG/1 ML VIAL IV ONE (11:42)
[2018-10-23] MEDS ORDERED: TRANEXAMIC ACID 1,000 MG in SODIUM CHLORIDE 0.9% 100 ML IV ONE (12:30)
[2018-10-23] MEDS ORDERED: RITUXIMAB IV ONE (15:30)
[2018-10-23] MEDS ORDERED: SODIUM CHLORIDE 0.9% IV ONE (15:30)
[2018-10-23] MEDS: FAMOTIDINE 20 MG/2 ML VIAL IV SCH (22:30)
[2018-10-24] MEDS: INSULIN REGULAR 100 UNIT/ML SUBCUT SCH ×5 (00:45→23:31)
[2018-10-24] MEDS: SUCRALFATE 1 GM TABLET PO SCH ×5 (00:45→23:30)
[2018-10-24] MEDS: hydrALAZINE 20 MG/1 ML VIAL IV PRN ×2 (00:49→21:47)
[2018-10-24 05:42] LABS: Basophils % 0.1 % (0.0-0.8); Hematocrit 30.6 VOL% (35.7-47.0); Hemoglobin 9.3 GM/DL (12.0-16.0); Immature Granulocytes % 3.3 %; Immature Granulocytes Absolute 0.24 #; Lymphocytes # 0.1 10*3/uL (1.4-4.0); Lymphocytes % 1.1 % (21.3-54.2); Mean Corpuscular HGB Conc 30.4 GM/DL (32-36); Mean Corpuscular Volume 98.4 FL (87-102); Mean Platelet Volume 11.6 FL (9.6-12.0); Monocytes % 2.7 % (1.7-12.7); Neutrophils % 92.8 % (38.7-73.9); Platelet Count 44 T/CUMM (130-400); Red Blood Count 3.11 MC/CUMM (3.8-5.5); Red Cell Distribution Width 21.7 % (9.3-17.3); White Blood Count 7.3 T/CUMM (4-12)
[2018-10-24 06:09] LABS: Calcium 7.2 MG/DL (8.5-10.1); Osmolality,Calculated 294.7 MOS/KG (273-304)
[2018-10-24 06:33] LABS: Lymphocytes 2 % (20-55); Nucleated Red Blood Cells 1 (0-5); Segmented Neutrophils 96 % (50-85); Total Cells Counted 100
[2018-10-24 06:34] LABS: Anisocytosis 1+; Microcytosis Slight; Target Cells Slight
[2018-10-24 06:35] LABS: Spherocytes Slight
[2018-10-24 06:36] LABS: Platelet Estimate Decreased
[2018-10-24] MEDS: LEVOTHYROXINE 100 MCG VIAL IV SCH (06:41)
[2018-10-24] MEDS: FAMOTIDINE 20 MG/2 ML VIAL IV SCH ×2 (07:06→19:57)
[2018-10-24] MEDS: SEVELAMER CARBONATE 800 MG TABLET PO SCH ×3 (09:21→17:28)
[2018-10-24] MEDS: MULTIVITAMIN (BEROCCA) TABLET PO SCH (09:21)
[2018-10-24] MEDS: cloNIDine 0.3 MG/24 HR PATCH TRANSDERM SCH (09:22)
[2018-10-24] MEDS: ceFAZolin 2,000 MG in SYRINGE 1 EACH IV SCH (17:31)
[2018-10-24] MEDS: TRANEXAMIC ACID 1,000 MG in SODIUM CHLORIDE 0.9% 100 ML IV SCH (17:35)
[2018-10-24] MEDS: DEXAMETHASONE INJ 20 MG in SODIUM CHLORIDE 0.9% 50 ML IV SCH (17:51)
[2018-10-25 04:34] LABS: Basophils % 0.1 % (0.0-0.8); Hematocrit 32.5 VOL% (35.7-47.0); Hemoglobin 9.8 GM/DL (12.0-16.0); Immature Granulocytes % 4.5 %; Immature Granulocytes Absolute 0.35 #; Lymphocytes # 0.1 10*3/uL (1.4-4.0); Mean Corpuscular HGB Conc 30.2 GM/DL (32-36); Mean Corpuscular Volume 99.4 FL (87-102); Monocytes % 3.6 % (1.7-12.7); Neutrophils % 90.8 % (38.7-73.9); Red Blood Count 3.27 MC/CUMM (3.8-5.5); Red Cell Distribution Width 21.4 % (9.3-17.3); White Blood Count 7.8 T/CUMM (4-12)
[2018-10-25 04:39] LABS: Platelet Count 35 T/CUMM (130-400)
[2018-10-25 04:55] LABS: Calcium 7.4 MG/DL (8.5-10.1); Osmolality,Calculated 298.5 MOS/KG (273-304)
[2018-10-25 05:48] LABS: Segmented Neutrophils 96 % (50-85); Total Cells Counted 100
[2018-10-25 05:49] LABS: Anisocytosis 1+; Microcytosis Slight; Target Cells Slight
[2018-10-25 05:50] LABS: Platelet Estimate Decreased
[2018-10-25] MEDS: LEVOTHYROXINE 100 MCG VIAL IV SCH (06:16)
[2018-10-25] MEDS: SUCRALFATE 1 GM TABLET PO SCH ×4 (06:16→23:56)
[2018-10-25] MEDS: INSULIN REGULAR 100 UNIT/ML SUBCUT SCH ×4 (06:16→23:56)
[2018-10-25] MEDS: ACETAMINOPHEN 325 MG TABLET PO PRN ×2 (06:30→22:14)
[2018-10-25] MEDS: SEVELAMER CARBONATE 800 MG TABLET PO SCH ×3 (07:21→18:29)
[2018-10-25] MEDS: MULTIVITAMIN (BEROCCA) TABLET PO SCH (09:05)
[2018-10-25] MEDS: DEXAMETHASONE INJ 20 MG in SODIUM CHLORIDE 0.9% 50 ML IV SCH (10:13)
[2018-10-25] MEDS ORDERED: DICLOFENAC 1% GEL 100 GM TUBE TOP PRN (11:34)
[2018-10-25] MEDS: DEXAMETHASONE INJ 40 MG in SODIUM CHLORIDE 0.9% 50 ML IV SCH (14:56)
[2018-10-25] MEDS: FAMOTIDINE 20 MG/2 ML VIAL IV SCH ×2 (15:13→20:19)
[2018-10-25] MEDS: TRANEXAMIC ACID 1,000 MG in SODIUM CHLORIDE 0.9% 100 ML IV SCH (15:14)
[2018-10-26 04:55] LABS: Basophils % 0.2 % (0.0-0.8); Eosinophils # 0.1 10*3/uL (0.0-0.87); Eosinophils % 2.2 % (0.00-10.9); Hematocrit 27.9 VOL% (35.7-47.0); Hemoglobin 8.4 GM/DL (12.0-16.0); Immature Granulocytes % 1.2 %; Immature Granulocytes Absolute 0.06 #; Lymphocytes # 0.1 10*3/uL (1.4-4.0); Lymphocytes % 1.8 % (21.3-54.2); Mean Corpuscular HGB Conc 30.1 GM/DL (32-36); Mean Corpuscular Volume 97.9 FL (87-102); Mean Platelet Volume 12.8 FL (9.6-12.0); Monocytes % 6.9 % (1.7-12.7); Neutrophils % 87.7 % (38.7-73.9); Red Blood Count 2.85 MC/CUMM (3.8-5.5); Red Cell Distribution Width 22.2 % (9.3-17.3); White Blood Count 5.1 T/CUMM (4-12)
[2018-10-26 05:10] LABS: Platelet Count 26 T/CUMM (130-400)
[2018-10-26 05:23] LABS: Band Neutrophils 5 % (0-10); Calcium 7.3 MG/DL (8.5-10.1); Eosinophils 5 % (0-10); Lymphocytes 1 % (20-55); Osmolality,Calculated 304.7 MOS/KG (273-304); Segmented Neutrophils 84 % (50-85); Total Cells Counted 100
[2018-10-26 05:24] LABS: Anisocytosis 1+; Hypochromasia 1+
[2018-10-26 05:25] LABS: Acanthocytes Few; Platelet Estimate Decreased
[2018-10-26] MEDS: SUCRALFATE 1 GM TABLET PO SCH ×4 (05:49→23:50)
[2018-10-26] MEDS: LEVOTHYROXINE 100 MCG VIAL IV SCH (05:50)
[2018-10-26] MEDS: INSULIN REGULAR 100 UNIT/ML SUBCUT SCH ×4 (05:54→23:50)
[2018-10-26] MEDS: DEXAMETHASONE INJ 20 MG in SODIUM CHLORIDE 0.9% 50 ML IV SCH (11:03)
[2018-10-26] MEDS: MULTIVITAMIN (BEROCCA) TABLET PO SCH (11:03)
[2018-10-26] MEDS: SEVELAMER CARBONATE 800 MG TABLET PO SCH ×3 (11:03→18:40)
[2018-10-26] MEDS: FAMOTIDINE 20 MG/2 ML VIAL IV SCH ×2 (11:03→21:04)
[2018-10-26] MEDS: TRANEXAMIC ACID 1,000 MG in SODIUM CHLORIDE 0.9% 100 ML IV SCH (11:14)
[2018-10-27 06:11] LABS: Basophils % 0.1 % (0.0-0.8); Hematocrit 28.6 VOL% (35.7-47.0); Hemoglobin 8.8 GM/DL (12.0-16.0); Immature Granulocytes % 0.8 %; Immature Granulocytes Absolute 0.07 #; Lymphocytes # 0.1 10*3/uL (1.4-4.0); Lymphocytes % 1.5 % (21.3-54.2); Mean Corpuscular HGB Conc 30.8 GM/DL (32-36); Mean Corpuscular Volume 96.6 FL (87-102); Monocytes % 7.5 % (1.7-12.7); Neutrophils % 90.1 % (38.7-73.9); Red Blood Count 2.96 MC/CUMM (3.8-5.5); White Blood Count 8.4 T/CUMM (4-12)
[2018-10-27] MEDS: SUCRALFATE 1 GM TABLET PO SCH ×3 (06:15→17:12)
[2018-10-27 06:17] LABS: Platelet Count 29 T/CUMM (130-400)
[2018-10-27] MEDS: LEVOTHYROXINE 100 MCG VIAL IV SCH (06:18)
[2018-10-27] MEDS: INSULIN REGULAR 100 UNIT/ML SUBCUT SCH ×3 (06:19→19:41)
[2018-10-27 06:26] LABS: Calcium 7.6 MG/DL (8.5-10.1); Osmolality,Calculated 311.8 MOS/KG (273-304)
[2018-10-27 07:31] LABS: Hypochromasia 1+; Lymphocytes 2 % (20-55); Microcytosis Slight; Platelet Estimate Decreased; Segmented Neutrophils 96 % (50-85); Total Cells Counted 100
[2018-10-27] MEDS ORDERED: TUBERCULIN SKIN TEST 0.1 ML SYRINGE INTRADERM ONE (10:07)
[2018-10-27] MEDS: SEVELAMER CARBONATE 800 MG TABLET PO SCH ×3 (12:58→17:12)
[2018-10-27] MEDS: MULTIVITAMIN (BEROCCA) TABLET PO SCH (13:41)
[2018-10-27] MEDS: FAMOTIDINE 20 MG/2 ML VIAL IV SCH ×2 (13:42→21:50)
[2018-10-27] MEDS: DEXAMETHASONE INJ 10 MG in SODIUM CHLORIDE 0.9% 50 ML IV SCH (16:34)
[2018-10-27] MEDS: hydrALAZINE 20 MG/1 ML VIAL IV PRN (21:56)
[2018-10-28] MEDS: INSULIN REGULAR 100 UNIT/ML SUBCUT SCH ×4 (00:22→17:27)
[2018-10-28] MEDS: SUCRALFATE 1 GM TABLET PO SCH ×4 (00:24→17:29)
[2018-10-28 05:30] LABS: Basophils % 0.1 % (0.0-0.8); Hematocrit 27.7 VOL% (35.7-47.0); Hemoglobin 8.6 GM/DL (12.0-16.0); Immature Granulocytes % 1.6 %; Immature Granulocytes Absolute 0.12 #; Lymphocytes # 0.2 10*3/uL (1.4-4.0); Lymphocytes % 2.3 % (21.3-54.2); Mean Corpuscular Volume 95.8 FL (87-102); Monocytes % 4.9 % (1.7-12.7); Neutrophils % 91.1 % (38.7-73.9); Red Blood Count 2.89 MC/CUMM (3.8-5.5); Red Cell Distribution Width 22.1 % (9.3-17.3); White Blood Count 7.5 T/CUMM (4-12)
[2018-10-28 05:35] LABS: Platelet Count 22 T/CUMM (130-400)
[2018-10-28 06:11] LABS: Anisocytosis 1+; Hypochromasia 1+; Lymphocytes 6 % (20-55); Macrocytosis 1+; Microcytosis 1+; Poikilocytosis 1+; Segmented Neutrophils 89 % (50-85); Total Cells Counted 100
[2018-10-28 06:12] LABS: Ovalocytes Few; Platelet Estimate Decreased; Polychromasia Few; Target Cells Few
[2018-10-28] MEDS: LEVOTHYROXINE 100 MCG VIAL IV SCH (06:18)
[2018-10-28] MEDS: SEVELAMER CARBONATE 800 MG TABLET PO SCH ×3 (10:19→17:29)
[2018-10-28] MEDS: MULTIVITAMIN (BEROCCA) TABLET PO SCH (10:19)
[2018-10-28] MEDS: FAMOTIDINE 20 MG/2 ML VIAL IV SCH (10:19)
[2018-10-28] MEDS ORDERED: cloNIDine 0.1 MG TABLET ONE (19:23)
[2018-10-28 19:45] LABS: Basophils % 0.3 % (0.0-0.8); Eosinophils % 0.3 % (0.00-10.9); Hematocrit 26.4 VOL% (35.7-47.0); Hemoglobin 8.2 GM/DL (12.0-16.0); Immature Granulocytes % 1.1 %; Immature Granulocytes Absolute 0.08 #; Lymphocytes # 0.1 10*3/uL (1.4-4.0); Lymphocytes % 1.9 % (21.3-54.2); Mean Corpuscular HGB Conc 31.1 GM/DL (32-36); Mean Corpuscular Volume 96.4 FL (87-102); Mean Platelet Volume 12.6 FL (9.6-12.0); Monocytes % 2.5 % (1.7-12.7); Neutrophils % 93.9 % (38.7-73.9); Red Blood Count 2.74 MC/CUMM (3.8-5.5); Red Cell Distribution Width 22.1 % (9.3-17.3); White Blood Count 7.3 T/CUMM (4-12)
[2018-10-28 19:52] LABS: Platelet Count 20 T/CUMM (130-400)
[2018-10-28 20:02] LABS: Alanine Aminotransferase < 6 U/L (13-56); Alkaline Phosphatase 279 U/L (45-117); Aspartate Amino Transferase 30 U/L (0-37); Blood Urea Nitrogen 61 MG/DL (7-18); Calcium 7.8 MG/DL (8.5-10.1); Glucose 143 MG/DL (74-106); Osmolality,Calculated 295.5 MOS/KG (273-304); Total Protein 6.8 G/DL (6.4-8.3)
[2018-10-28] MEDS ORDERED: HALOPERIDOL 5 MG/ML AMP IV ONE (20:05)
[2018-10-28] MEDS ORDERED: MEPERIDINE 25 MG/1 ML VIAL IV ONE (20:06)
[2018-10-28 20:54] LABS: Band Neutrophils 5 % (0-10); Eosinophils 1 % (0-10); Lymphocytes 2 % (20-55); Platelet Estimate Decreased; Segmented Neutrophils 90 % (50-85); Total Cells Counted 100
[2018-10-28] MEDS: ACETAMINOPHEN 325 MG TABLET PO PRN (21:55)
[2018-10-29 05:17] LABS: Basophils % 0.2 % (0.0-0.8); Eosinophils % 0.3 % (0.00-10.9); Hematocrit 23.8 VOL% (35.7-47.0); Hemoglobin 7.4 GM/DL (12.0-16.0); Immature Granulocytes % 0.7 %; Immature Granulocytes Absolute 0.07 #; Lymphocytes # 0.1 10*3/uL (1.4-4.0); Lymphocytes % 1.1 % (21.3-54.2); Mean Corpuscular HGB Conc 31.1 GM/DL (32-36); Mean Corpuscular Volume 96.7 FL (87-102); Monocytes % 2.5 % (1.7-12.7); Neutrophils % 95.2 % (38.7-73.9); Red Blood Count 2.46 MC/CUMM (3.8-5.5); Red Cell Distribution Width 21.9 % (9.3-17.3); White Blood Count 9.6 T/CUMM (4-12)
[2018-10-29 05:24] LABS: Platelet Count 17 T/CUMM (130-400)
[2018-10-29 05:29] LABS: Calcium 7.8 MG/DL (8.5-10.1); Osmolality,Calculated 296.4 MOS/KG (273-304)
[2018-10-29 05:54] LABS: Band Neutrophils 3 % (0-10); Lymphocytes 2 % (20-55); Myelocytes 1 %; Segmented Neutrophils 93 % (50-85); Total Cells Counted 100
[2018-10-29 05:55] LABS: Anisocytosis 1+; Hypochromasia 1+; Platelet Estimate Decreased
[2018-10-29] MEDS: INSULIN REGULAR 100 UNIT/ML SUBCUT SCH ×3 (07:00→19:30)
[2018-10-29] MEDS: SUCRALFATE 1 GM TABLET PO SCH ×4 (07:01→17:00)
[2018-10-29] MEDS: DEXAMETHASONE INJ 10 MG in SODIUM CHLORIDE 0.9% 50 ML IV SCH (07:31)
[2018-10-29] MEDS: SEVELAMER CARBONATE 800 MG TABLET PO SCH ×3 (08:40→16:57)
[2018-10-29] MEDS: MULTIVITAMIN (BEROCCA) TABLET PO SCH (08:41)
[2018-10-29] MEDS: PANTOPRAZOLE 40 MG TABLET PO SCH (08:41)
[2018-10-29] MEDS: DEXAMETHASONE 4 MG TABLET PO SCH (08:41)
[2018-10-29] MEDS ORDERED: SODIUM CHLORIDE 0.9% 500 ML IV ONE ×2 (16:44→17:22)
[2018-10-29] MEDS ORDERED: DIGOXIN 0.5 MG/2 ML AMP IV ONE (19:06)
[2018-10-30] MEDS: INSULIN REGULAR 100 UNIT/ML SUBCUT SCH ×4 (00:27→18:24)
[2018-10-30] MEDS: SUCRALFATE 1 GM TABLET PO SCH ×4 (00:27→18:26)
[2018-10-30 04:39] LABS: Basophils % 0.2 % (0.0-0.8); Hematocrit 25.3 VOL% (35.7-47.0); Hemoglobin 7.8 GM/DL (12.0-16.0); Immature Granulocytes % 0.8 %; Immature Granulocytes Absolute 0.13 #; Lymphocytes # 0.1 10*3/uL (1.4-4.0); Lymphocytes % 0.6 % (21.3-54.2); Mean Corpuscular HGB Conc 30.8 GM/DL (32-36); Mean Corpuscular Volume 97.7 FL (87-102); Mean Platelet Volume 13.7 FL (9.6-12.0); Monocytes % 2.7 % (1.7-12.7); Neutrophils % 95.7 % (38.7-73.9); Red Blood Count 2.59 MC/CUMM (3.8-5.5); Red Cell Distribution Width 21.4 % (9.3-17.3); White Blood Count 16.1 T/CUMM (4-12)
[2018-10-30 04:42] LABS: Platelet Count 17 T/CUMM (130-400)
[2018-10-30 04:50] LABS: INR 1.2; PT Patient Result 13.4 SECS; Partial Thromboplastin Time 32.5 SECS (0-40)
[2018-10-30 05:07] LABS: Band Neutrophils 2 % (0-10); Lymphocytes 1 % (20-55); Segmented Neutrophils 95 % (50-85); Total Cells Counted 100
[2018-10-30 05:08] LABS: Anisocytosis 1+; Hypochromasia 1+; Platelet Estimate Decreased
[2018-10-30] MEDS: LEVOTHYROXINE 50 MCG TABLET PO SCH (05:57)
[2018-10-30] MEDS: SEVELAMER CARBONATE 800 MG TABLET PO SCH ×3 (09:38→18:24)
[2018-10-30] MEDS: MULTIVITAMIN (BEROCCA) TABLET PO SCH (09:38)
[2018-10-30] MEDS: PANTOPRAZOLE 40 MG TABLET PO SCH (09:39)
[2018-10-30] MEDS: DEXAMETHASONE 4 MG TABLET PO SCH (09:39)
[2018-10-30 11:02] LABS: Calcium 8.2 MG/DL (8.5-10.1)
[2018-10-30] MEDS ORDERED: ACETAMINOPHEN 325 MG/10.15 ML UDCUP PO ONE (11:51)
[2018-10-30] MEDS ORDERED: diphenhydrAMINE 50 MG/1 ML VIAL IV ONE (11:52)
[2018-10-30] MEDS: ASCORBIC ACID 500 MG TABLET PO SCH ×2 (15:17→21:12)
[2018-10-30] MEDS: CARVEDILOL 6.25 MG TABLET PO SCH ×2 (16:32→21:13)
[2018-10-31] MEDS: SUCRALFATE 1 GM TABLET PO SCH ×5 (00:47→23:49)
[2018-10-31] MEDS: INSULIN REGULAR 100 UNIT/ML SUBCUT SCH ×5 (00:58→23:49)
[2018-10-31 05:41] LABS: Basophils % 0.1 % (0.0-0.8); Hematocrit 27.8 VOL% (35.7-47.0); Hemoglobin 8.9 GM/DL (12.0-16.0); Immature Granulocytes % 1.2 %; Immature Granulocytes Absolute 0.14 #; Lymphocytes # 0.1 10*3/uL (1.4-4.0); Lymphocytes % 0.6 % (21.3-54.2); Mean Corpuscular Volume 93.3 FL (87-102); Monocytes % 3.6 % (1.7-12.7); NRBC # 0.02 10*3/uL; Neutrophils % 94.5 % (38.7-73.9); Red Blood Count 2.98 MC/CUMM (3.8-5.5); Red Cell Distribution Width 21.3 % (9.3-17.3); White Blood Count 11.3 T/CUMM (4-12)
[2018-10-31] MEDS: LEVOTHYROXINE 50 MCG TABLET PO SCH (05:42)
[2018-10-31 05:43] LABS: Platelet Count 10 T/CUMM (130-400)
[2018-10-31 07:00] LABS: Band Neutrophils 1 % (0-10); Burr Cells 1+; Lymphocytes 5 % (20-55); Microcytosis Slight; Ovalocytes Few; Platelet Estimate Decreased; Polychromasia Few; Schistocytes Few; Segmented Neutrophils 94 % (50-85); Total Cells Counted 100
[2018-10-31] MEDS: SEVELAMER CARBONATE 800 MG TABLET PO SCH ×3 (08:39→18:18)
[2018-10-31] MEDS: ASCORBIC ACID 500 MG TABLET PO SCH ×2 (08:39→21:17)
[2018-10-31] MEDS: DEXAMETHASONE 4 MG TABLET PO SCH (08:39)
[2018-10-31] MEDS: MULTIVITAMIN (BEROCCA) TABLET PO SCH (08:40)
[2018-10-31] MEDS: PANTOPRAZOLE 40 MG TABLET PO SCH (08:40)
[2018-10-31] MEDS: CARVEDILOL 6.25 MG TABLET PO SCH ×2 (08:40→21:17)
[2018-10-31] MEDS ORDERED: SODIUM CHLORIDE 0.9% 1,000 ML IV PRN (08:44)
[2018-10-31] MEDS: cloNIDine 0.3 MG/24 HR PATCH TRANSDERM SCH (18:18)
[2018-11-01] MEDS: SUCRALFATE 1 GM TABLET PO SCH ×3 (05:32→18:27)
[2018-11-01] MEDS: LEVOTHYROXINE 50 MCG TABLET PO SCH (05:32)
[2018-11-01] MEDS: INSULIN REGULAR 100 UNIT/ML SUBCUT SCH ×3 (05:37→18:27)
[2018-11-01 05:53] LABS: Basophils % 0.1 % (0.0-0.8); Eosinophils % 0.1 % (0.00-10.9); Hematocrit 26.8 VOL% (35.7-47.0); Hemoglobin 8.5 GM/DL (12.0-16.0); Immature Granulocytes Absolute 0.07 #; Lymphocytes # 0.1 10*3/uL (1.4-4.0); Lymphocytes % 1.4 % (21.3-54.2); Mean Corpuscular HGB Conc 31.7 GM/DL (32-36); Mean Corpuscular Volume 95.7 FL (87-102); Mean Platelet Volume 12.1 FL (9.6-12.0); Monocytes % 6.8 % (1.7-12.7); Neutrophils % 90.6 % (38.7-73.9); Red Cell Distribution Width 21.4 % (9.3-17.3); White Blood Count 7.2 T/CUMM (4-12)
[2018-11-01 06:02] LABS: Platelet Count 14 T/CUMM (130-400)
[2018-11-01 06:28] LABS: Hypochromasia 1+; Lymphocytes 3 % (20-55); Nucleated Red Blood Cells 1 (0-5); Platelet Estimate Decreased; Segmented Neutrophils 93 % (50-85)
[2018-11-01 06:29] LABS: Total Cells Counted 100
[2018-11-01] MEDS: CARVEDILOL 6.25 MG TABLET PO SCH ×2 (08:59→21:21)
[2018-11-01] MEDS: SEVELAMER CARBONATE 800 MG TABLET PO SCH ×3 (08:59→18:27)
[2018-11-01] MEDS: MULTIVITAMIN (BEROCCA) TABLET PO SCH (08:59)
[2018-11-01] MEDS: PANTOPRAZOLE 40 MG TABLET PO SCH (08:59)
[2018-11-01] MEDS: ASCORBIC ACID 500 MG TABLET PO SCH ×2 (08:59→21:20)
[2018-11-01] MEDS: DEXAMETHASONE 4 MG TABLET PO SCH (08:59)
[2018-11-02] MEDS: INSULIN REGULAR 100 UNIT/ML SUBCUT SCH ×4 (00:26→19:11)
[2018-11-02] MEDS: SUCRALFATE 1 GM TABLET PO SCH ×4 (04:26→17:17)
[2018-11-02 05:49] LABS: Basophils % 0.2 % (0.0-0.8); Hematocrit 22.5 VOL% (35.7-47.0); Hemoglobin 7.1 GM/DL (12.0-16.0); Immature Granulocytes Absolute 0.04 #; Lymphocytes # 0.1 10*3/uL (1.4-4.0); Lymphocytes % 2.4 % (21.3-54.2); Mean Corpuscular HGB Conc 31.6 GM/DL (32-36); Mean Corpuscular Volume 95.7 FL (87-102); Monocytes % 7.7 % (1.7-12.7); Neutrophils % 88.7 % (38.7-73.9); Red Blood Count 2.35 MC/CUMM (3.8-5.5); Red Cell Distribution Width 21.2 % (9.3-17.3); White Blood Count 4.2 T/CUMM (4-12)
[2018-11-02 05:55] LABS: Platelet Count 15 T/CUMM (130-400)
[2018-11-02 06:15] LABS: Band Neutrophils 1 % (0-10); Hypochromasia 1+; Lymphocytes 1 % (20-55); Microcytosis Slight; Nucleated Red Blood Cells 1 (0-5); Platelet Estimate Decreased; Segmented Neutrophils 94 % (50-85); Total Cells Counted 100
[2018-11-02] MEDS: LEVOTHYROXINE 50 MCG TABLET PO SCH (07:02)
[2018-11-02] MEDS: DEXAMETHASONE 4 MG TABLET PO SCH (10:09)
[2018-11-02] MEDS: SEVELAMER CARBONATE 800 MG TABLET PO SCH ×3 (10:09→17:17)
[2018-11-02] MEDS: CARVEDILOL 6.25 MG TABLET PO SCH ×2 (10:09→20:51)
[2018-11-02] MEDS: PANTOPRAZOLE 40 MG TABLET PO SCH (10:09)
[2018-11-02] MEDS: MULTIVITAMIN (BEROCCA) TABLET PO SCH (10:09)
[2018-11-02] MEDS: ASCORBIC ACID 500 MG TABLET PO SCH ×2 (10:09→20:51)
[2018-11-03] MEDS: ACETAMINOPHEN 325 MG TABLET PO PRN (00:35)
[2018-11-03] MEDS: SUCRALFATE 1 GM TABLET PO SCH ×3 (00:35→12:34)
[2018-11-03] MEDS: INSULIN REGULAR 100 UNIT/ML SUBCUT SCH ×3 (00:37→12:35)
[2018-11-03 05:14] LABS: Eosinophils % 0.3 % (0.00-10.9); Hematocrit 22.2 VOL% (35.7-47.0); Hemoglobin 6.9 GM/DL (12.0-16.0); Immature Granulocytes % 0.8 %; Immature Granulocytes Absolute 0.03 #; Lymphocytes # 0.1 10*3/uL (1.4-4.0); Mean Corpuscular HGB Conc 31.1 GM/DL (32-36); Mean Corpuscular Volume 95.3 FL (87-102); Monocytes % 7.4 % (1.7-12.7); Neutrophils % 88.5 % (38.7-73.9); Red Blood Count 2.33 MC/CUMM (3.8-5.5); White Blood Count 3.7 T/CUMM (4-12)
[2018-11-03] MEDS: LEVOTHYROXINE 50 MCG TABLET PO SCH (06:00)
[2018-11-03 06:44] LABS: Platelet Count 16 T/CUMM (130-400)
[2018-11-03 06:47] LABS: Anisocytosis 2+; Band Neutrophils 3 % (0-10); Hypochromasia Slight; Lymphocytes 3 % (20-55); Macrocytosis 2+; Metamyelocytes 2 %; Platelet Estimate Decreased; Polychromasia 1+; Segmented Neutrophils 85 % (50-85); Total Cells Counted 100
[2018-11-03] MEDS: DEXAMETHASONE 4 MG TABLET PO SCH (12:34)
[2018-11-03] MEDS: CARVEDILOL 6.25 MG TABLET PO SCH (12:34)
[2018-11-03] MEDS: SEVELAMER CARBONATE 800 MG TABLET PO SCH ×2 (12:34)
[2018-11-03] MEDS: MULTIVITAMIN (BEROCCA) TABLET PO SCH (12:34)
[2018-11-03] MEDS: PANTOPRAZOLE 40 MG TABLET PO SCH (12:34)
[2018-11-03] MEDS: ASCORBIC ACID 500 MG TABLET PO SCH (12:35)
[2018-11-03 13:10] VITALS: BP 128/71
== END 2018-11-03 15:31 | DRG 813 ==
LOC: EDUNIT# → EDBD → N.ED 00:26 → SUATTDRO 03:31 → N.EDINP 03:31 → N.CC 04:11 → N.4E 10-25 01:32
PROVIDERS: ADMIT Family Medicine; ATTEND Hospitalist

== ENCOUNTER 2018-11-08 08:23 | Inpatient (IN) ==
[2018-11-08] MEDS ORDERED: NOREPINEPHRINE 4 MG/4 ML VIAL IV ONE ×2 (08:26→08:29)
[2018-11-08] MEDS: NOREPINEPHRINE 8 MG in SODIUM CHLORIDE 0.9% 242 ML IV PRN ×2 (08:46→14:56)
[2018-11-08] MEDS ORDERED: cefTRIAXone 1,000 MG in SODIUM CHLORIDE 0.9% 100 ML IV STA (08:46)
[2018-11-08] MEDS ORDERED: SODIUM CHLORIDE 0.9% 1,000 ML IV PRN (09:13)
[2018-11-08 09:25] LABS: Albumin 1.9 G/DL (3.4-5.0); Calcium 7.5 MG/DL (8.5-10.1); Total Protein 5.9 G/DL (6.4-8.3)
[2018-11-08 09:43] LABS: ABG Base Excess -6.1 MMOL/L (-2.5-2.5); ABG HCO3 19.3 MMOL/L (20-26); ABG PCO2 41.4 MM HG (35-48); ABG PH 7.292 (7.35-7.45)
[2018-11-08 09:46] LABS: Basophils % 0.2 % (0.0-0.8); Eosinophils % 0.1 % (0.00-10.9); Hematocrit 26.9 VOL% (35.7-47.0); Hemoglobin 7.8 GM/DL (12.0-16.0); Immature Granulocytes % 2.9 %; Immature Granulocytes Absolute 0.43 #; Lymphocytes # 0.3 10*3/uL (1.4-4.0); Lymphocytes % 1.7 % (21.3-54.2); Mean Corpuscular Volume 103.9 FL (87-102); Mean Platelet Volume 12.2 FL (9.6-12.0); Monocytes % 1.1 % (1.7-12.7); NRBC # 0.04 10*3/uL; Platelet Count 40 T/CUMM (130-400); Red Blood Count 2.59 MC/CUMM (3.8-5.5); Red Cell Distribution Width 22.2 % (9.3-17.3)
[2018-11-08 09:55] LABS: INR 1.4; PT Patient Result 14.7 SECS; Partial Thromboplastin Time 37.9 SECS (0-40)
[2018-11-08 09:57] LABS: Anisocytosis Slight; Band Neutrophils 31 % (0-10); Lymphocytes 5 % (20-55); Platelet Estimate Decreased; Poikilocytosis Slight; Segmented Neutrophils 63 % (50-85); Total Cells Counted 100
[2018-11-08 09:58] LABS: Macrocytosis 1+
[2018-11-08] MEDS ORDERED: VANCOMYCIN INJ 1,000 MG in SODIUM CHLORIDE 0.9% 250 ML IV ONE (10:51)
[2018-11-08] MEDS ORDERED: PIPERACILLIN/TAZOBACTAM 2,250 MG in SODIUM CHLORIDE 0.9% 100 ML IV SCH (11:00)
[2018-11-08] MEDS ORDERED: ATROPINE 1 MG/10 ML SYRINGE ONE (12:32)
[2018-11-08] MEDS ORDERED: DOPamine 800 MG/250 ML PREMIX IV ONE (12:32)
[2018-11-08] MEDS ORDERED: ATROPINE 1 MG/10 ML SYRINGE IV ONE (12:33)
[2018-11-08] MEDS ORDERED: DOPamine 800 MG/250 ML PREMIX IV PRN (12:33)
[2018-11-08 13:16] LABS: ABG Base Excess -0.1 MMOL/L (-2.5-2.5); ABG HCO3 24.4 MMOL/L (20-26); ABG PCO2 37.4 MM HG (35-48); ABG PH 7.419 (7.35-7.45); ABG TCO2 22.5 MMOL/L (23-27); Allen Test Positive; Pt O2 Delivery Device Ventilator
[2018-11-08] MEDS ORDERED: CALCIUM GLUCONATE 1,000 MG in SODIUM CHLORIDE 0.9% 100 ML IV ONE (14:06)
[2018-11-08] MEDS ORDERED: CALCIUM GLUCONATE 1,000 MG/10 ML VIAL IV ONE (14:08)
[2018-11-08] MEDS ORDERED: LORazepam 2 MG/1 ML VIAL IV PRN (17:40)
[2018-11-08] MEDS ORDERED: HYDROmorphone 2 MG/1 ML VIAL IV PRN (17:42)
[2018-11-08 17:46] VITALS: BP 129/36
[2018-11-08] MEDS ORDERED: GLYCOPYRROLATE 0.4 MG/2 ML VIAL IV SCH (18:00)
[2018-11-09] MEDS ORDERED: PANTOPRAZOLE 40 MG VIAL IV SCH ×2 (09:00)
== END 2018-11-08 18:19 | disposition expired | DRG 208 ==
LOC: EDBD → EDUNIT# → N.ED 08:23 → N.EDINP 09:37 → N.ICU 09:58
PROVIDERS: ADMIT Internal Medicine; ATTEND Internal Medicine